=== PATIENT | male | born 1935 | race Caucasian/White ===

== ENCOUNTER → 2018-08-05 11:59 | Outpatient (CLI) | payer MEDICARE, BC | END | disposition home or self-care (01) | LOC: D.HCCARDIO 11:59 | PROVIDERS: ATTEND Internal Medicine Cardiovascular Disease | DX: I20.9 Angina pectoris, unspecified (principal) ==

== ENCOUNTER 2018-08-26 11:15 | Inpatient (IN) | payer MEDICARE, BC ==
[~2018-08-26] VITALS: Ht 172.7 cm; Wt 95.2 kg
--- NOTE | ~2018-08-26 | HEMODYNAMI ---
PATIENT:MALINDA FAN JR MEDICAL RECORD: [id number] : 37 LOCATION:[facility] ADMISSION DATE: 08/26/18 Generatedon:08/26/201814:58 Patient name: MALINDA FAN Patient #: [id number] SSN: : 1935 Date of study: 08/26/2018 Page: Of Hemodynamic Procedure Report Patient Data Patient Demographics Procedure consent was obtained First Name: MALINDA Gender: Male Last Name: MITA Suffix: Jr Osorio Initial: VLADIMIR : 1935 Patient #: [id number] Age: 82 year(s) Race: Unknown Additional ID: [id number] Contact details Address: [address] [place] [address] State: [place] City: [facility] Zip code: [address] Past Medical History Allergies: No known allergies Admission Admission Data Admission Date: 08/26/2018 Admission Time: 11:15 Admit Source: Other Lab Results Lab Result Date: 08/26/2018 Lab Result Time: 12:10 Biochemistry Name Units Result Min Max BUN mg/dl 49 --(----)-* 7 18 Creatinine mg/dl 2.3 --(----)-* 0.6 1.3 CBC Name Units Result Min Max Hematocrit % 37.2 *-(----)-- 42 54 Hemoglobin g/dl 12.5 *-(----)-- 13.5 17.5 Procedure Procedure Types Cath Procedure Diagnostic Procedure LHC LH w/Coronaries Sedation Charges Moderate Sedation up to 30 minutes Procedure Description Procedure Date Procedure Date: 08/26/2018 Procedure Start Time: 14:31 Procedure End Time: 14:57 Procedure Staff Name Function Mikel Lozoya MD Performing Physician Quinton Parada RT Monitor Maico Moncada RT Scrub Rj Holder RN Nurse Procedure Data Cath Procedure Fluoroscopy Diagnostic fluoroscopy Total fluoroscopy Time: 7.2 time: 7.2 min min Diagnostic fluoroscopy Total fluoroscopy dose: dose: 1561 mGy 1561 mGy Contrast Material Contrast Material Type Amount (ml) Isovue 300 144 Entry Location Entry Primary Successful Side Size Upsize Upsize Entry Closure Succes sful Closure Location (Fr) 1 (Fr) 2 (Fr) Remarks Device Remarks Femoral Right 5 Fr 6 Fr 6 Fr Exoseal artery Short Short Estimated blood loss: 5 ml Diagnostic catheters Device Type Used For End Catheter Placement MULTIPACK JL 4.0 5Fr Procedure catheter MULTIPACK 3DRC 5Fr Procedure catheter MULTIPACK Pigtail 5 Fr Procedure catheter DIAGNOSTIC AL1 5Fr Procedure catheter ([id number]) DIAGNOSTIC AR2 MOD 5 Fr Procedure catheter ([id number]) DIAGNOSTIC AL1 5Fr Procedure catheter ([id number]) Procedure Complications No complications Procedure Medications Medication Administration Route Dosage 0.9% NaCl I.V. 100 ml/hr Oxygen etCO2 Nasal cannula 2 l/min Heparin Flush Bag added to field 2 bags (1000units/500ml NS) Lidocaine 2% added to field 20 Versed I.V. 1 mg Fentanyl I.V. 50 mcg Versed I.V. 1 mg Fentanyl I.V. 50 mcg Hemodynamics Rest HGB: 12.5 (g/dl) Heart Rate: 89 (bpm) Pressure Samples Time Site Value (mmHg) Purpose Heart Use Rate(bpm) 14:40 LV 172/-2,22 Snapshot 86 14:41 AO 129/56(85) Pullback 78 14:41 LV 194/6,22 Pullback 78 Gradients Valve Time Site 1 Site 2 Mean SEP/DFP Peak To Heart Use (mmHg) (sec/min) Peak Rate (mmHg) (bpm) Aortic 14:41 LV AO 43 23 65 78 194/6,22 129/56(85) Calculations Valve P-P Mean Valve Index Valve Source Name Gradient Area Flow (cm2) Aortic 65 43 65 43 Snapshots Pre Cath Intra NCS Post Cath Vital Signs Time Heart Resp SPO2 etCO2 NIBP (mmHg) Rhythm Pain Sedation Rate (ipm) (%) (mmHg) Status Level (bpm) 14:17:22 84 19 95 0 136/77(112) NSR 0 (11) 10(A) , No pain 14:21:36 75 13 96 34.6 130/66(113) NSR 0 (11) 10(A) , No pain 14:25:50 78 17 94 36.1 124/65(97) NSR 0 (11) 10(A) , No pain 14:29:56 77 16 97 36.1 129/75(108) NSR 0 (11) 10(A) , No pain 14:34:08 73 14 96 0 129/66(103) NSR 0 (11) 10(A) , No pain 14:38:22 85 11 87 38.4 120/64(94) NSR 0 (11) 10(A) , No pain 14:42:32 74 19 98 38.4 123/61(100) NSR 0 (11) 9(A) , No pain 14:46:46 64 16 96 40.6 121/59(90) NSR 0 (11) 9(A) , No pain 14:50:57 78 15 98 37.6 123/61(106) NSR 0 (11) 9(A) , No pain 14:55:07 82 18 99 36.8 124/64(101) NSR 0 (11) 10(A) , No pain Medications Time Medication Route Dose Verified Delivered Reason Notes Eff ectiveness by by 14:20:55 0.9% NaCl I.V. 100 Rj Rj Per ml/hr Glory Holder physician RN RN 14:21:07 Oxygen etCO2 2 Rj Rj for low 02 Nasal l/min Lorigan Lorigan sats cannula RN RN 14:21:16 Heparin Flush added 2 Rj Rj used for Bag to bags Lorigan Lorigan procedure (1000units/500ml field RN RN NS) 14:21:26 Lidocaine 2% added 20ml Rj Rj for local to vial Lorigan Lorigan anesthetic field RN RN 14:24:08 Versed I.V. 1 mg Rj Rj for Lorigan Lorigan sedation RN RN 14:24:17 Fentanyl I.V. 50 Rj Rj for mcg Lorigan Lorigan sedation RN RN 14:31:00 Versed I.V. 1 mg Rj Rj for Lorigan Lorigan sedation RN RN 14:31:04 Fentanyl I.V. 50 Rj Rj for mcg Lorigan Lorigan sedation RN marketing regional consultant Log Time Note 13:39:04 Informed consent obtained and on chart 13:39:08 Admit Source: Other 13:39:23 Diagnostic Cath status Elective 13:39:24 Time tracking: Regular hours (M-F 7:00 - 5:00) 13:39:28 Plan of Care:Hemodynamics will remain stable., Cardiac rhythm will remain stable., Comfort level will be maintained., Respiratory function will remain adequate., Patient/ family verbilizes understanding of procedure., Procedure tolerated without complication., Recovers from procedure without complications.. 13:39:40 H&P Date Dictated: 07/31/2018 Within 30 days and on chart., H&P Addendum completed by physician on day of procedure. (MUST COMPLETE FOR ALL OUTPATIENTS). 13:39:49 Patient allergic to No known allergies 14:01:39 Rj Holder RN sent for patient. Start room use. 14:10:31 Patient received from Pre/Post Procedure Room to CCL 2 Alert and oriented. Tansferred to table in Supine position. 14:10:33 Warm blankets applied, and emeka hugger turned on for patient comfort. 14:10:33 Correct patient and procedure confirmed by team. 14:10:34 ECG and BP/O2 sat monitors applied to patient. 14:16:16 Vital chart was started 14:20:26 Baseline sample Acquired. 14:20:38 Rhythm: 1st degree heart block 14:20:39 Full Disclosure recording started 14:20:47 Pre-procedure instructions explained to patient. 14:20:48 Pre-op teaching completed and patient verbalized understanding. 14:20:55 0.9% NaCl 100 ml/hr I.V. was administered by Rj Holder RN; Per physician; 14:20:55 Family in waiting room. 14:20:57 Patient NPO since Breakfast. 14:20:59 Is the patient allergic to Iodine/contrast media? No. 14:21:02 Is patient on blood thinner?No 14:21:03 Patient diabetic? Yes. 14:21:04 If diabetic: On Metformin? No 14:21:07 Oxygen 2 l/min etCO2 Nasal cannula was administered by Rj Holder RN; for low 02 sats; 14:21:07 Previous problem with sedation/anesthesia? No ? 14:21:09 Snore? Yes 14:21:10 Sleep apnea? Yes 14:21:11 Deviated septum? No 14:21:11 Opens mouth fully? Yes 14:21:12 Sticks out tongue? Yes 14:21:13 Airway obstruction? No ? 14:21:15 Dentures? No ? 14:21:16 Heparin Flush Bag (1000units/500ml NS) 2 bags added to field was administered by Rj Holder RN; used for procedure; 14:21:23 Pre procedure: right dorsailis pedis pulse 1+ Palpable, but thready & weak; easily obliterated 14:21:26 Lidocaine 2% 20ml vial added to field was administered by Rj Holder RN; for local anesthetic; 14:21:26 Patient pain scale 0/10 ?. 14:21:34 IV patent on arrival in right antecubital with 0.9% NaCl at [facility]. 14:22:07 Lab Result : BUN 49 mg/dl 14:22: Lab Result : Creatinine 2.3 mg/dl 14:22: Lab Result : Hemoglobin 12.5 g/dl 14:22:07 Lab Result : Hematocrit 37.2 % 14:22:09 Lab results completed and on chart. 14:22:12 Right groin area was prepped with chlora-prep and draped in sterile fashion 14:22:13 Alarms reviewed by R. N. 14:22:13 Sharps counted by scrub and verified by R.N. 14:22:16 Use device set Femoral Dx 14:22:17 ACIST Syringe (67338) opened to sterile field. 14:22:17 Bag Decanter (2002S) opened to sterile field. 14:22:19 Medline Cath Pack ([id number]) opened to sterile field. 14:22:20 EMERALD Guide Wire (702-195) opened to sterile field. 14:22:21 ACIST Hand Control (95811) opened to sterile field. 14:22:22 ACIST Manifold (45875) opened to sterile field. 14:22:23 DIAGNOSTIC Multipack 5Fr catheter set ([id number]) opened to sterile field. 14:22:23 Tegaderm 4 x 4 (1626W) opened to sterile field. 14:22:24 SHEATH 5FR Sterling (CYQ930) opened to sterile field. 14:22:30 Physician arrived 14:22:30 --------ALL STOP TIME OUT------ 14:22:31 Final Timeout: patient, procedure, and site verified with staff and physician. All members of the team are in agreement. 14:22:32 Right groin site verified by team. 14:22:34 Maximum allowable Isovue 300 dose 210ml. Physician notified. (300ml for normal creatinines. For patients with creatinine of 1.7 or higher multiply weight(kg) x 5 divided by creatinine.) 14:22:37 Fire Safety Assessment: A--An alcohol-based skin anteseptic being used preoperatively., C--Open oxygen or nitrous oxide is being used., D--An ESU, laser, or fiber-optic light is being used. 14::39 Physical assessment completed. ASA score P 2 - A patient with mild systemic disease as per Mikel Lozoya MD. 14::42 Sedation plan: IV Moderate Sedation Medication:Versed, Fentanyl 14:24:08 Versed 1 mg I.V. was administered by Rj Holder RN; for sedation; 14:24:17 Fentanyl 50 mcg I.V. was administered by Rj Holder RN; for sedation; 14:31:00 Versed 1 mg I.V. was administered by Rj Hloder RN; for sedation; 14:31:04 Fentanyl 50 mcg I.V. was administered by Rj Holder RN; for sedation; 14:31:31 Procedure started. 14:31:56 Local anesthetic to right femoral artery with Lidocaine 2% by Mikel Lozoya MD.INITIAL ACCESS ONLY 14:32:01 A 5 Fr sheath was inserted into the Right Femoral artery 14:32:53 A MULTIPACK JL 4.0 5Fr catheter was advanced over the wire and used for Procedure. 14:33:12 Zero performed for pressure channel P1 14:33:16 Zero performed for pressure channel P1 14:33:24 Zero performed for pressure channel P1 14:33:29 Zero performed for pressure channel P1 14:34:16 LCA angiography performed. 14:38:17 Catheter exchanged over wire. 14:38:25 A MULTIPACK 3DRC 5Fr catheter was advanced over the wire and used for Procedure. 14:39:14 Catheter removed. unable to cannulate vessel. 14:39:37 A MULTIPACK Pigtail 5 Fr catheter was advanced over the wire and used for Procedure. 14:40:45 LV hemodynamics recorded. 14:40:46 LV gram done using HERNANDEZ 14:40:48 Injector settings: Ml/sec: 10, Volume: 20, 14:41:02 EF : 50 % 14:42:11 Aortic Root visualized 14:42:28 Catheter exchanged over wire. 14:42:31 A DIAGNOSTIC AL1 5Fr catheter ([id number]) was advanced over the wire and used for Procedure. 14:45:39 Catheter removed. unable to cannulate vessel. 14:45:57 A DIAGNOSTIC AR2 MOD 5 Fr catheter ([id number]) was advanced over the wire and used for Procedure. 14:47:55 Catheter removed. unable to cannulate vessel. 14:48:19 SHEATH 6FR Brite Tip 35cm ([id number]) opened to sterile field. 14:48:28 Sheath upsized to a 6 Fr Short. 14:48:38 SHEATH 6FR Sterling (IBC475) opened to sterile field. 14:51:09 A DIAGNOSTIC AL1 5Fr catheter ([id number]) was advanced over the wire and used for Procedure. 14:51:34 RCA angiography performed. 14:53:53 Catheter removed. 14:54:03 Sheath upsized to a 6 Fr Short. 14:54:13 EXOSEAL 6Fr (EX600) opened to sterile field. 14:54:51 Sheath removed intact; hemostasis achieved with Exoseal to the Right Femoral artery. 14:54:52 Procedure ended.(Physican Out) 14:55:35 Fluoroscopy time 07.20 minutes. 14:55:40 Fluoroscopy dose: 1561 mGy 14:55:40 Flurop Dose total: 1561 14:55:56 Contrast amount:Isovue 300 144ml. 14:55:59 Sharps counted by scrub and verified by R.N. 14:56:00 Insertion/operative site no bleeding no hematoma. 14:56:02 Post-op/insertion site Right Femoral artery dressed using a 4 x 4 and Tegaderm. 14:56:07 Post right femoral artery:stable, soft, clean and dry 14:56:08 Post Procedure Pulses reassessed and unchanged 14:56:10 Post-procedure physical assessment completed. ASA score P 2 - A patient with mild systemic disease as per Mikel Lozoya MD. 14:56:12 Post procedure rhythm: unchanged. 14:56:14 Estimated blood loss: 5 ml 14:56:15 Post procedure instruction explained to patient.Patient verbalizes understanding. 14:56:16 Patient needs reinforcement of post procedure teaching. 14:56:27 Procedure type changed to Cath procedure, Diagnostic procedure, LHC, LHC w/Coronaries, Sedation Charges, Moderate Sedation up to 30 minutes 14:56:57 Procedure and supply charges have been captured, reviewed, submitted and are correct. 14:56:59 Procedure Complication : No complications 14:57:02 Vital chart was stopped 14:57:02 See physician's report for complete and final results. 14:57:04 Report given to PCU. 14:57:08 Patient transfered to PCU with Stretcher. 14:57:15 Procedure ended. 14:57:15 Full Disclosure recording stopped 14:57:21 End room use (Document Last) Device Usage Item Name Manufacture Quantity Catalog Hospital Part Current Minimal L ot# / Number Charge Number Stock Stock Serial# Code ACIST Acist 1 37262 253718 012182 830182 20 Syringe Medical (42029) Systems DynaPump Bag Microtek 1 2001S 181601 98655 245277 5 Decanter Medical Inc. () Medline Medline 1 [id number] 067805 58337 980963 5 Cath Pack ([id number]) EMERALD Cardinal 1 502-455 713396 154304 840694 5 Guide Wire Health (502-455) ACIST Hand Acist 1 13070 638980 674798 966179 5 Control Medical (25659) Systems Inc ACIST Acist 1 13559 417034 728833 447330 5 Manifold Medical (52753) Systems Inc DIAGNOSTIC Cardinal 1 SB0944 356705 38596 968241 30 Multipack Health 5Fr catheter set (CF7641) Tegaderm 4 3M 1 1626W 726493 826150 379209 5 x 4 (1626W) SHEATH 5FR Terumo 1 QJL384 409194 171312 534705 5 Sterling (ZTB950) MULTIPACK Cardinal 1 869322 5 JL 4.0 5Fr Health catheter MULTIPACK Cardinal 1 685562 5 3DRC 5Fr Health catheter MULTIPACK Cardinal 1 613957 5 Pigtail 5 Health Fr catheter DIAGNOSTIC Cardinal 1 [id number] 354832 947336 199593 15 AL1 5Fr Health catheter (754332Z) DIAGNOSTIC Cardinal 1 [id number] 627754 118659 205759 20 AR2 MOD 5 Health Fr catheter (826952D) SHEATH 6FR Cardinal 1 132954U 285493 976596 257758 1 Brite Tip Health 35cm (531532L) SHEATH 6FR Terumo 1 YPY223 365440 071528 415693 40 Sterling (KDO101) EXOSEAL 6Fr Cardinal 1 EX600 690910 989588 382005 10 (EX600) Health Signature Audit [place] Stage Time Signature Unsigned Intra-Procedure 08/26/2018 Maico Moncada 2:58:16 PM RT(R) Signatures Monitor : Quinton Parada RT Signature : Date : Time : [address] [address]
[2018-08-26] MEDS ORDERED: FUROSEMIDE40 MG PO (11:44)
[2018-08-26] MEDS ORDERED: LEVO-T25 MCG PO (11:44)
[2018-08-26] MEDS ORDERED: TRADJENTA5 MG PO (11:45)
[2018-08-26] MEDS ORDERED: GLIMEPIRIDE2 MG PO (11:45)
[2018-08-26] MEDS ORDERED: LISINOPRIL-HCT1 EAC7 PO (11:45)
[2018-08-26] MEDS ORDERED: HYTRIN5 MG PO (11:46)
[2018-08-26] MEDS ORDERED: NORVASC5 MG PO (11:46)
[2018-08-26] MEDS ORDERED: CATAPRES0.1 MG PO (11:46)
[2018-08-26] MEDS ORDERED: ZYLOPRIM300 MG PO (11:47)
[2018-08-26 12:08] VITALS: BP 146/60; BMI 32.7
[2018-08-26 12:21] LABS: BASOPHILS 0.3 % (0-2); EOSINOPHILS 0 % (0-7); HEMATOCRIT 37.2 % (42.0-54.0); HEMOGLOBIN 12.5 g/dL (13.5-17.5); IMMATURE GRANULOCYTES 0.3 % (0-5); LYMPHOCYTES 13.3 % (15-50); MCH 30.2 pg (26.0-34.0); MCHC 33.6 g/dL (31.0-37.0); MCV 89.9 fL (80.0-100.0); MEAN PLATELET VOLUME 9.5 fL (7.4-10.4); MONOCYTES 4.1 % (2-11); PLATELET COUNT 125 10x3/uL (130-400); RBC 4.14 10x6/uL (4.20-6.10); RDW 14.8 % (11.5-14.5); WBC 9.8 10x3/uL (4.8-10.8)
[2018-08-26 12:27] LABS: ANION GAP 10.4 mmol/L (8-16); CALCIUM 9.9 mg/dL (8.5-10.1); CREATININE - SERUM 2.3 mg/dL (0.6-1.3); POTASSIUM - SERUM 4.4 mmol/L (3.5-5.1)
--- NOTE | 2018-08-26 15:31 | NUR ---
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 VS WNL. RIGHT GROIN STABLE WITHOUT BLEEDING OR HEMATOMA NOTED. WILL MONITOR.
[2018-08-26 15:34] VITALS: BP 133/77; BMI 32.9
[2018-08-26 16:38] VITALS: BP 118/63
--- NOTE | 2018-08-26 17:18 | NUR ---
BED REST UP. GROIN STABLE.
--- NOTE | 2018-08-26 19:10 | NUR ---
RESUMING PATIENT CARE. PATIENT IS ALERT AND ORIENTED, RESTING COMFORTABLY IN BED. RESPIRATIONS ARE EVEN AND UNLABORED. NO S/S OF DISTRESS. NO C/O PAIN. CALL LIGHT WITHIN REACH. WILL CPOC.
[2018-08-26 20:00] VITALS: BP 130/66
[2018-08-27] VITALS (15 sets, daily range): BP systolic 134–166; BP diastolic 61–80
[2018-08-27 06:54] LABS: ANION GAP 12.7 mmol/L (8-16); CARBON DIOXIDE 27.7 mmol/L (21.0-32.0); CREATININE - SERUM 2.2 mg/dL (0.6-1.3); POTASSIUM - SERUM 4.4 mmol/L (3.5-5.1)
--- NOTE | 2018-08-27 09:04 | NUR ---
SCDS ON ORDERED.
[2018-08-27 09:05] LABS: HEMATOCRIT 35.2 % (42.0-54.0); HEMOGLOBIN 11.6 g/dL (13.5-17.5); MCH 29.7 pg (26.0-34.0); MCV 90.3 fL (80.0-100.0); MEAN PLATELET VOLUME 9.8 fL (7.4-10.4); RBC 3.9 10x6/uL (4.20-6.10); RDW 14.8 % (11.5-14.5)
[2018-08-27 09:08] LABS: APTT 32.6 SECONDS (22.8-39.4); INR 1.08 (0.85-1.17); PROTIME 13.5 SECONDS (11.6-15.0); WBC 7.3 10x3/uL (4.8-10.8)
--- NOTE | 2018-08-27 12:32 | NUR ---
REPORT CALLED. TRANSFERED TO CV02 BY W/C.
--- NOTE | 2018-08-27 12:40 | NUR ---
RECIEVED PT AT THIS TIME FROM MED2 VIA WHEELCHAIR ACCOMPANIED BY HOSPITAL STAFF AND . NO ACUTE DISTRESS NOTED. WILL CONTINUE PLAN OF CARE.
--- NOTE | 2018-08-27 13:14 | NUR ---
UPON ASSESSMENT NOTED SCABS/SORES TO BUTTOCKS WITH NONBLANCHABLE REDNESS/DARK PURPLE IN COLOR. PT STATED HE HAS HAD ISSUES WITH BUTTOCKS HEALING FOR ABOUT A YEAR NOW WHEN ASKED. AIR OVERLAY ORDERED. WOULD CONSULT PLACED. PT TURNED Q2H. WILL CONTINUE PLAN OF CARE.
[2018-08-27 14:07] LABS: BASOPHILS 0.4 % (0-2); EOSINOPHILS 0 % (0-7); HEMATOCRIT 37.9 % (42.0-54.0); HEMOGLOBIN 12.7 g/dL (13.5-17.5); IMMATURE GRANULOCYTES 0.2 % (0-5); LYMPHOCYTES 12.6 % (15-50); MCHC 33.5 g/dL (31.0-37.0); MCV 89.6 fL (80.0-100.0); MEAN PLATELET VOLUME 9.7 fL (7.4-10.4); MONOCYTES 7.1 % (2-11); NEUTROPHILS 79.7 % (40-80); PLATELET COUNT 125 10x3/uL (130-400); RBC 4.23 10x6/uL (4.20-6.10); RDW 14.8 % (11.5-14.5); WBC 8.5 10x3/uL (4.8-10.8)
--- NOTE | 2018-08-27 14:21 | NUR ---
PER DR STEW ECHEVARRIA'S NURSE, STOP HEPARIN GTT AT 0400 TOMORROW MORNING.
[2018-08-27 14:32] LABS: ALBUMIN 3.1 g/dL (3.4-5.0); ANION GAP 15.4 mmol/L (8-16); BILIRUBIN - TOTAL 0.47 mg/dL (0.2-1.3); CALCIUM 9.2 mg/dL (8.5-10.1); CREATININE - SERUM 2.4 mg/dL (0.6-1.3); PHOSPHOROUS 3.7 mg/dL (2.5-4.9); POTASSIUM - SERUM 4.4 mmol/L (3.5-5.1); PROTEIN - SERUM 7.1 g/dL (6.4-8.2); T4 THYROXIN - FREE 1.17 ng/dL (0.76-1.46); THYROID STIMULATING HORMONE 1.25 uIU/mL (0.36-3.74); URIC ACID 4.8 mg/dL (2.6-7.2)
[2018-08-27] MEDS ORDERED: LASIX40 MG PO (15:05)
[2018-08-27] MEDS ORDERED: PRINIVIL20 MG PO (15:06)
--- NOTE | 2018-08-27 15:21 | NUR ---
NOTED AT 1444 HEART RATE INCREASED FROM 90S TO 144. WENT TO OBTAIN EKG, HEART RATE WENT BACK DOWN TO 101 AND PER EKG RHYTHM IS VENTRICULAR PACED. DR MARTIN NOTIFIED OF THIS AND STATED WILL CONTINUE TO WATCH. ALSO NOTIFIED OF PTS SBP UP TO 150S AND 160S, ORDERED TO RESTART HOME CLONIDINE 0.1 BID. NO ACUTE DISTRESS NOTED. PT DENIES ANY NEEDS. WILL CONTINUE PLAN OF CARE.
--- NOTE | 2018-08-27 16:42 | NUR ---
ONE TIME ORDER RECIEVED FOR 25 LOPRESSOR PO NOW.
--- NOTE | 2018-08-27 17:16 | NUR ---
PER DR BEARD, SLIDING SCALE ORDERED ACHS, KEEP ACHS.
--- NOTE | 2018-08-27 17:24 | NUR ---
PER DR BEARD GIVE 2100 CLONIDINE NOW.
--- NOTE | 2018-08-27 17:45 | MORECARE ---
CASE MANAGEMENT DISCHARGE SUMMARY PATIENT: MALINDA FAN JR UNIT: [id number] ADM DATE: 08/27/18 AGE: 82 : 36 SEX: M [facility] AUTHOR: FRANKIE SHEN PHYSICIAN: REFERRING PHYSICIAN: AMANDO HORNER M.D. DATE OF SERVICE: 08/27/18 Discharge Plan Patient Name: MALINDA FAN Facility: [facility]:[place] : 1935 Planned Disposition: Home Anticipated Discharge Date: Discharge Date: Expected LOS: Initial Reviewer: [email or web address] Initial Review Date: 08/27/2018 Generated: 08/27/18 6:45 pm Patient Name: MALINDA FAN Page 21502 at 1740 All edits/amendments must be made on the electronic document DICTATION DATE: 08/27/181744 BLAST FURNACE BLOWER: TANYA 08/27/181744 RPT#: [id number] DC DATE: STATUS: ADM IN [facility] [address] [place] [address] END OF REPORT
--- NOTE | 2018-08-27 17:53 | MORECARE ---
CASE MANAGEMENT DISCHARGE SUMMARY PATIENT: MALINDA FAN JR UNIT: [id number] ADM DATE: 08/27/18 AGE: 82 : 36 SEX: M [facility]ED: [facility] AUTHOR: AC,DOC PHYSICIAN: REFERRING PHYSICIAN: AMANDO HORNER M.D. DATE OF SERVICE: 08/27/18 Discharge Plan Patient Name: MALINDA FAN Facility: [facility]:[place] : 1935 Planned Disposition: Home Anticipated Discharge Date: Discharge Date: Expected LOS: Initial Reviewer: [email or web address] Initial Review Date: 08/27/2018 Generated: 08/27/18 6:53 pm Comments DCP- Discharge Planning Updated by [email or web address]: Lenore Knapp on 08/27/18 4:[address] Patient Name: MALINDA FAN Admission Status: Elective Accout number: [id number] Admission Date: 08-27-2018 : 1935 Admission Diagnosis: Attending: AMANDO HORNER Current LOS: 1 Anticipated DC Date: Planned Disposition: Home Primary Insurance: MEDICARE A & B Discharge Planning Comments: CM met with patient and spouse (Priti) at bedside after explaining CM role and obtaining verbal consent. Patient lives at home with his Steffi and plans to return there upon discharge. Patient feels this would be a safe discharge. CM discussed availability / needs of home health and medical equipment. Patient states that he has CPAP. Patient denies any discharge needs at this time. Patient states he will have his drive him home upon discharge. CM will continue to follow and assist as needed with discharge planning / needs. Lapel Padder: Lenore Knapp DCPIA - Discharge Planning Initial Assessment Updated by [email or web address]: Lenore Knapp on 08/27/18 5:46 pm * Is the patient Alert and Oriented? Yes * How many steps to enter\exit or inside your home? * PCP DESTIN * Pharmacy [facility] * Preadmission Environment Home with Family * ADLs Independent * Equipment CPAP * List name and contact numbers for known caregivers / representatives who currently or will assist patient after discharge: PRITI FAN - - [phone], * Verbal permission to speak to the caregivers and representatives has been obtained from the patient. Yes * Community resources currently utilized None * Additional services required to return to the preadmission environment? No * Can the patient safely return to the preadmission environment? Yes * Has this patient been hospitalized within the prior 30 days at any hospital? No Last DP export: 08/27/18 4:45 p Patient Name: MALINDA FAN Page [phone] at 1753 All edits/amendments must be made on the electronic document DICTATION DATE: 08/27/181752 ESCALATOR ATTENDANT: TANYA 08/27/181752 RPT#: [id number] DC DATE: STATUS: ADM IN [facility] [address] [place] [address] END OF REPORT
--- NOTE | 2018-08-27 18:19 | NUR ---
PTS PRIMARY PHYSICIAN IS DESTIN, PRIMARY CONSULT FOR MED MANAGEMENT CHANGED FROM MARTIN TO DESTIN. PHYSICIAN LINE WORKER FOR DESTIN PAGED AT THIS TIME.
--- NOTE | 2018-08-27 18:20 | NUR ---
DR CHE, TOOL LAPPER HAND FOR DR ALBERT, PAGED FOR DR BEARD
[2018-08-28] VITALS (42 sets, daily range): BP systolic 97–159; BP diastolic 28–68; BMI 32.8
[2018-08-28 14:22] LABS: MCH 29.4 pg (26.0-34.0); MCHC 33.1 g/dL (31.0-37.0); MCV 88.9 fL (80.0-100.0); MEAN PLATELET VOLUME 8.7 fL (7.4-10.4); RDW 14.8 % (11.5-14.5)
[2018-08-28 14:27] LABS: HEMATOCRIT 29.6 % (42.0-54.0); HEMOGLOBIN 9.8 g/dL (13.5-17.5); PLATELET COUNT 98 10x3/uL (130-400); RBC 3.33 10x6/uL (4.20-6.10); WBC 16.3 10x3/uL (4.8-10.8)
[2018-08-28 14:34] LABS: APTT 38.8 SECONDS (22.8-39.4); INR 1.52 (0.85-1.17); PROTIME 17.7 SECONDS (11.6-15.0)
[2018-08-28 14:46] LABS: PLATELET ESTIMATE DECREASED
--- NOTE | 2018-08-28 15:04 | NUR ---
DR VANN NOTIFIED OF RESPIRATORY CONSULT
[2018-08-28 16:27] LABS: HEMATOCRIT 26.4 % (42.0-54.0); HEMOGLOBIN 8.9 g/dL (13.5-17.5); MCH 29.7 pg (26.0-34.0); MCHC 33.7 g/dL (31.0-37.0); MEAN PLATELET VOLUME 8.3 fL (7.4-10.4); RDW 15.1 % (11.5-14.5); WBC 14.9 10x3/uL (4.8-10.8)
[2018-08-28 16:33] LABS: INR 1.33 (0.85-1.17); PROTIME 15.9 SECONDS (11.6-15.0)
--- NOTE | 2018-08-28 19:15 | NUR ---
REPORT REC'D AND CARE ASSUMED, REC'D PT ON VENT VIA 7.5 ETT TAPED @ 24CM LIPLINE SEE FLOWSHEET FOR VENT SETTINGS, PT AROUSABLE TO DEEP STIMULI, DOES NOT FOLLOW COMMANDS, RIDustin JORGE HUNTLEY LOCKED IN POSITION @ APPROX 50CM, 2ND UNIT PRBC INFUSING VIA WHITE PORT AND DIPRIVAN INFUSING @ 7.5MCG/KG/MIN OR 4.4CC/HR VIA BROWN PORT, DRSG CDI MANNIFOLD TO PROXIMAL INJECTATE WITH NS @ 100CC/HR, NEOSYNEPHRINE @ 0.2MCG/KG/MIN OR 6CC/HR, LEVOPHED @ 0.1MCG/KG/MIN OR 18.4CC/HR, RIGHT A/C PIV WITH ZINACEF INFUSING @ 11.4CC/HR, RIGHT RADIAL HELGA WITH FLEXION BOARD INTACT, LEVELED AND ZEROED WITH RETURN OF APPROPRIATE WAVEFORM, MIDSTERNAL DRSG CDI, ABD DISTENDED AND SOFT,BS ABSENT X 4, EXTERNAL P/M WIRE COILED UNDERNEATH DRSG, MEDIASTINAL CT'S X 2 TO 20 CM H2O SUCTION, SANGUINOUS DRAINAGE, NO AIR LEAK NOTED, BERTHA DRAIN TO LEFT SUBSTERNAL AREA WITH SANGUINOUS DRAINAGE NOTED, CRITICORE WILDE PATENT DRAINING MINIMAL YELLOW URINE, MD AWARE, RIGHT LEG COBAN DRSG CDI, PPP, AIR OVERLAY MATTRESS IN USE, BILAT SOFT WRIST RESTRAINTS INTACT, 1:1 NURSING IN USE.
--- NOTE | 2018-08-28 20:15 | NUR ---
NO VISITORS IN AT THIS TIME, FSBS 219, INSULIN GTT INITIATED @ 2 UNITS/HR, WILL RECHECK IN 30 MINUTES
--- NOTE | 2018-08-28 21:00 | NUR ---
SPOKE WITH DR. MATHIAS AND PROVIDED UPDATE ON PT, NEW ORDER REC'D TO PLACE OGT AT THIS TIME FOR ABD DISTENSION.
[2018-08-28 21:20] LABS: APPEARANCE HAZY (CLEAR); COLOR YELLOW (YELLOW)
--- NOTE | 2018-08-28 21:20 | NUR ---
16 FR OGT PLACED WITHOUT DIFFICULTY, PLACEMENT VERIFIED VIA AIR BOLUS AUSCULTATED OVER EPIGASTRIM, OGT PLACED TO LIWS, WITH SMALL AMOUNT PALE YELLOW RETURN, PT TOLERATED WELL.
[2018-08-28 21:21] LABS: BILIRUBIN NEGATIVE (NEGATIVE); GLUCOSE NEGATIVE (NEGATIVE); KETONE NEGATIVE (NEGATIVE); NITRITE NEGATIVE (NEGATIVE); PROTEIN TRACE mg/dL (NEGATIVE); UROBILINOGEN NORMAL (NORMAL)
[2018-08-28 21:28] LABS: BACTERIA MANY /hpf (NONE SEEN); RED CELLS - URINE >50 /hpf (0-5); WHITE CELLS - URINE 0-5 /hpf (0-5)
--- NOTE | 2018-08-28 23:00 | NUR ---
REASSESSMENT COMPLETED, PT RESTING EYES CLOSED ON VENT, AROUSABLE TO DEEP STIMULI, OCCASIONALLY WILL NOD HEAD YES AND NO APPROPRIATELY TO QUESTIONS, OGT TAPED SECURELY TO ETT, HARPREET DOLL CDI, MANNIFOLD WITH IV FLUIDS PREVIOUSLY CHARTED, TITRATING GTTS ACCORDING TO ORDERS, ORAL CARE PROVIDED, VSS, WILL CONT TO MONITOR FOR CHANGES.
[2018-08-29] VITALS (98 sets, daily range): BP systolic 90–130; BP diastolic 4–66
--- NOTE | 2018-08-29 00:10 | NUR ---
RT AT FOR TIMED ABG
--- NOTE | 2018-08-29 00:20 | NUR ---
DR. MATHIAS CALLED REGARDING DECREASED PA PRESSURE AND SBP 90'S, ORDER REC'D TO KEEP SBP 90-120.
[2018-08-29 00:25] LABS: HEMATOCRIT 30.8 % (42.0-54.0); MCH 30.7 pg (26.0-34.0); MCHC 34.7 g/dL (31.0-37.0); MCV 88.5 fL (80.0-100.0); MEAN PLATELET VOLUME 9.1 fL (7.4-10.4); RBC 3.48 10x6/uL (4.20-6.10); RDW 15.1 % (11.5-14.5)
[2018-08-29 00:26] LABS: HEMOGLOBIN 10.7 g/dL (13.5-17.5)
--- NOTE | 2018-08-29 01:30 | NUR ---
NO CHANGES IN STATUS AT THIS TIME.
--- NOTE | 2018-08-29 03:00 | NUR ---
REASSESSMENT COMPLETED, ATTEMPTING TO WEAN NEOSYNEPHRINE TOLERATED, PT WILL AWAKEN TO VERBAL STIMULI, WILL NOD YES AND NO APPROPRIATELY, DRIFTS BACK TO SLEEP QUICKLY, WILL CONT TO MONITOR CLOSELY FOR CHANGES.
--- NOTE | 2018-08-29 04:15 | NUR ---
CHG BATH GIVEN AND COMPLETE LINEN CHANGE PROVIDED, PT REPOSITIONED UP IN BED FOR COMFORT, ORAL CARE PROVIDED.
--- NOTE | 2018-08-29 04:45 | NUR ---
RADIOLOGY @ BS FOR AM CXR
--- NOTE | 2018-08-29 06:00 | NUR ---
AM MEDS GIVEN, AM LAB DRAWN FROM [facility] AND SENT TO LAB, PT RESTING EYES CLOSED, RESP EVEN AND UNLABORED ON VENT, VSS.
[2018-08-29 06:30] LABS: BASOPHILS 0.2 % (0-2); EOSINOPHILS 0 % (0-7); HEMATOCRIT 29.7 % (42.0-54.0); IMMATURE GRANULOCYTES 0.6 % (0-5); LYMPHOCYTES 3.4 % (15-50); MCH 29.5 pg (26.0-34.0); MCHC 33.7 g/dL (31.0-37.0); MCV 87.6 fL (80.0-100.0); MEAN PLATELET VOLUME 9.6 fL (7.4-10.4); MONOCYTES 6.4 % (2-11); NEUTROPHILS 89.4 % (40-80); PLATELET COUNT 142 10x3/uL (130-400); RBC 3.39 10x6/uL (4.20-6.10); RDW 15.7 % (11.5-14.5)
[2018-08-29 06:38] LABS: APTT 32.5 SECONDS (22.8-39.4); INR 1.43 (0.85-1.17); PROTIME 16.8 SECONDS (11.6-15.0)
--- NOTE | 2018-08-29 06:45 | NUR ---
DR. MATHIAS NOTIFIED OF SBP 80'S, LAB VALUES AND ABG PROVIDED, NEW ORDERS REC'D.
[2018-08-29 06:48] LABS: ALBUMIN 2.5 g/dL (3.4-5.0); ANION GAP 15.2 mmol/L (8-16); BILIRUBIN - TOTAL 0.59 mg/dL (0.2-1.3); CALCIUM 8.3 mg/dL (8.5-10.1); CARBON DIOXIDE 25.2 mmol/L (21.0-32.0); MAGNESIUM - SERUM 2.7 mg/dL (1.8-2.4); POTASSIUM - SERUM 4.4 mmol/L (3.5-5.1); PROTEIN - SERUM 5.6 g/dL (6.4-8.2)
[2018-08-29 06:49] LABS: CREATININE - SERUM 3.3 mg/dL (0.6-1.3)
--- NOTE | 2018-08-29 07:15 | NUR ---
REPORT GIVEN TO ONCOMING SHIFT, 200CC NS BOLUS BEGUN, WILL MONITOR FOR CHANGES.
--- NOTE | 2018-08-29 09:58 | NUR ---
0715-RECIEVED PER FLOW SHEET-ALBUMIN INFUSING ORDERED AND CACL STARTED AND SET TO RUN OVER 1 HR VIA BURETROL-PT ABLE TO NOD CORRECTLY TO QUESTIONS AND ABLE TO COMMUNICATE NEEDS WITH GESTURES-REPOSITIONED HIPS AND SHOULDERS TO COMFORT-QUESTIONED IF REQUIRED PAIN MED-NODDED NO 0800-FRIEND AWAKENED PT WITH TACTILE AND VERBAL-NOTED RECOGNITION-ENCOURAGED VISITOR NOT TO DISTURB-HR INCREASED TO 120-?AFIB PACED VENT-DIPRIVAN INCREASED TO 10-ASKED PT IF PAIN -NODDED YES-MORPHINE 2MG IVP GIVEN 0920- AT [facility] -CONFIRMED DR AMANDO BONNER ACTIVE TREATMENT FOR CA PROSTATED AND THROAT-NO SURGICAL INTERVENTION TO THROAT-CONFIRMED PRIMARY AND PREFERED PHYSICIAN-DR WEIR-MADE AWARE OF CONSULT-08/28/18 AT 1800-WITH TELEPHONE CONFIRMATION-PASS WORD ESTABLISHED
--- NOTE | 2018-08-29 10:32 | NUR ---
DR ZAMUDIO AT BEDSIDE-CONFIRMED WITH SAME ERROR MADE ASSIGNING CONSULT-SAME DISCONTINUED AND DR WEIR TO BE CONSULTED FOR MEDICAL MANAGEMENT-DR WEIR MADE AWARE
--- NOTE | 2018-08-29 14:51 | NUR ---
1200- AT [facility]-CONFIRMED DR WEIR FOR PRIMARY CARE-EXPONDED ON PT MEDICAL STATUS-STATED ONCOLOGY-CA IN THROAT AND PROSTATE-HAS NOT HAD "TREATMENT" FOR ABOUT 5 WKS BECAUSE HEALTH TO POOR-DR BONNER SENT TO [facility] 1215-DR VANN AT BEDSIDE AND UPDATE ON PT HISTORY-CONSULT FOR ONCOLOGY CALLED TO DR HUIZAR/HA-DR MATHIAS AT BEDSIDE AND UPDATED -NEOSYNEPHRINE DECREASED TO 0.3 DIRECTED 1400-DR HUIZAR AT BEDSIDE-STATUS REPORT GIVEN-NO FURTHER ORDERS RECIEVED
--- NOTE | 2018-08-29 18:45 | NUR ---
2495-DR WEIR AND JOMAR AT BEDSIDE-SPOKE WITH AND DAUGHTER REGARDING CURRENT STATUS AND COURSE OF EVENTS-POSSIBLE PATHWAYS -QUESTIONS ADDRESSED REGARDING DIALYSIS AN OPTION DR HADLEY DECREASED N/S TO 20ML/H 1800-R LEG DRESSING REMOVED -INCISION INTACT-X3--CHEST TUBE DRGS CHANGED-PACER WIRE INTACTX1
--- NOTE | 2018-08-29 19:15 | NUR ---
REC'D PT RESTING IN BED ON VENT VIA 7.5 ETT TAPED @ APPROX 27CM LIPLINE, PT AWAKE AT INTERVALS NODDING YES AND NO APPROPRIATELY, OGT TAPED SECURELY TO ETT PLACEMENT VERIFIED VIA SM AIR BOLUS AUSCULTATED OVER EPIGASTRIM, MIDSTERNAL DRSG CDI, SUBSTERNAL DRSG CDI INTO PACER WIRE AND MEDIASTINAL CT'S X 2, CT'S TO 20 CM H20 SUCTION, LEFT SUBSTERNAL BERTHA DRAIN COMPRESSED WITH SANGUINOUS DRAINAGE NOTED, RIGHT FOREARM SKIN TEAR NOTED VASELIN GAUZE COVERING, RIGHT RADIAL HELGA WITH FLEXION BOARD IN USE, RIJ SWAN YUKO DRSG CDI SWAN LOCKED @ APPROX 50CM, DIPRIVAN TO BROWN LUMEN @ 12 MCG/KG/MIN, MANNIFOLD TO PROXIMAL INJECTATE WITH NS @ 20CC/HR, NEOSYNEPHRINE @ 0.35 MCG/KG/MIN, INSULIN @ 2 UNITS/HR, LEVOPHED @ 0.2 MCG/KG/MIN, AND PRIMACOR @ 0.375 MCG/KG/MIN, LEFT A/C PIV WITH ZINACEF @ 11.4CC/HR, GENERALIZED EDEMA, CRITICORE WILDE PATENT DRAINING MINIMAL YELLOW URINE, INCISIONS X 3 TO RIGHT LEG, OPEN TO AIR, NO DRAINAGE OR REDNESS NOTED, BILAT TEDS AND SCDS INTACT AND ON, PPP, AIR OVERLAY MATTRESS IN USE, BILAT SOFT WRIST RESTRAINTS INTACT, SR UP X 2, BED IN LOW POSITION.
--- NOTE | 2018-08-29 20:00 | NUR ---
NO VISITORS IN AT THIS TIME. PT RESTLESS IN BED, ATTEMPTING TO BITE ETT, INSTRUCTED PT NOT TO BITE ETT, WHEN ASKED IF HOT PT NODS HEAD YES, SWEAT NOTED ON PT'S FACE, FACE WASHED AND COOL CLOTH PLACED TO FOREHEAD, WILL MONITOR CLOSELY FOR CHANGES.
--- NOTE | 2018-08-29 21:05 | NUR ---
EVENING MEDS GIVEN ORDERED AND OGT CLAMPED FOR 1 HOUR.
--- NOTE | 2018-08-29 22:00 | NUR ---
PT RESTLESS IN BED PULLING AT RESTRIANTS, SCOOTING SELF LOWER IN BED, WEDGES REMOVED FROM RIGHT SIDE AND PT POSITIONED TO BACK AND UP IN BED FOR COMFORT, ARMS ELEVATED ON PILLOWS, BP STABLE, PT NODS HEAD YES WHEN ASKED IF MORE COMFORTABLE.
--- NOTE | 2018-08-29 23:00 | NUR ---
REASSESSMENT COMPLETED, PT RESTING EYES CLOSED, MIDSTERNAL DRSG CDI, SUBSTERNAL DRSG LOOSE, DRSG CHANGE PROVIDED AT THIS TIME, RT AT BS, ORAL CARE PROVIDED, VSS, WILL ATTEMPT TO WEAN NEOSYNEPHRINE TOLERATED.
[2018-08-30] VITALS (98 sets, daily range): BP systolic 84–134; BP diastolic 31–64; Ht 172.7 cm; Wt 95.2 kg
--- NOTE | 2018-08-30 00:44 | NUR ---
PT RESTLESS IN BED, NODS YES WHEN ASKED IF UNCOMFORTABLE, PT REPOSITIONED ONTO LEFT SIDE SUPPORTED WITH WEDGES, SBP INCREASED TO 101 WITH TALKING AND MOVING PATIENT, BP 89/38 WITH PATIENT AT REST, WILL MONITOR CLOSELY FOR CHANGES.
--- NOTE | 2018-08-30 01:05 | NUR ---
SBP TRENDING 80'S, RT AT BS FOR ABG
--- NOTE | 2018-08-30 01:10 | NUR ---
BASE EXCESS - 9.6, 2 AMPS OF BICARB GIVEN SLOW IVP PER STANDING PRN ORDER, HR INCREASED TO 118 WHILE PUSHING 1ST AMP OF BICARB WILL PAUSE BETWEEN AMPS
--- NOTE | 2018-08-30 02:20 | NUR ---
NEW ABG OBTAINED AND DR. MATHIAS CALLED REGARDING DECREASED SBP, NEW ORDER REC'D FOR 500 CC NS BOLUS AND 1 AMP SODIUM BICARB.
--- NOTE | 2018-08-30 02:35 | NUR ---
BP INCREASED TO 105/43 WHILE ADMINISTERING BICARB, PT REPOSITIONED IN BED FOR COMFORT, WILL MONITOR CLOSELY FOR CHANGES. FSBS 199, INSULIN GTT RESUMED @ 3 UNITS/HR
--- NOTE | 2018-08-30 03:15 | NUR ---
SBP 80/34, ABG OBTAINED AND DR. MATHIAS NOTIFIED ORDERS REC'D FOR 300 CC 25% ALBUMIN, 200CC NS BOLUS AND PRIMACOR D/C'D
--- NOTE | 2018-08-30 04:10 | NUR ---
BP IMPROVED 98/39, HR 93, PT RESTING EYES CLOSED, WILL MONITOR CLOSELY FOR CHANGES.
--- NOTE | 2018-08-30 04:25 | NUR ---
RT AT BS FOR AM BLOOD GAS
--- NOTE | 2018-08-30 05:10 | NUR ---
DR. MATHIAS NOTIFIED OF DECREASED BP, NEW ORDERS REC'D FOR 2AMPS BICARB TO BE GIVEN SLOWLY AND EPINEPHRINE GTT TO KEEP SBP > 90.
[2018-08-30 05:46] LABS: BASOPHILS 0.1 % (0-2); EOSINOPHILS 0 % (0-7); HEMATOCRIT 26.9 % (42.0-54.0); HEMOGLOBIN 8.9 g/dL (13.5-17.5); IMMATURE GRANULOCYTES 0.4 % (0-5); LYMPHOCYTES 2.1 % (15-50); MCH 29.1 pg (26.0-34.0); MCHC 33.1 g/dL (31.0-37.0); MCV 87.9 fL (80.0-100.0); MEAN PLATELET VOLUME 10.2 fL (7.4-10.4); MONOCYTES 6.3 % (2-11); NEUTROPHILS 91.1 % (40-80); RBC 3.06 10x6/uL (4.20-6.10); RDW 16.1 % (11.5-14.5); WBC 16.7 10x3/uL (4.8-10.8)
[2018-08-30 05:49] LABS: PLATELET COUNT 100 10x3/uL (130-400)
--- NOTE | 2018-08-30 06:00 | NUR ---
RADIOLOGY AT BS FOR CXR, SODIUM BICARB SLOWLY INFUSING, BP 98/40, WILL CONT TO MONITOR CLOSELY FOR CHANGES.
[2018-08-30 06:03] LABS: ANION GAP 23.9 mmol/L (8-16); BILIRUBIN - TOTAL 0.75 mg/dL (0.2-1.3); CALCIUM 8.6 mg/dL (8.5-10.1); CARBON DIOXIDE 21.6 mmol/L (21.0-32.0); MAGNESIUM - SERUM 2.6 mg/dL (1.8-2.4); POTASSIUM - SERUM 4.5 mmol/L (3.5-5.1); PROTEIN - SERUM 6.4 g/dL (6.4-8.2)
[2018-08-30 06:04] LABS: ALBUMIN 3.9 g/dL (3.4-5.0); CREATININE - SERUM 4.6 mg/dL (0.6-1.3); PHOSPHOROUS 6.6 mg/dL (2.5-4.9)
--- NOTE | 2018-08-30 07:15 | NUR ---
Abdias SOTO RN NOTIFIED DEBRA HAYES RIVET HAMMER MACHINE OPERATOR FOR DR. HADELY OF LAB VALUES AND EVENING EVENTS
--- NOTE | 2018-08-30 07:42 | NUR ---
NOAH GATES APN ON UNIT, ORDERS REC'D FROM DR. HADLEY TO SET UP FOR DIALYSIS, INFORMED DR. HAWKINS TO PLACE DIALYSIS CATHETER, DR. MATHIAS NOTIFIED, NO FURTHER ORDERS AT THIS TIME.
--- NOTE | 2018-08-30 11:31 | NUR ---
714-RECIEVED PER FLOW SHEET-DR HADLEY PG'D FOR UPDATE FROM PREVIOUS SHIFT PT RESTLESS-ALEJO 5-DIPRIVAN INCREASED TO 13 724-RETURN CALL FROM Nacho GATES BAG TURNER-FOR RENAL SERVICES-STATUS REPORT GIVEN-REVIEWED PRIOR SHIFT EVENTS- 729-RETURN CALL WITH DIRECTION FOR TRIALYSIS CATH PLACEMENT-AND ARIEL HEMODIALYSIS-DR MATHIAS UPDATED WITH SAME EVENTS- CONTACTED VIA TELEPHONE FOR UPDATE STATUS AND NEED FOR HEMODIALYSIS AND TRIALYSIS CATH PLACEMENT DR HAWKINS NOTIFIED BY DR HADLEY FOR TRIALYSIS PLACEMENT 814- AT BEDSIDE-SPOKE WITH RENAL NURSE PRACTITIONER REGARDING PLAN OF CARE-SPOKE WITH DR HAWKINS REGARDING PROCEDURE FOR DIALYSIS CATHETER AT THIS TIME-CONSENT OBTAINED 899-TRIALYSIS PLACEMENT L JUGULAR WITHOUT DIFFICULTY DIPRIVAN TITIRATED TO [address] HAWKINS DIRECTION FOR ALEJO OF 1-2-FOR TRIALYSIS PLACEMENT -PORT CXR DONE 929- REMAINS AT BEDSIDE-ALEJO 2-DIPRIVAN AT 35MCG-DIALYSIS INA SERVICES AT [facility]- SPOKE WITH DIALYSIS NURSE REGARDING COURSE OF TREATMENT-RISKS AND BENEFITS 1000-DIALYSIS IN PROGRESS -NURSE AT BEDSIDE-PT TOLERATING WELL
--- NOTE | 2018-08-30 18:11 | NUR ---
1215-DIALYSIS COMPLETED-DR MATHIAS IN UNIT-TITRATION WITH GOAL OFF OF NEOSYNEPHRINE GTT STARTED- 1230-DR VANN AT BEDSIDE-NO FURTHER ORDERS AT THIS TIME-WITH ROTATION OF BED PT TURNED TO R SIDE 1330-FSBS 84-INSULIN GTT TURNED OFF 1350-ABG DRAWN AND RESULT SENT TO DR MATHIAS-NO FURTHER ORDER RECIEVED -TITIRATION OF XAVIER GTT CONT AND TOLERATED WELL 1600-FAMILY AT BEDSIDE AND QUESTION ADDRESSED-INFORMED OF IMPROVED BP AND TITRATION OFF OF NEOSYNEPHRINE GTT-TOLERATING 1810-NEOSYNEPHRINE GTT 0.25-ABP 103/20-35-[id number] AT SAME
--- NOTE | 2018-08-30 19:10 | NUR ---
INFORMED BY Abdias SOTO DAY SHIFT RN TO WEAN OFF XAVIER-SYNEPHRINE AND TO KEEP LEVOPED AT SET RATE OF 0.2 MCG/KG/MIN OR 36.8 ML/HR PER DR. MATHIAS'S ORDERS.
--- NOTE | 2018-08-30 19:12 | NUR ---
REPORT RECEIVED, SHIFT ASSESSMENT COMPLETED PER FLOW SHEET. ON VENT VIA ETT. OGT TO LIWS, PLACEMENT VERIFIED VIA AUSCULTATION. RT IJ CVL PATENT, SWAN YUKO LOCKED AT APPROXIMATELY [address] TO 20 CM SUCTION, NO AIR LEAK, X1 LT SUBSTERNAL CT TO BERTHA DRAIN COMPRESSED. WILDE CATHETER TO GRAVITY SECURED. DAVON HOSE AND SCD'S ON. RT RADIAL HELGA, CVP, AND PA PRESSURE LINES LEVELED AND ZEROED WITH GOOD WAVEFORM. SEE FLOW SHEET FOR COMPLETE ASSESSMENT. PATIENT AROUSES TO DEEP STIMULI, DIPRIVAN DECREASED TO 30 MCG/KG/MIN. WILL CONTINUE TO MONITOR.
--- NOTE | 2018-08-30 21:11 | NUR ---
SCHEDULED MEDS GIVEN, SEE EMAR FOR DETAILS. WILL CONTINUE TO MONITOR.
--- NOTE | 2018-08-30 23:00 | NUR ---
REASSESSMENT COMPLETED PER FLOW SHEET, SEE FOR DETAILS. NO ACUTE DISTRESS NOTED. REPOSITIONED IN BED. WILL CONTINUE TO MONITOR.
[2018-08-31] VITALS (93 sets, daily range): BP systolic 99–134; BP diastolic 41–54
--- NOTE | 2018-08-31 01:00 | NUR ---
REPOSTIONED IN BED, ORAL CARE PROVIDED. NO ACUTE CHANGES NOTED. WILL CONTINUE TO MONITOR.
--- NOTE | 2018-08-31 03:00 | NUR ---
REASSESSMENT COMPLETED PER FLOW SHEET, SEE EMAR FOR DETAILS. NO ACUTE DISTRESS NOTED. REPOSITIONED IN BED. ORAL CARE PROVIDED. COMPLETE BED BATH GIVEN. WILDE CARE PROVIDED. WILL CONTINUE TO MONITOR.
--- NOTE | 2018-08-31 04:20 | NUR ---
CALLED DR. HADLEY REGARDING ABG RESULTS, WILL WAIT FOR CALL BACK.
--- NOTE | 2018-08-31 04:22 | NUR ---
DR. HADLEY RETURNED CALL, UPDATE GIVEN ON PATIENT'S CURRENT STATUS. VS, IV DRIPS, AND AGB RESULTS REVIEWED, INFORMED HIM OF PROTOCOL TO TREAT BASE EXCESS, PER HIS ORDERS OK TO GIVE 2 AMPS OF BICARB.
--- NOTE | 2018-08-31 05:00 | NUR ---
NO ACUTE CHANGES NOTED, WILL CONTINUE TO MONITOR.
[2018-08-31 06:17] LABS: BASOPHILS 0.1 % (0-2); EOSINOPHILS 0 % (0-7); HEMATOCRIT 28.9 % (42.0-54.0); HEMOGLOBIN 9.6 g/dL (13.5-17.5); IMMATURE GRANULOCYTES 0.6 % (0-5); LYMPHOCYTES 3.4 % (15-50); MCH 29.4 pg (26.0-34.0); MCHC 33.2 g/dL (31.0-37.0); MCV 88.4 fL (80.0-100.0); MONOCYTES 6.4 % (2-11); NEUTROPHILS 89.5 % (40-80); PLATELET COUNT 110 10x3/uL (130-400); RBC 3.27 10x6/uL (4.20-6.10); RDW 16.3 % (11.5-14.5); WBC 17.7 10x3/uL (4.8-10.8)
[2018-08-31 06:29] LABS: ANION GAP 23.1 mmol/L (8-16); BILIRUBIN - TOTAL 0.75 mg/dL (0.2-1.3); CALCIUM 8.6 mg/dL (8.5-10.1); CARBON DIOXIDE 22.8 mmol/L (21.0-32.0); CREATININE - SERUM 4.3 mg/dL (0.6-1.3); MAGNESIUM - SERUM 2.3 mg/dL (1.8-2.4); PHOSPHOROUS 7.3 mg/dL (2.5-4.9); POTASSIUM - SERUM 4.9 mmol/L (3.5-5.1)
--- NOTE | 2018-08-31 07:00 | NUR ---
REPORT RECEIVED FROM THE OFF GOING RN. SEE ASSESSMENT IN THE PTS FLOW SHEET. PT SEDATED AND ON THE VENTILATOR. 7.5 ETT NOTED 27 AT THE LIP. SEE RT FOR VENT SETTINGS. RIGHT IJ SWAN-YUKO NOTED ABOUT 49 CM. DRESSING C/D/I. LEFT IJ TRIALYSIS CATHETER NOTED. DRESSING C/D/I. MIDLINE CHEST INCISION DRESSING C/DI. SUBSTERNAL DRESSING C/D/I NOTED WITH A L BERTHA DRAIN COMPRESSED AND 2 CT'S LABLED A & P. A&P CT CONNECTED TO 20 SUCTION WITH NO AIR LEAK. SEROUSANGIOUS DRAINAGED NOTED. . R RADIAL HELGA NOTED DRESSING C/D/I. GOOD WAVE FORM. WRIST PROTECTOR ON. CAP REFILL <3SECONDS. FC NOTED. ANURIA NOTED. MD AWARE. PT EXTRIMITES +2 EDEMA. SCROTAL EDEMA NOTED. VSS AT THIS TIME. WILL CONT POC.
--- NOTE | 2018-08-31 09:00 | NUR ---
DR HADLEY AT THE PTS BEDSIDE. PLAN FOR DIALYSIS PER ORDERS. HOLD ALLOPURINLOL.
--- NOTE | 2018-08-31 09:29 | NUR ---
NUTRITION F/U CHART REVIEWED. PT REMAINS SEDATED ON VENT. HD STARTED. IF TUBE FEEDS STARTED, RECOMMEND NEPRO WITH CURRENT GOAL RATE 40 CC/HR. RD FOLLOWING
--- NOTE | 2018-08-31 09:50 | TEE ---
PATIENT:MALINDA FAN JR MEDICAL RECORD: [id number] LOCATION:[place] [address] AGE OF PATIENT: 82 ADMISSION DATE: 08/27/18 SEX: M REFERRING PHYSICIAN: INTERPRETING PHYSICIAN: GEORGINA CHENEY MD TRANSESOPHAGEAL ECHOCARDIOGRAM Date: 08/28/18 SARAH CHARGE INDICATIONS: PREMEDICATIONS: PATIENT'S RESPONSE PROCEDURE DOPPLER MEASUREMENTS: LVIT LA 5.0 PA 212 RA LVOT 140 RVOT 161 Asc. Ao 432 AV Gradient Peak 74.56 AV Mean 41.17AV Area 0.5 MV Gradient Peak 14.76 MV Mean 6.41 MV Area INTERPRETATION: Doppler: 2-D: COLOR FLOW DOPPLER NORMAL SALINE STUDY: MISCELLANOUS: DIAGNOSIS: PLAN: Manufacturing Management Associate:David Lozoya Physician/Internist: Nida GARCIA COMMENTS: DATE OF SERVICE: 08/28/2018 PROCEDURE: Transesophageal echo evaluation of valvular structures during aortic valve replacement and bypass surgery. FINDINGS: 1. Left ventricular chamber size is within normal limits. Left ventricular systolic function is normal. Overall ejection fraction estimated at 55% to 60%. 2. Left atrium, right atrium, and right ventricle chamber sizes are mildly TRANSESOPHAGEAL ECHOCARDIOGRAM REPORT [id number] MALINDA FAN dilated. 3. Valvular structures: Aortic valve demonstrates severe aortic stenosis; however, this is not a new finding. The patient is scheduled for aortic valve replacement. The remaining valvular structures have normal structure and motion. 4. Doppler interrogation elsewise reveals mild aortic insufficiency, mild mitral regurgitation, trace tricuspid regurgitation, no other valvular insufficiency or stenosis. 5. No evidence of pericardial effusion or left ventricular thrombus. TRANSINT:[id number] Voice Confirmation ID: [id number] DOCUMENT ID: [id number] at 0950 CC: [id number] DICTATION DATE: 08/29/18 1035 ABSEILING INSTRUCTOR: 08/29/18 2315 ADM IN [place] [id number] [place] [address]
--- NOTE | 2018-08-31 11:00 | NUR ---
ASSUMED CARE OF PATIENT. PT INTUBATED AND SEDATED. SEE FLOWSHEETS FOR FINDINGS.
--- NOTE | 2018-08-31 14:55 | NUR ---
RIGHT RADIAL ART LINE DRESSING REMOVED. SITE CLEANED WITH CHG SWAB. BIOPATCH PLACED AND NEW STABILIZING DRESSING APPLIED. NEW WRIST PROTECTOR PLACED DUE TO SATURATION OF PREVIOUS ONE. WHEN REMOVING PROTECTOR A SKIN TEAR WAS NOTED TO PT ANTERIOR FOREARM. SITE GENTLY SWABBED WITH GAUZE TO ELIMINATE MOISTURE AND A MEPILEX DRESSING WAS PLACED FOR PROTECTION BEFORE NEW WRIST STABILIZER PLACED.
--- NOTE | 2018-08-31 15:07 | NUR ---
DR MATHIAS BY TO SEE PATIENT. ASKS FOR LEVOPHED TO BE WEANED TONIGHT. PT ABOUT TO HAVE DIALYSIS AT THIS TIME. VSS.
--- NOTE | 2018-08-31 16:07 | NUR ---
AT BEDSIDE TO SEE PATIENT. VISITED FOR A FEW MOMENTS AND SAID WOULD BE BACK LATER. DIALYSIS NURSE AT BEDSIDE READYING PATIENT FOR TREATMENT.
--- NOTE | 2018-08-31 18:20 | NUR ---
DIALYSIS TREATMENT ON PROGRESS. VSS. HAVE WEANED LEVOPHED TO 0.1MCG/KG/MIN EVEN WHILE ON DIALYSIS. PT INSULIN GTT IS ON HOLD PER PROTOCOL.
--- NOTE | 2018-08-31 19:08 | NUR ---
REPORT RECEIVED, SHIFT ASSESSMENT COMPLETED PER FLOW SHEET. ON VENT VIA ETT. RECEIVING DIALYSIS AT THIS TIME. PPP. WILDE CATHETER TO GRAVITY SECURED. OGT PLACEMENT VERIFIED VIA AUSCULTATION. SEE FLOW SHEET FOR COMPLETE ASSESSMENT. WILL CONTINUE TO MONITOR.
--- NOTE | 2018-08-31 21:11 | NUR ---
SCHEDULED MEDS GIVEN. ORAL CARE PROVIDED, REPOSITIONED IN BED. TUBE FEEDINGS INITIATED AT 10 ML/HR AND HOB ELEVATED TO [address] MONTEZ'S ORDERS[address] TOLERATED ALL WELL. WILL CONTINUE TO MONITOR.
--- NOTE | 2018-08-31 23:00 | NUR ---
REASSESSMENT COMPLETED PER FLOW SHEET, SEE FOR DETAILS. NO ACUTE CHANGES NOTED. ORAL CARE PROVIDED, REPOSITIONED IN BED, WILL CONTINUE TO MONITOR.
[2018-09-01] VITALS (53 sets, daily range): BP systolic 88–137; BP diastolic 38–64
--- NOTE | 2018-09-01 01:00 | NUR ---
REPOSITIONED IN BED, ORAL CARE PROVIDED, TOLERATED WELL. WILL CONTINUE TO MONITOR.
--- NOTE | 2018-09-01 02:25 | NUR ---
BP DOWN TO 88/38, LEVOPHED TURNED ON TO 5 MCG/MIN OR 9.4 ML/HR, RT AT BEDSIDE OBTAINING ABG.
--- NOTE | 2018-09-01 02:30 | NUR ---
BP 99/41. MAP 60. ABG RESULTS REVIEWED, NOTHING TO TREAT AT THIS TIME PER PROTOCOL. AM LABS DRAWN AT THIS TIME.
--- NOTE | 2018-09-01 03:00 | NUR ---
120 ML TUBE FEEDING RESIDUAL, WILL CONTINUE WITH TUBE FEEDINGS.
[2018-09-01 03:01] LABS: BASOPHILS 0.2 % (0-2); EOSINOPHILS 0 % (0-7); HEMATOCRIT 26.6 % (42.0-54.0); HEMOGLOBIN 8.9 g/dL (13.5-17.5); IMMATURE GRANULOCYTES 0.6 % (0-5); LYMPHOCYTES 6.1 % (15-50); MCH 29.3 pg (26.0-34.0); MCHC 33.5 g/dL (31.0-37.0); MCV 87.5 fL (80.0-100.0); MEAN PLATELET VOLUME 10.5 fL (7.4-10.4); MONOCYTES 6.1 % (2-11); PLATELET COUNT 90 10x3/uL (130-400); RBC 3.04 10x6/uL (4.20-6.10); RDW 15.9 % (11.5-14.5)
[2018-09-01 03:12] LABS: APTT 35.1 SECONDS (22.8-39.4); INR 1.34 (0.85-1.17); PROTIME 16.1 SECONDS (11.6-15.0)
[2018-09-01 03:15] LABS: ALBUMIN 2.6 g/dL (3.4-5.0); ANION GAP 14.6 mmol/L (8-16); BILIRUBIN - TOTAL 0.68 mg/dL (0.2-1.3); CALCIUM 8.6 mg/dL (8.5-10.1); CARBON DIOXIDE 26.7 mmol/L (21.0-32.0); CREATININE - SERUM 3.7 mg/dL (0.6-1.3); POTASSIUM - SERUM 4.3 mmol/L (3.5-5.1); PROTEIN - SERUM 5.6 g/dL (6.4-8.2)
[2018-09-01 03:20] LABS: PLATELET ESTIMATE DECREASED
--- NOTE | 2018-09-01 03:27 | NUR ---
BP UP TO 117'S-120'S, LEVOPHED OFF AT THIS TIME.
--- NOTE | 2018-09-01 04:00 | NUR ---
BP DOWN TO 88/39. MAP 56. CALLED AND SPOKE TO DR. MATHIAS, NEW ORDERS RECEIVED TO TURN LEVOPHED TO 10 ML/HR, 200 ML NS BOLUS, AND 2 UNIT PRBC'S.
--- NOTE | 2018-09-01 04:25 | NUR ---
TYPE AND SCREEN COMPLETED FOR 2 UNIT PRBC'S.
--- NOTE | 2018-09-01 05:19 | NUR ---
SPOKE TO NANDINI FROM LABORATORY, 2 UNITS PRBC'S READY.
--- NOTE | 2018-09-01 05:20 | NUR ---
SPOKE TO CHARGE NURSE Javier MICHAEL, HE WILL BE BRINGING PRBC TO UNIT. WILL WAIT FOR AVAILABILITY TO ADMINISTER.
--- NOTE | 2018-09-01 05:30 | NUR ---
FIRST UNIT OF PRBC INFUSING, WILL CONTINUE TO MONITOR.
--- NOTE | 2018-09-01 06:00 | NUR ---
SECOND UNIT OF PRBC DONE INFUSING, BP 134/55, LEVOPHED OFF ORDERED BY DR. MATHIAS.
--- NOTE | 2018-09-01 08:12 | NUR ---
0700 PT RECIEVED SEDATED ON VENT ETT 7.5 AT 27 AT THE LIPLINE, VENT SIMV RATE 14 TV 650 PS 15 FIO2 55 PEEP 5, OGT SECURED WITH NEPRO 10ML/HR, L IJ TRIALYSIS CATH DRESSING CDI, R IJ CORDIS DRESSING CDI, SWAN YUKO CATH LOCKED AT 49CM, PLASMALYTE 20ML/HR, PROPOFOL 14.7ML/HR OR 25MCG, MIDSTERNAL AND SUBSTERNAL DRESSINGS CDI WITH SUBSTERNAL CTX2 TO 20CM SUCTION NO AIR LEAK, BLOODY DRAINAGE, SUBSTERNAL BERTHA COMPRESSED WITH BLOODY DRAINAGE, TPM WIRE COILED UNDER DRESSING, R RADIAL A LINE WRIST PROTECTOR IN PLACE, GOOD WAVEFORM, ALL PRESSURE LINES ZEROED, SKIN TEAR DRESSING CDI, RLE HARVEST SITES CDI, CRITICORE WILDE WITH SCANT/NO URINE OUTPUT, TEDS AND SCDS IN PLACE, GENERALIZED EDEMA NOTED, PPM PACING HR 70, REPOSITIONED, WILL CONTINUE TO MONITOR 1:1
--- NOTE | 2018-09-01 09:42 | NUR ---
CT REMOVED BY DR YOLANDA ECHEVARRIA, CALLED SURGERY FOR SWAN YUKO CAP, ISABELLA STATED THEY WERE WAITING ON THE HEART NURSE WHO KNOWS WHERE THEY ARE TO BRING THEM, DR YOLANDA ECHEVARRIA AWARE
--- NOTE | 2018-09-01 09:46 | NUR ---
NUTRITION F/U CHART REVIEWED, PT REMAINS SEDATED ON VENT. DIPRIVAN AT 14 CC/HR PROVIDING 370 KCAL PER DAY. NEPRO TUBE FEEDS STARTED AT 10 CC/HR WITH CURRENT GOAL RATE 40 CC/HR. RD FOLLOWING
[2018-09-01 10:15] LABS: HEPATITIS C ANTIBODY <0.1 S/CO RAT (0.0-0.9)
--- NOTE | 2018-09-01 10:30 | NUR ---
DR VANN IN UNIT, ORDERS TO NOT INCREASE TUBE FEEDS FOR 12 HOURS DEPENDING ON RESIDUALS AND FOR CONSENTS FOR BRONCH, IN WAITING ROOM, SPOKE WITH DR VANN AND SIGNED CONSENT FOR BRONCH
--- NOTE | 2018-09-01 10:49 | NUR ---
BRONCH COMPLETE, DIALYSIS NURSE INITIATING DIALYSIS
--- NOTE | 2018-09-01 11:53 | OP ---
PATIENT NAME: MALINDA FAN JR MEDICAL RECORD: [id number] :36 LOCATION:[facility] D.CV[facility] ADMISSION DATE:08/27/18 SURGEON: DRU BEARD MD DATE OF OPERATION: 08/28/2018 SURGEON: Dru Beard MD WAREHOUSE ASSOCIATE DRIVER: ЕЛЕНА Jovel MD and Enoch Garcia. OPERATION PERFORMED: 1. Aortic valve replacement 21 mm pericardial bioprosthesis. 2. Coronary artery bypass graft times 4 (left internal mammary to LAD, reverse saphenous vein graft from aorta to first diagonal, aorta to ramus intermedius, aorta to posterolateral branch of right coronary artery). 3. Endoscopic saphenous vein harvest. 4. Bilateral pulmonary vein radiofrequency ablation. 5. Application of AtriClip left atrial appendage occlusion device. PREOPERATIVE DIAGNOSES: Coronary artery disease, chronic kidney disease, aortic stenosis, atrial fibrillation with permanent pacemaker. POSTOPERATIVE DIAGNOSES: Coronary artery disease, chronic kidney disease, aortic stenosis, atrial fibrillation with permanent pacemaker, pulmonary hypertension. ANESTHESIA: General endotracheal anesthesia. ESTIMATED BLOOD LOSS: Total cardiopulmonary bypass with Cell Saver retransfusion and 1 packed red blood cell, 1 platelet, 2 FFP. COMPLICATIONS: None. SPECIMENS: Aortic valve leaflets. CONDITION: Stable. DISPOSITION: CV ICU. OPERATIVE FINDINGS: 1. Transesophageal echocardiography confirmed severe aortic stenosis with significant LVH and 1+ MR, no perivalvular leak after separation from cardiopulmonary bypass. 2. Good quality greater saphenous vein harvested endoscopically in right lower extremity. 3. Good quality left internal mammary artery to LAD, was an intramyocardial 2.0-mm vessel. 4. The first diagonal is 1.5 mm vessel with severe disease. 5. Ramus intermedius is 1.5 mm vessel. The more distal obtuse marginals were small and not grafted. 6. Posterior descending artery calcified throughout and not bypassable. The larger vessel in the inferior wall was the posterolateral branch of the right coronary artery, which was a 1.75 mm vessel with severe proximal disease, the right coronary artery was calcified throughout. 7. Bilateral pulmonary vein radiofrequency ablation using the AtriCure system. 8. Application of 45 mm AtriClip. OPERATIVE REPORT [id number] MALINDA FAN JR 9. Severely calcified aortic valve leaflets with totally fused noncoronary cusp and severe calcification below and up to the sinotubular junction with some irregular calcification in the ascending aorta. 10. Intraoperative hyperkalemia treated with glucose and insulin. OPERATIVE INDICATION: Aortic stenosis, coronary artery disease. OPERATIVE SUMMARY IN DETAIL: The patient was brought to the operating suite. General anesthesia was obtained with the patient prepped and draped. Greater saphenous vein was harvested utilizing endoscopic technique. Side branches were divided with electrocautery. Vessel was ligated proximal and distal removed. Side branches were oversewn. Dr. Jovel was the medical assistant dermatology surgeon for this portion of the case. He harvested the vein, oversewed the side branches and thin walled areas. The use of medical assistant dermatology surgeon saved approximately 30 minutes of general anesthetic time. Median sternotomy incision was made. Subcutaneous tissue was divided with electrocautery. The sternum was divided with a saw. Left hemisternum was elevated. Left pleural cavity was entered. Left internal mammary vein was taken down as a pedicle graft. Sternal retractor was placed. Pericardium was opened. Heparin was given. Aorta was cannulated. Dual stage venous cannula was inserted. The patient was placed in cardiopulmonary bypass. Sites for distal anastomoses were elected. Retrograde cardioplegia cannula was inserted. Antegrade cardioplegia was given through a needle after placing the cross clamp and the retrograde cardioplegia cannula was given and retrograde cardioplegia cannula was repeated at 20 minute intervals during the cross-clamp time. Both pulmonary veins were isolated and radiofrequency ablation was performed. Left atrial appendage occlusion device was placed. Distal anastomoses were performed in standard technique. Aortotomy was performed. Aortic valve was debrided. The valve was sized to the appropriate size. The valve sutures were placed ventricular to aortic side with a pledgeted suture and then through the valve sewing ring valve carefully lowered in place. Sutures tied, inspected the valve. No subvalvular occlusion, no perivalvular leak. Aortotomy was closed. The patient was rewarmed. Proximal anastomoses were performed. Aortic root was de-aired. Left ventricular apex was de-aired. Cross clamp removed. The patient fully rewarmed, weaned from cardiopulmonary bypass and was stable. Proximal and distal anastomotic sites were inspected for bleeding. Thorough irrigation was undertaken. Protamine was given. Drains were placed in the mediastinum and left pleural cavity. Atrial pacing wires were placed. The patient has an indwelling pacemaker. There was evidence of coagulopathy. Platelets and FFP were given. Pericardial fat was loosely reapproximated. Left chest was evacuated and irrigated. The internal mammary harvest site was inspected for bleeding. Sternum was closed with wires and sternal plates. Fascia was closed. Subcutaneous tissue was closed. Skin was closed. Dermabond was placed. The needle and sponge counts were reported as correct. The patient was taken to the ICU in stable condition. TRANSINT:[id number] Voice Confirmation ID: [id number] DOCUMENT ID: [id number] OPERATIVE REPORT [id number] MALINDA FAN JR, DANIEL W MD at 1153 CC: AMANDO HORNER M.D., GARETH WEIR MD and [id number] DICTATION DATE: 08/28/18 1521 SENIOR QA TESTER: 08/28/18 1622 ADM IN [place] [id number] [place] [address]
--- NOTE | 2018-09-01 14:00 | NUR ---
PT IN AFIB, DR BEARD/YOLANDA REVELES
--- NOTE | 2018-09-01 15:42 | NUR ---
1500 SWAN DCD TIP INTACT 1530 BATH GIVEN, LINENS CHANGED, CVL AND COCCYX DRESSING CHANGED
--- NOTE | 2018-09-01 16:02 | NUR ---
RESIDUAL 15ML OF TUBE FEED, PER DR VANN WILL INCREASE IN 6 MORE HOURS
--- NOTE | 2018-09-01 16:39 | NUR ---
NOTIFIED DR BEARD OF USING NITRO FOR BP, ORDERS TO STOP NITRO, CHANGE PARAMETERS TO 90-140 SYSTOLIC AND 2.5 LOPRESSOR IV Q6 (AND NOW) HOLDING IF SYSTOLIC < 100
--- NOTE | 2018-09-01 19:04 | NUR ---
REPORT RECEIVED, SHIFT ASSESSMENT COMPLETED PER FLOW SHEET. RT IJ CVL PATENT, INFUSING NS AT 20 ML/HR AND DIPRIVAN AT 14.7 ML/HR. WILDE CATHETER TO GRAVITY SECURED. OGT PLACEMENT VERIFIED VIA AUSCULTATION. SEE FLOW HSEET FOR COMPLETE ASSESSMENT. WILL CONTINUE TO MONITOR.
--- NOTE | 2018-09-01 20:18 | NUR ---
AND GRANDSON AT BEDSIDE, UPDATE GIVEN, QUESTIONS ANSWERED. PATIENT CALM, SEDATED ON VENT, WILL CONTINUE TO MONITOR.
--- NOTE | 2018-09-01 22:02 | NUR ---
TUBE FEEDING RESIDUAL 0 ML, RATE INCREASED TO 20 ML/HR. WILL CONTINUE TO MONITOR.
--- NOTE | 2018-09-01 23:00 | NUR ---
REASSESSMENT COMPLETED PER FLOW SHEET, SEE FOR DETAILS. NO ACUTE CHANGES NOTED. WILL CONTINUE TO MONITOR.
[2018-09-02] VITALS (30 sets, daily range): BP systolic 94–134; BP diastolic 35–64
--- NOTE | 2018-09-02 01:00 | NUR ---
SEDATED ON VENT, NO ACUTE CHANGES NOTED. WILL CONTINUE TO MONITOR.
--- NOTE | 2018-09-02 03:00 | NUR ---
REASSESSMENT COMPLETED PER FLOW SHEET, SEE FOR DETAILS. NO ACUTE CHANGES NOTED. WILL CONTINUE TO MONITOR.
--- NOTE | 2018-09-02 04:00 | NUR ---
TUBE FEEDING RESIDUAL 0 ML, WILL CONTINUE WITH TUBE FEEDINGS.
--- NOTE | 2018-09-02 05:00 | NUR ---
COMPLETE BED BATH GIVEN, COMPLETE BED LINEN CHANGE PROVIDED. WILDE CARE PROVIDED. ORAL CARE PROVIDED. TOLERATED WELL. WILL CONTINUE TO MONITOR.
[2018-09-02 06:18] LABS: ALBUMIN 2.5 g/dL (3.4-5.0); BILIRUBIN - TOTAL 0.69 mg/dL (0.2-1.3); CALCIUM 8.7 mg/dL (8.5-10.1); CARBON DIOXIDE 24.3 mmol/L (21.0-32.0); CREATININE - SERUM 3.7 mg/dL (0.6-1.3); MAGNESIUM - SERUM 2.3 mg/dL (1.8-2.4); PHOSPHOROUS 5.6 mg/dL (2.5-4.9); POTASSIUM - SERUM 4.3 mmol/L (3.5-5.1)
[2018-09-02 06:54] LABS: BASOPHILS 0.2 % (0-2); EOSINOPHILS 0 % (0-7); HEMOGLOBIN 10.4 g/dL (13.5-17.5); IMMATURE GRANULOCYTES 1.6 % (0-5); LYMPHOCYTES 6.3 % (15-50); MCH 29.6 pg (26.0-34.0); MCHC 33.5 g/dL (31.0-37.0); MCV 88.3 fL (80.0-100.0); MEAN PLATELET VOLUME 10.5 fL (7.4-10.4); MONOCYTES 7.2 % (2-11); NEUTROPHILS 84.7 % (40-80); PLATELET COUNT 77 10x3/uL (130-400); RBC 3.51 10x6/uL (4.20-6.10); WBC 10.6 10x3/uL (4.8-10.8)
--- NOTE | 2018-09-02 07:24 | NUR ---
RECIEVED IN BED. VSS. R RADIAL A LINE DRESSING CDI. R IJ CENTRAL LINE CDI, L IJ TRIALYSIS CATHETER DRESSING CDI. 50% FIO2 ON SIMV VIA ETT 7.5. OGT SECURE, NEPHRO @ 20. NS @ 20, PROPOPHOL @ 14.7. WRIST RESTRAINTS IN PLACE. MIDSTERNAL AND SUBSTERNAL DRESSINGS CDI, BERTHA DRAIN COMPRESSED. R LEG HARVEST SITE DRESSING CDI, SCD'S AND TEDS IN PLACE. CRITICORE WILDE IN PLACE, OLIGURIC WITH CONCENTRATED UOP. WILL CONTINUE TO MONITOR 1:1.
--- NOTE | 2018-09-02 08:24 | NUR ---
DR BEARD IN UNIT NOTIFIED OF LOW PLATELETS, ORDERS TO CARLOS CRITICORE ANDRY AND CHANGE TO NEW CARLOS WILDE A LINE, CONSULT ABRIL FOR HIT, PAGED ABRIL, ORDERS FOR LABS, LAB AWARE.
--- NOTE | 2018-09-02 09:16 | NUR ---
RESIDUAL ON TF 5ML
[2018-09-02 09:32] LABS: INR 1.24 (0.85-1.17); PROTIME 15.1 SECONDS (11.6-15.0)
--- NOTE | 2018-09-02 09:34 | NUR ---
NUTRITION F//U PT REMAINS SEDATED ON VENT. NEPRO TUBE FEEDS AT 20 CC/HR, MINIMAL RESIDUALS. DIPRIVAN AT 14 CC/HR. WILL CONTINUE TO MONITOR PT PROGRESS. RD FOLLOWING
--- NOTE | 2018-09-02 09:43 | NUR ---
A LINE REMOVED PER PROTOCOL, CRITICORE WILDE REMOVED AND REPLACED [id number] WILDE VIA STERILE TECHNIQUE, LABS DRAWN AND TUBES SENT TO LAB, DR WEIR IN ROOM AND SPEAKING TO PT AND GRANDSON ABOUT PTS POSSIBLE OUTCOMES
--- NOTE | 2018-09-02 10:02 | NUR ---
LAB USED BLOOD FROM THIS AM FOR INITIAL PT/PTT/INR/FIBRINOGEN, CALLED AND SPOKE WITH JUNE TO NOTIFY THAT THE ORDER WAS FOR NOW NOT THIS AMS LABS, PER MARGARET NEW ORDERS PUT IN TO CLARIFY THAT IS WAS FOR NOW.
[2018-09-02 10:12] LABS: APTT 24.8 SECONDS (22.8-39.4); INR 1.24 (0.85-1.17); PROTIME 15.1 SECONDS (11.6-15.0)
--- NOTE | 2018-09-02 10:54 | NUR ---
L IJ TRIALYSIS DRESSING CHANGED
--- NOTE | 2018-09-02 11:52 | NUR ---
CALLED DR MCHUGH OFFICE AND SPOKE WITH ALEKSANDAR TO UPDATE ON PT POSSIBLE HIT AND IF DR BONNER WILL BE FOLLOWING ALONG THE LAST NOTE WASFROM DR SHELTON 08/19, ALEKSANDAR IN OFFICE STATED THAT HE WAS IN THEIR OTHER CLINIC TODAY BUT COULD ROUND THIS AFTERNOON, NOTIFIED WALE MCMAHAN NURSE AND OKAYED TO DISCUSS ARGATROBAN MANAGEMENT WITH DR BONNER THEN NOTIFY DR SAMUELS.
--- NOTE | 2018-09-02 12:43 | NUR ---
PER DR BEARD REQUEST ASKED DR VANN IF OKAY TO WEAN SEDATION FOR SEDATION VACATION, PER DR VANN WILL WEAN SEDATION, ALLOW PT TO AWAKEN SLIGHTLY AND INCREASE SEDATION BACK
[2018-09-02 12:46] LABS: PROTIME 50.5 SECONDS (11.6-15.0)
[2018-09-02 12:47] LABS: INR 5.69 (0.85-1.17)
--- NOTE | 2018-09-02 12:56 | NUR ---
CRITICAL PT/INR/PTT CALLED TO WALE MCMAHAN NURSE, DR VANN AND DR SAMUELS, PER PROTOCOL OKAYED TO HOLD FOR 2 HOURS, RESTART AT 1.5MCG AND REDRAW PTT TWO HOURS AFTER, WILL NOTIFY DR BONNER ON ROUNDS HIS CLINIC REQUESTED.
--- NOTE | 2018-09-02 14:28 | NUR ---
BATH DONE, PARTIAL LINEN CHANGE, SUBSTERNAL DRESSING CHANGED, RUE DRESSING CHANGED, R IJ DRESSING CHANGED, DIALYSIS NURSE IN ROOM SETTING UP FOR DIALYSIS
--- NOTE | 2018-09-02 14:52 | NUR ---
ARGATROBAN RESTARTED AT 1.5MCG DISCUSSED WITH DR SAMUELS
--- NOTE | 2018-09-02 14:56 | NUR ---
WILL RETIME MERREM AND GIVE AFTER DIALYSIS
--- NOTE | 2018-09-02 15:00 | NUR ---
NO TUBE FEED RESIDUAL, FEEDINGS INCREASED TO 30ML
--- NOTE | 2018-09-02 16:02 | NUR ---
DR BEARD IN ROOM ORDERS TO CHANGE INSULIN PROTOCOL TO Q6 REGULAR INSULIN SQ, DC NS, ASK DR HADLEY ABOUT MERREM DOSING, PAGED AND RECIEVED CALL FROM DR HADLEY WITH ORDERS TO CHANGE DOSE TO 500MG Q24H, DR BEARD AWARE
--- NOTE | 2018-09-02 16:38 | NUR ---
PER DR BEARD NO ABGS AFTER DIALYSIS AND "NO ARTERY PUNCTURE" RT AND DR VANN NOTIFIED
--- NOTE | 2018-09-02 16:45 | NUR ---
1700 PT/INR/PTT DRAWN AND TUBED TO LAB, WILL GIVE LOPRESSOR AFTER DIALYSIS IF BP WITHIN PARAMETERS
[2018-09-02 17:14] LABS: APTT 64.4 SECONDS (22.8-39.4); INR 2.72 (0.85-1.17); PROTIME 28.1 SECONDS (11.6-15.0)
--- NOTE | 2018-09-02 17:17 | NUR ---
PAGED DR BONNER ABOUT ARGATROBAN RATE VIA ANSWERING SERVICE
--- NOTE | 2018-09-02 17:22 | NUR ---
RECIEVED CALL FROM DR BONNER, STATED HE NEVER RECIEVED MESSAGE FROM OFFICE, UPDATED ON PT SITUATION, ORDERS, LABS AND NEW PTT, ORDERS TO CONTINUE CURRENT RATE AND RECHECK PTT IN AM
--- NOTE | 2018-09-02 19:00 | NUR ---
REPORT RECEIVED, SHIFT ASSESSMENT COMPLETE SEE FLOW SHEET FOR FURTHER, PT RESTING COMFORTABLY IN BED, SEDATION AND VENT PER ORDERS, ETT SECURED, OGT TO TF PLACEMENT VERIFIED BY AUSCULTATION, TF RESIDUAL 0ML, TF PULMOCARE @30ML/HR, RIGHT IJ CVL AND LEFT IJ TRIALYSIS PATENT, DRSG CHANGED BY DAY SHIFT RN, INCISION SITES C/D/I, Lt SUBSTERNAL BERTHA, WILDE CATH REPLACED BY DAY SHIFT RN 09/02/18 PER ORDERS, WILDE SECURED TO UPPER THIGH, WRIST RESTRAINTS REPOSITIONED SKIN ASSESSED INTACT, EXTREMITIES ELEVATED, SCD AND DAVON HOSE BLE, ORAL AND SKIN CARE COMPLETED, VSS, PACED RHYTHM ON CM, NO S/S OF ACUTE DIOSTRESS, WILL CONTINUE TO MONITOR
--- NOTE | 2018-09-02 20:00 | NUR ---
AND NEPHEW AT BEDSIDE, UPDATE GIVEN, NO FURTHER NEEDS OR QUESTIONS AT THIS TIME
[2018-09-02 20:06] LABS: ACID FAST SMEAR Negative (()); AFB SPECIMEN PROCESSING Concentration (())
--- NOTE | 2018-09-02 23:00 | NUR ---
REASSESSMENT COMPLETE PER FLOW SHEET, NO ACUTE DISTRESS NOTED, PPP AND VSS ORAL AND SKIN CARE COMPLETED, REPOSITIONED FOR COMFORT, BERTHA DRAIN EMPTIED, WILL CONTINUE TO MONITOR
[2018-09-03] VITALS (32 sets, daily range): BP systolic 97–131; BP diastolic 43–66
[2018-09-03 01:47] LABS: HEMATOCRIT 30.3 % (42.0-54.0); HEMOGLOBIN 10.3 g/dL (13.5-17.5); MCH 30.1 pg (26.0-34.0); MCV 88.6 fL (80.0-100.0); MEAN PLATELET VOLUME 10.5 fL (7.4-10.4); RBC 3.42 10x6/uL (4.20-6.10); RDW 15.8 % (11.5-14.5); WBC 12.1 10x3/uL (4.8-10.8)
--- NOTE | 2018-09-03 03:00 | NUR ---
REASSESSMENT PER FLOW SHEET, NO ACUTE CHANGES OR DISTRESS NOTED, PPP AND VSS, REPOSITIONED FOR COMFORT, WILL CONTINUE TO MONITOR
--- NOTE | 2018-09-03 06:00 | NUR ---
CHG BATH WITH COMPLETE LINEN AND GOWN CHANGE, RT IJ CVL AND LT TRIALYSIS CATH DRSG CHANGED DATED AND TIMED, REPOSITIONED PT IN BED FOR COMFORT, LABS DRAWN, PT VSS, NO ACUTE DISTRESS NOTED WILL CONTINUE TO MONITOR
--- NOTE | 2018-09-03 06:45 | NUR ---
PAGED R/T APTT ON MORNING LABS, UPDATE GIVEN, ORDERS RECEIVED RECHECK APTT IN 4 HOURS, HOLD ARGATROBAN PER MAY/ORDERS, NO FURTHER AT THIS TIME
[2018-09-03 06:47] LABS: PLATELET COUNT 82 10x3/uL (130-400)
[2018-09-03 07:09] LABS: APTT 89.8 SECONDS (22.8-39.4); INR 3.59 (0.85-1.17)
--- NOTE | 2018-09-03 07:40 | NUR ---
SHIFT REPORT RECEIVED. PT ON VENT SIMV, R-14, TV 650, PS-15, PEEP 5. ETT SIZE 7.5 27 AT THE LIP MIDLINE. OG TUBE IN PLACE WITH NEPRO AT 30ML/HR. NO RESIDUAL NOTED AT THIS TIME. HAS TRIALYSIS CATH ON LIJ. RIJ CVL WITH PROPOFOL AT 20ML/HR. MIDSTERNAL INCISION WITH DRESSSING C/D/I. SUBSTERNAL DRESSING C/D/I. L BERTHA DRAIN IN PLACE WITH SEROSANGUINOUS DRAINAGE NOTED. WRIST RESTRAINST IN PLACE. DRESSING NOTED TO RIGHT FOREARM. RLE HARVEST SITES PRACTICING DERMATOLOGIST. DAVON HOSE AND SCD IN PLACE. AIR OVERLAY MATTRESS IN PLACE. WILDE CATHETER IN PLACE. NO URINE NOTED AT THIS TIME. PT SEDATED, MOVES HEAD WITH STIMULI. SAFETY MEASURES IN PLACE. SHIFT ASSESSMENT CHARTED IN FLOWSHEET. WILL CONTINUE TO MONITOR CLOSELY.
--- NOTE | 2018-09-03 07:53 | NUR ---
NOTIFIED OF SUBSTERNAL BERTHA DRAIN OUTPUT DURING NIGHT, NO NEW ORDERS RECEIVED
[2018-09-03 08:36] LABS: PLATELET ESTIMATE DECREASED
--- NOTE | 2018-09-03 08:40 | NUR ---
NEPRO INCREASED TO 40ML/HR PER ORDERS.
--- NOTE | 2018-09-03 09:30 | NUR ---
ARGATROBAN PLACED ON HOLD AT 0730 PER ORDERS. ARGATROBAN RE-STARTED AT 1.1MCG/KG/MIN PER ORDERS. WILL RECHECK APTT IN 2 HRS.
--- NOTE | 2018-09-03 09:58 | NUR ---
DIALYSIS NURSE AT BEDSIDE AT THIS TIME.
--- NOTE | 2018-09-03 10:48 | NUR ---
UNABLE TO GIVE LOPRESSOR AT THIS TIME. PT ON DIALYSIS. DR. BEARD IN UNIT.
[2018-09-03 11:18] LABS: HEMATOCRIT 29.7 % (42.0-54.0); MCH 30.2 pg (26.0-34.0); MCHC 33.7 g/dL (31.0-37.0); MCV 89.7 fL (80.0-100.0); RBC 3.31 10x6/uL (4.20-6.10); RDW 15.9 % (11.5-14.5); WBC 12.4 10x3/uL (4.8-10.8)
--- NOTE | 2018-09-03 11:40 | NUR ---
SEDATION DECREASED PER DR. VANN'S ORDERS. DR. VANN ORDERED TO RESTART CPV MONITORING.
[2018-09-03 11:49] LABS: ANISOCYTOSIS OCC; LYMPHOCYTES 11 % (15-50); MONOCYTES 7 % (2-11); NEUTROPHILS 71 % (40-80)
--- NOTE | 2018-09-03 12:28 | NUR ---
OFF DIALYSIS AT THIS TIME. 2L OF FLUID TAKEN OFF DURING DIALYSIS. DAUGHTER AT BEDSIDE. DR. VANN, DR. AAWN, AND DR. BEARD SPOKE WITH DAUGHTER.
--- NOTE | 2018-09-03 15:16 | NUR ---
ARGATROBAN PLACE ON HOLD AT 1315 PER ORDERS. RESTARTED AT THIS TIME AT 0.9MCG/KG/MIN PER ORDERS. WILL RECHECK APTT IN 2 HRS.
--- NOTE | 2018-09-03 15:22 | NUR ---
DECREASED PROPOFOL AT THIS TIME TO 17.7 MCG/KG/MIN. RT AT BEDSIDE.
--- NOTE | 2018-09-03 15:57 | NUR ---
PLACED ON CPAP TRIAL AT THIS TIME BY RT. WILL CONTINUE TO MONITOR.
--- NOTE | 2018-09-03 16:45 | NUR ---
OFF CPAP TRIAL AT THIS TIME. PROPOFOL INCREASED TO 17.7MCG/KG/MIN.
--- NOTE | 2018-09-03 17:34 | NUR ---
DRESSING ON RIJ CVL AND LIJ TRIALYSIS PEELING OFF. CHANGED DRESSING AT THIS TIME. DRESSING WERE PEELING OFF DUE TO FACIAL HAIR NOT ALLOWING THEM TO ADHERE TO THE SKIN. WILL CONTINUE TO MONITOR.
[2018-09-03 18:06] LABS: FUNGUS STAIN Final report (())
--- NOTE | 2018-09-03 20:00 | NUR ---
REPORT RECEIVED, SHIFT ASSESSMENT COMPLETE SEE FLOW SHEET, PT SEDATED ON VENT, SETTINGS PER CHIN/RT, PT MOVES HEAD FROM ONE SIDE TO OTHER WITH MINIMAL STIMULI, ETT/OGT SECURED AUSCULTATED PLACEMENT, TF NEPRO @40ML/HR, NO RESIDUAL NOTED, LT IJ TRIALYSIS CATH , RT IJ CVL INFUSING MEDS PER MAY/ORDERS, BOTH DRSG'S DIFFICULT TO ADHERING TO PT R/T FACIAL HAIR AND PT ORAL SECREATIONS, BOTH DRSG'S CHANGED BY DAY SHIFT RN PRIOR TO SHIFT CHANGE, MIDSTERNAL /SUBSTERNAL DRSGS C/D/I, SUBSTERNAL BERTHA DRAIN INTACTWITH THIN SEROSANG DRAINAGE, EMPTIED AND RECOMPRESSED BERTHA DRAIN, SEE I/O'S FOR FURTHER, ABDOMEN ROUND/DISTENDED WITH HYPOACTIVE BSx4, WILDE CATH TO GRAVITY WITH NO UOP NOTED, SCROTUM ENLARGED AND ELEVATED WITH SLING, CRISS AND WILDE CARE COMPLETE, RLE HARVEST SITE C/D/I COMPACTOR DRIVER, SCD AND DAVON HOSE BLE, RT FA SKIN TEAR WITH DRSG IN PLACE, ON AIR OVERLAY BED, BILAT WRIST RESTRAINTS, ALL PPP, VSS, CVP MONITORING, PACED RHYTHM ON CM, NO ACUTE S/S OF DISTRESS, WILL CONTINUE TO MONITOR
--- NOTE | 2018-09-03 21:00 | NUR ---
AND GRANDSON AT BEDSIDE, UPDATE GIVEN, NO FURTHER AT THIS TIME
--- NOTE | 2018-09-03 23:00 | NUR ---
REASSESSMENT COMPLET SEE FLOW SHEET, NO ACUTE CHANGES SINCE PRIOR ASSESSMENT, NO ACUTE S/S OF DISTRESS NOTED, VSS, PPP, REPOSITIONED IN BED WITH PILLOWS, ORAL CARE AND SUCTIONING COMPLETED, PT CONTINUES WITH NO UOP IN WILDE, WILL CONTINUE WITH POC AND MONITOR
[2018-09-04] VITALS (26 sets, daily range): BP systolic 102–138; BP diastolic 45–66
--- NOTE | 2018-09-04 04:00 | NUR ---
ORERED MORNING ABG'S, INFORMED RT THAT HAS ORDERS FOR NO ARTERIAL STICKS/ABG'S, [facility] PAYROLL BENEFITS CLERK AILEEN Avalos NOTIFIED OF SITUATION AND AILEEN Avalos STATED THAT ABG'S NEED TO BE DRAWN PER ORDERS, I ASKED FOR RT CORTEZ TO WAIT UNTIL MORNING TO DRAW ABG'S SO BOTH AND COULD CONFIRM WHICH ORDER TO FOLLOW, RT CORTEZ STATED HE HAS TO DRAW ABG'S AT 0400, PAYROLL BENEFITS CLERK AMANDA TOLD CORTEZ THAT HE CAN DRAW ABG'S AT 0400. WILL NOTIFY IN MORNING OF ABG DRAW BY RT PER ORDERS FROM .
--- NOTE | 2018-09-04 06:00 | NUR ---
MEDS GIVEN PER MAR/ORDERS, LABS DRAWN AND SENT TO LAB, I/O'S COLLECTED, RT IJ CVL AND LT IJ TRIALYSIS CATH DRSG'S CHANGED USING STANDARD PROCEDURE, DATED AND INITIALED, SUBSTERNAL DRSG CHANGED; TPM WIRE COILED IODINE USED ON SITE WITH BIOPATCH, 4X4 GAUZE OVER SITE, LARGE TEGADERM DRSG PLACED OVER SUBSTERNAL SITE, DATE AND INITIALED, COMPLETE BED BATH WITH WILDE CARE COMPLETED WITH DAY SHIFT RN, LINEN AND GOWN CHANGED, REPOSITIONED FOR COMFORT, ELEVATED EXTREMITIES, RT AT BEDSIDE GIVING Tx, NO ACUTE DISTRESS NOTED FROM PT, VSS, PPP, SHIFT REPORT GIVEN TO DAY SHIFT RN, PT RESTING COMFORTABLE. NO FURTHER AT THIS TIME
[2018-09-04 06:17] LABS: BASOPHILS 0.2 % (0-2); EOSINOPHILS 0 % (0-7); HEMOGLOBIN 9.9 g/dL (13.5-17.5); IMMATURE GRANULOCYTES 5.4 % (0-5); LYMPHOCYTES 6.9 % (15-50); MCH 29.2 pg (26.0-34.0); MCV 88.5 fL (80.0-100.0); MEAN PLATELET VOLUME 10.5 fL (7.4-10.4); MONOCYTES 4.9 % (2-11); NEUTROPHILS 82.6 % (40-80); PLATELET COUNT 96 10x3/uL (130-400); RBC 3.39 10x6/uL (4.20-6.10); RDW 15.6 % (11.5-14.5); WBC 11.8 10x3/uL (4.8-10.8)
[2018-09-04 06:38] LABS: ANION GAP 15.5 mmol/L (8-16); CALCIUM 8.6 mg/dL (8.5-10.1); CARBON DIOXIDE 27.3 mmol/L (21.0-32.0); CREATININE - SERUM 4.1 mg/dL (0.6-1.3); POTASSIUM - SERUM 3.8 mmol/L (3.5-5.1)
[2018-09-04 07:17] LABS: INR 3.34 (0.85-1.17); PROTIME 33.1 SECONDS (11.6-15.0)
[2018-09-04 07:18] LABS: APTT 87.4 SECONDS (22.8-39.4)
--- NOTE | 2018-09-04 07:50 | NUR ---
SHIFT REPORT RECEIVED. PT ON VENT SIMV, R-14, TV650, FIO2 40%, PS 10, PEEP 7. RIJ CVL WITH PROPOFOL AT 25MCG/KG/MIN AND ARGATROBAN AT 0.9MCG/KG/MIN. MIDSTERNAL DRESSING INTACT. SUBSTERNAL DRESSING INTACT. L BERTHA DRAIN IN PLACE WITH SEROSANG DRAINAGE NOTED. WILDE IN PLACE. NO URINE NOTED. OGT WITH NEPRO AT 40ML/HR. HAS LIJ TRIALYSIS WITHD DRESSING INTACT. RLE HARVEST SITES CAROLEE. DAVON HOSE AND SCD'S IN PLACE. SHIFT ASSESSMENT COMPLETED AND CHARTED IN FLOWSHEET. WRIST RESTRAINT IN PLACE PER ORDER. NO FURTHER NEEDS. WILL CONTINUE TO MONITOR CLOSELY.
--- NOTE | 2018-09-04 07:54 | NUR ---
PROPOFOL DECREASED AT THIS TIME. GETTING PT READY FOR CPAP TRIALS.
--- NOTE | 2018-09-04 08:00 | NUR ---
ARGATROBAN PLACED ON HOLD PER ORDERS.
--- NOTE | 2018-09-04 08:19 | NUR ---
AT 0805 CHANGED VENT TO CPAP 12/07 AND LOWERED SEDATION TO 15MCG
--- NOTE | 2018-09-04 08:34 | NUR ---
PROPOFOL HAS BEEN DECREASED TO 10MCG/KG/MIN PER ORDERS. PT ON CPAP TRIAL AT THIS TIME.
--- NOTE | 2018-09-04 10:00 | NUR ---
REPOSITIONED FOR COMFORT AT THIS TIME. CONTINUES ON CPAP TRIAL. WILL CONTINUE TO MONITOR CLOSELY. RADHA RAYA WITH NEPHROLOGY CAME TO SEE PT. ADDRESSED ANURIA WITH HER. NO FURTHER NEEDS AT THIS TIME. WILL CONTINUE TOMONITOR.
--- NOTE | 2018-09-04 10:28 | NUR ---
SEDATION TURNED OFF AT THIS TIME PER DR. VANN'S ORDERS.
--- NOTE | 2018-09-04 10:56 | NUR ---
AT 1037 CHANGED VENT TO PS 5, PEEP [address] VANN.
--- NOTE | 2018-09-04 11:15 | NUR ---
Nutrition Follow Up: Pt continues on vent; sedation off at this time. Pt is tolerating TF of Nepro @ goal rate of 40 ml/hr. No residuals per chart. BM: 08/28/18 I>O Stable wt Labs and meds reviewed Rec continue current TF regimen until diet is able to be advanced. RD following.
--- NOTE | 2018-09-04 11:39 | NUR ---
DR. VANN AND DR. AWAN IN UNIT. DR. VANN WANTS SEDATION TO CONTINUE OFF UNLESS PT GETS REALLY AGITATED. WANTS PT TO WAKE UP MORE. AT THIS TIME PT OPENS EYES SPONTANOUSLY AND MOVES HEAD FROM SIDE TO SIDE, ATTEMPTS TO MOVE ARMS BUT IS NOT FOLLOWING INSTUCTIONS. CONTINUES ON CPAP TRIAL AT THIS TIME. TV 650, PS 10, FIO2 40%, PEEP 8. DR. AWAN STATED THAT PT WILL NOT GET DIALYSED TODAY. HE WANTS TO WAIT UNTIL TOMORROW. HE IS AWARE OF ANURIA. WILL CONTINUE TO MONITOR CLOSELY.
--- NOTE | 2018-09-04 12:36 | NUR ---
PROPOFOL RESTARTED AT THIS TIME PER ORDERS. PT AGITATED BREATHING RATE GREATER THAN 30.
--- NOTE | 2018-09-04 13:16 | NUR ---
APTT 63.5. NO CHANGE TO ARGATROBAN NEEDED AT THIS TIME PER ORDERS. WILL CONTINUE TO MONITOR.
--- NOTE | 2018-09-04 13:34 | NUR ---
CALL RECEIVED FROM PT'S DAUGHTER. PASS CODE VERIFIED "FUNNY FACE" BRIEF UPDATE GIVEN.
--- NOTE | 2018-09-04 14:45 | NUR ---
DR. BEARD IN UNIT. NOTIFIED THAT PT WILL BE MOVED TO ROOM CV01 DUE TO ROOM TEMPERATURE ISSUES IN ROOM CV02.
--- NOTE | 2018-09-04 16:00 | NUR ---
REPOSITIONED FOR COMFORT. CONTINUES ON LIGHT SEDATION. WILL CONTINUE TO MONITOR.
--- NOTE | 2018-09-04 18:00 | NUR ---
RESTING COMFORTABLY. ON LIGHT SEDATION. OPENS EYES SPONTANOUSELY. MOVES HEAD FROM SIDE TO SIDE. VSS. WILL CONTINUE TO MONITOR.
--- NOTE | 2018-09-04 18:45 | NUR ---
TEMPERATURE IN ROOM COOLER AT THIS TIME. PT HAS NOT BEEN MOVED.
--- NOTE | 2018-09-04 20:00 | NUR ---
REPORT RECEIVED. INITIAL ASSESSMENT COMPLETE. PT OPENS EYES SPONTANEOUSLY APPEARS TO MOVE HEAD TOWARD VOICE STIMULI MOVING EXTREMITIES SPONTANEOUSLY DOES NOT FOLLOW COMMANDS AT THIS TIME. JULIAN. ORALLY INTUBATED CONNECTED TO VENT SEE RESP FOR VENT SETTINGS. ORALLY SUCTIONED MODERATE AMOUNT CLEAR SECRETIONS AND SMALL AMOUNT THICK WHITE VIA ETT. PT ON CM WITH ALARMS ON AND AUDIBLE READING CONTROLLED A.FIB PT DOES HAVE PACER WITH SENSING AND CAPTURING NOTED. OCCASIONAL PVC'S. ABD SOFT HYPO BOWEL SOUNDS WITH OGT IN PLACE PER AUSCULTATION WELL ASPIRATION WITH RESIDUAL 10 CC OBTAINED AND RETURNED. TUBE FEEDING CONTINUES VIA PUMP NEPRO AT GOAL RATE OF CC/HOUR NO FLUSH DUE TO RENAL STATUS. PT HAS WILDE PRESENT NO OUTPUT NOTED HAS HAD DIALYSIS DAILY UP UNTIL TODAY. SIDE RAILS UP TIMES 2. SEE ASSESSMENT FLOWSHEETS.
--- NOTE | 2018-09-04 20:30 | NUR ---
TURNING PATIENT CHECKING BUTTOCK REDDENED AREA TO SACRUM MEPILEX SACRUM APPLIED. REPOSITIONED FOR COMFORT
--- NOTE | 2018-09-04 21:00 | NUR ---
DIPRIVAN TUBING CHANGED WITH NEW BOTTLE AT THIS TIME SWAB CAPS IN PLACE
--- NOTE | 2018-09-04 22:00 | NUR ---
REPOSITIONED PT FOR COMFORT NOT WEAPING MUCH BUT REPLACED UNDERPADS WITH DRY AND ALL EXTREMITIES ELEVATED WITH PILLOWS.
--- NOTE | 2018-09-04 23:00 | NUR ---
REASSESSMENT COMPLETE SEE FLOWSHEET NO CHANGES NOTED
[2018-09-05] VITALS (28 sets, daily range): BP systolic 99–147; BP diastolic 44–85
--- NOTE | 2018-09-05 01:00 | NUR ---
SUBSTERNAL DRESSING CHANGED WITH BETADINE SWAB/BETADINE OINTMENT COVERED WITH GAUZE AND SECURED WITH OPSITE. EMPTIED 70 CC FROM BERTHA DRAIN WITH STERILE TECHNIQUE.
--- NOTE | 2018-09-05 03:00 | NUR ---
REASSESSMENT COMPLETE. SEDATION CONTINUES. PT DOES BITE ETT WHEN ATTEMPT TO SUCTION DOES MOVE EXTREMITIES SPONTANEOUSLY AND OPENS EYES SPONTANEOUSLY AND TO VERBAL STIMULI. GENERALIZED EDEMA NOT WEEPING MUCH ALL EXTREMITIES DRY ELEVATED WITH PILLOWS AND HEELS BRIDGED. SCROTUM ELEVATED WELL. OGT TUBE FEED BAG/TUBING CHANGED OUT PER POLICY. OGT RESIDUAL CHECK LESS THAN 10 CC OBTAINED AND RETURNED. TUBE FEED CONTINUES AT GOAL RATE OF 40 CC/HOUR DVAON HOSE AND SCD PUMPS REMOVED FOR SKIN ASSESMENT NO BREAKDOWN SKIN WNL TEDS AND SCD REPLACED. PULSES WEAK BUT ABLE TO PALPATE. WILDE PATENT PT ANURIC PHYSICIANS AWARE. PT HAS HAD DIALYSIS VIA LEFT IJ TRIALYSIS. PT ON CM READING CONTROLLED A FIB WITH OCC PVC PT HAS PERMANENT PACER AND TEMPORARY PACER WIRES COILED SECURED AND INTACT UNDER SUBSTERNAL DRESSING. RIGHT ARM DRESSING PEELING OFF REMOVED CLEANSED SKIN TEAR WITH CHLORAHEXADINE AND REDRESSED WITH TRANSPARENT OPSITE DRESSING TO BE ABLE TO VISUALIZE WOUND. FIRST STEP OVERLAY BILATERAL SOFT WRIST RESTRAINTS IN PLACE PER ORDERS. SPOKE WITH RT CORTEZ AND CHARGE NURSE NATASHA ABOUT ORDER FOR NO ARTERIAL PUNCTURE/ABG BY CV DOC SECONDARY TO HIT WITH ARGATROBAN AND BLEEDING TIMES AND THEN ORDER FOR 0400 ABG FROM [facility]. CORTEZ WORKED LAST PM AND STATED HE LI ABG 09/04/18 WITH NO BLEEDING ISSUES. YUDELKA STATED FOR ABG TO BE DRAWN AND WILL PASS ALONG IN REPORT NEED CLARIFICATION FOR CONFLICTING ORDERS.
--- NOTE | 2018-09-05 04:11 | NUR ---
RT AT BEDSIDE FOR ABG PER [facility] ORDER
--- NOTE | 2018-09-05 04:40 | NUR ---
0400 LABS DRAWN FROM RIGHT IJ. PAUSED DRIPS FLUSHED WITH 10 CC NS WASTE OF 10 CC LABS DRAWN FLUSHED AFTER DRAW WITH 10 CC NS AND RESTARTED DRIPS, AMMONIA LEVEL PLACED ON ICE ORDERED.
--- NOTE | 2018-09-05 05:00 | NUR ---
PO2 ON ABG DOWN TO 72 SPOKE WITH CORTEZ RT AND CHARGE NURSE NATASHA ON INCREASING O2 PT ON 40% RT STATED HES BEEN SHOWING 94-98% ON O2 SAT ALL SHIFT SO NO CHANGES AT THIS TIME.
[2018-09-05 05:15] LABS: BASOPHILS 0.2 % (0-2); EOSINOPHILS 0 % (0-7); HEMATOCRIT 29.9 % (42.0-54.0); IMMATURE GRANULOCYTES 4.6 % (0-5); LYMPHOCYTES 5.8 % (15-50); MCH 29.8 pg (26.0-34.0); MCHC 33.4 g/dL (31.0-37.0); MEAN PLATELET VOLUME 10.6 fL (7.4-10.4); MONOCYTES 7.5 % (2-11); NEUTROPHILS 81.9 % (40-80); RBC 3.36 10x6/uL (4.20-6.10); RDW 15.7 % (11.5-14.5); WBC 12.2 10x3/uL (4.8-10.8)
--- NOTE | 2018-09-05 05:15 | NUR ---
RADIOLOGY HERE FOR AM CHEST FILM PT RESP RAPID INCREASED COMMUNICATION COORDINATOR HAVING DIFFICULT TIME GETTING TIMING FOR FILM. INCREASED DIPRIVAN TO 15 MCG FOR A FEW MINUTES AND ENCOURAGED PATIENT TO TRY TO RELAX ABLE TO GET GOOD FILM AFTER COUPLE MINUTES, PT CALMED DOWN AND DIPRIVAN BACK TO 10 MCG WILL CONTINUE TO MONITOR
[2018-09-05 05:21] LABS: INR 2.75 (0.85-1.17); PLATELET COUNT 127 10x3/uL (130-400); PROTIME 28.4 SECONDS (11.6-15.0)
[2018-09-05 05:22] LABS: APTT 72.7 SECONDS (22.8-39.4)
[2018-09-05 05:25] LABS: ANION GAP 18.2 mmol/L (8-16); CALCIUM 8.9 mg/dL (8.5-10.1); POTASSIUM - SERUM 4.2 mmol/L (3.5-5.1)
[2018-09-05 05:27] LABS: CREATININE - SERUM 5.2 mg/dL (0.6-1.3)
--- NOTE | 2018-09-05 06:09 | NUR ---
DIPRIVAN INCREASED TO 12 MCG/ 8.6 CC HOUR DUE TO INCREASED RESP PT BITING TUBE VENT ALARMING SUCTIONED MODERATE AMOUNT CLEAR SECRETIONS ORALLY AND VIA ORAL ETT. DIPRIVAN TUBING CHANGED WITH NEW BOTTLE.
--- NOTE | 2018-09-05 06:15 | NUR ---
PT HAD SMALL SMEAR OF LIQUID BROWN STOOL PARTIAL BATH AND COMPLETE LINEN CHANGE. MEPILEX TO SACRUM
--- NOTE | 2018-09-05 06:38 | NUR ---
DR BEARD INFORMED OF PT STATUS. ORDER FOR NO ABG OR ARTERIAL STICK OBTAINED.
--- NOTE | 2018-09-05 06:45 | NUR ---
PTT IN THERAPEUTIC RANGE PER ARGATRABAN PROTOCOL.
--- NOTE | 2018-09-05 06:45 | NUR ---
CHARGE NURSE SPOKE WITH DR BEARD VIA PHONE INFORMED OF CONFLICTING ORDER WITH ABG/ARTERIAL STICK FROM PULMONOLOGY AND CLARIFICATION OF PTT LEVEL FOR GTT DR BONNER IS HANDLING THE ARGOTROBAN GTT AND PTT LEVELS. DR BEARD DID TELL NATASHA NO MORE STICKS
--- NOTE | 2018-09-05 08:33 | NUR ---
CHANGED VENT TO CPAP 12/05 @ [address] VANN.
--- NOTE | 2018-09-05 09:11 | NUR ---
TERMINATED CPAP TRIAL @0905 FOR HIGH HR OF 118.
--- NOTE | 2018-09-05 09:17 | NUR ---
RR 32-HR INCREASED TO 113 UCAF-RR/TV RATIO INCREASED TO 89-DIPRIVAN OFF-RETURNED TO SIMV -DIPRIVAN RESTARTED AT 7MCG-REPOSITIONED -PT ABLE TO ACKNOWLEDGE FAMILY AT BEDSIDE
--- NOTE | 2018-09-05 09:32 | NUR ---
REVIEWED CAREPLAN-CHANGE MADE TO INCREASE GOAL DATES FOR RESP AND CARDIAC-
--- NOTE | 2018-09-05 09:34 | NUR ---
RENAL SERVICES AT BEDSIDE
--- NOTE | 2018-09-05 13:18 | NUR ---
0930-DR AWAN-ORDER RECIEVED FOR DIALYSIS TODAY-VOLUME 1030-DR BEARD AT [facility] AND INFORMED OF PLAN FOR [id number] RESP RESULTS FOR CPAP TRIAL -HR 120-RR 23-RETURN TO [facility] TO 4 WITH DIPRIVAN-ATTEMPT AGAIN POST DIALYSIS
--- NOTE | 2018-09-05 16:41 | NUR ---
DRG TO R TRIALYSIS REMOVED FOR DIALYSIS ACCESS-NEW CENTRAL LINE DRG PLACED WITH GOOD ADHERENCE-DIALYSIS STARTED -[facility] SERVICES AT BEDSIDE-FAMILY AT BEDSDIE-DIALYSIS NURSE ADDRESSED QUESTIONS APPROPRIATELY-FAMILY ASKED REGARDING PT REHAB -STRESSED WOULD BE EXTENSIVE AND IN [id number] PULMONOLOGY AND FLUID BALANCES-FAMILY STRESSED CONCERNED IF PT COULD MEET PT NEEDS AT HOME-NOTE LEFT WITH CASE MANAGEMENT FOR FOLLOW UP
--- NOTE | 2018-09-05 17:20 | NUR ---
DIALYSIS IN PROGRESS-TOLERATING WELL -DIPRIVAN AT 7MCG-PT AWAKENING EASILY-RR 24
--- NOTE | 2018-09-05 18:40 | NUR ---
DIALYSIS COMPLETE-PT ABLE TO OPEN EYES TO VERBAL-BREATH SOUNDS ROXANNE CLR WITH GOOD AIR ENTRY
--- NOTE | 2018-09-05 19:15 | NUR ---
BEDSIDE REPORT WITH DAY SHIFT RN REPOSITIONING PT PT WAS TURNED ON RIGHT SIDE AND NOTED LARGE LIQUID LIGHT BROWN DIARHEA BM PARTIAL BATH AND COMPLETE LINEN CHANGE, STOOL HAD GOTTEN ON THE COMFORT GLIDE PAD MEPILEX DRESSING SOILED WELL CLEANED AND APPLIED NEW MEPILEX SACRUM. PT MOVING BOTH ARMS TOWARDS TUBE WHEN TURNING SIDE TO SIDE. AFTER GETTING PT CLEANED UP LINENS CHANGED REPOSITIONED PT ON RIGHT SIDE.
--- NOTE | 2018-09-05 19:30 | NUR ---
REPORT NOW COMPLETE PT CLEANED UP AND POSITIONED ON RIGHT SIDE ORALLY INTUBATED SEE RESP NOTES FOR SETTINGS CHANGES AND TREATMENTS. O2 SAT 94% PT BREATH SOUNDS CLEAR TO AUSCULTATE SUCTIONED MODERATE AMOUNT FROM ETT AND ORALLY PT BITES ETT WHEN TRYING TO SUCTION. CM READING CONTROLLED A FIB ALARMS ON AND AUDIBLE. PT HAS PERMANENT PACER AND TEMP PACER WIRES SECURED UNDER GAUZE DRESSING TO CHEST. ABD ROTUND SOFT ACTIVE BS. TUBE FEEDINGS TURNED OFF WHEN NOTED WHITE DURAN FLUID ON BED AND BACKED UP IN TUBE ONLY GOT BACK 15 RESIDUAL. VERIFIED PLACEMENT BY AUSCULTATION WITH AIR BOLUS. WILL KEEP OFF AND REASSESS LATER. SEE ASSESSMENTS FOR OTHER DETAILS
--- NOTE | 2018-09-05 20:00 | NUR ---
PTS FAMILY; , DAUGHTER AND GRANDSON AT BEDSIDE FOR VISITATION UPDATE GIVEN QUESTIONS ANSWERED.
--- NOTE | 2018-09-05 22:00 | NUR ---
PT HAD LARGE LIGHT BROWN LIQUID BROWN STOOL COMPLETE BATH AND LINEN CHANGE
--- NOTE | 2018-09-05 23:00 | NUR ---
REASSESSMENT MADE SEE FLOWSHEET. OGT FEEDING REMAIN OFF REPOSITIONED FOR COMFORT. DIPRIVAN INCREASED TO 15 MCG PT HEART RATE AND RESP 25 TIMES MIN CPOC
[2018-09-06] VITALS (39 sets, daily range): BP systolic 105–157; BP diastolic 31–88
--- NOTE | 2018-09-06 01:00 | NUR ---
CHECKING RESIDUAL FROM OGT DIFFICULT TO PULL MINIMAL BACK AND PLACEMENT VERIFIED WITH AUSCULTATION OF AIR BOLUS BY MYSELF AND CHARGE NURSE NATASHA. CHARGE NURSE WORKED WITH OGT FLUSHING RECEIVED BACK 220 CC OF DURAN OUTPUT WITH WHITE AND DURAN SEDIMENT. OGT FEEDINGS STILL OFF AND PLACED OGT TO LIWS WITH IMMEDIATE RETURN OF APPROX 100 CC
--- NOTE | 2018-09-06 03:00 | NUR ---
REASSESSMENT MADE REPOSITIONED FOR COMFORT. CPOC
--- NOTE | 2018-09-06 06:00 | NUR ---
COMPLETE BED BATH CHG MEPILEX TO SACRUM AND TRANSPARENT OPSITES REPLACED TO LEFT HAND AND RIGHT ARM NO DRESSING TO POSTERIOR HEAD. ELEVATED WITH FOAM CUSHION WITH AREA OF REDDENED AREA OPEN SO NO PRESSURE TO AREA. BLOOD DRAWN FOR AM LABS. DRESSING CHANGED TO OLD CT SITES, PACER WIRES AND BERTHA DRAIN.
[2018-09-06 06:34] LABS: BASOPHILS 0.3 % (0-2); EOSINOPHILS 0 % (0-7); HEMATOCRIT 30.6 % (42.0-54.0); HEMOGLOBIN 10.1 g/dL (13.5-17.5); IMMATURE GRANULOCYTES 3.3 % (0-5); LYMPHOCYTES 9.8 % (15-50); MCH 29.2 pg (26.0-34.0); MCV 88.4 fL (80.0-100.0); MEAN PLATELET VOLUME 10.1 fL (7.4-10.4); MONOCYTES 6.7 % (2-11); NEUTROPHILS 79.9 % (40-80); RBC 3.46 10x6/uL (4.20-6.10); RDW 15.5 % (11.5-14.5); WBC 10.9 10x3/uL (4.8-10.8)
[2018-09-06 06:37] LABS: INR 2.61 (0.85-1.17); PROTIME 27.2 SECONDS (11.6-15.0)
[2018-09-06 06:38] LABS: APTT 74.8 SECONDS (22.8-39.4)
[2018-09-06 06:43] LABS: PLATELET COUNT 155 10x3/uL (130-400)
[2018-09-06 07:00] LABS: ANION GAP 15.3 mmol/L (8-16); CALCIUM 8.9 mg/dL (8.5-10.1); CARBON DIOXIDE 27.7 mmol/L (21.0-32.0); CREATININE - SERUM 4.5 mg/dL (0.6-1.3)
--- NOTE | 2018-09-06 07:59 | NUR ---
RECIEVED PER FLOW SHEET-NOTED OGT TUBE ASPIRATE 50ML-TUBE CLAMPED -AUDIBLE BOWEL SOUNDS ABD APPEARS SOFT NO TENDERNESS NOTED WITH STRONG PALPITATION
--- NOTE | 2018-09-06 08:22 | NUR ---
AT 0820 CHANGED VENT TO CPAP 10/5 FOR WEANING TRAILS.
--- NOTE | 2018-09-06 09:37 | NUR ---
FAMILY AT [facility]-PT ON CPAP TRIAL-TUBE FEEDING RESTARTED -RESIDUAL<40-DR AWAN AT BEDSIDE AND SPOKE WITH DAUGHTER-CURRENT THERAPY AND CONTINUED PLAN OF ACTION REGARDING DIALYSIS-DAUGHTER STATED PROSTECTOMY IN 2001-
--- NOTE | 2018-09-06 10:18 | NUR ---
DR BEARD AT BEDSIDE AND EXPRESSED STRONG CONCERN REGARDING SEDATION LEVELS-DIPRIVAN OFF AT THIS TIME-PT RESTLESS-RR 30-O2 SAT 90-DR BEARD STRESSED TO REMOVE SEDATION-
--- NOTE | 2018-09-06 13:59 | NUR ---
1130-DR ROWELL AT BEDSIDE AND INFORMED CPAP-SEDATION OFF AT 0700-DIRECTED BY DR ROWELL VENT SUPPORT AT NIGHT WITH SEDATION-STRESSED DR BEARD CONCERN REGARDING SEDATION-DR ROWELL REPEATED VENT SUPPORT WITH SEDATION AT NIGHT
--- NOTE | 2018-09-06 18:43 | NUR ---
DR BEARD MADE AWARE OF R CORDIS SITE AND CURRENT STATUS UPDATE GIVEN
--- NOTE | 2018-09-06 19:30 | NUR ---
Received patient sedated in bed with eyes closed, assessment completed per merna. Patient opens eyes to voice/nods weakly to questions, returns to sleep quickly. ETT 7.5 @ 25cm secured, OGT with Nepro @ 40ml/hr ongoing. L IJ trialysis cath secured, dressing CDI. S1/S2 noted Controlled Afib with 100% A/V pacing on telemetry, distant. Vent settings SIMV R-12 V-650 40% P-5 PS-10 with O2 sat 96%, lung sounds clear throughout. Midline sternum incision dresing CDI, Substernal Rafa x1 with small serous drainage. TPM wire x1 secured, not connected. All pulses weak palpable with cap refill < 3 sec, skin cool/dry with passive ROM all extremities. Oral care provided, repositioned for comfort. No further needs at this time, see flowsheet for details. All VSS and will continue to monitor.
--- NOTE | 2018-09-06 20:00 | NUR ---
/Grandson at bedside for visitation, discussed current status with no questions at this time. All VSS and will continue to monitor.
--- NOTE | 2018-09-06 21:00 | NUR ---
HS meds given via OGT without difficulty, oral care preovided/repositioned for comfort. No further needs at this time, all VSS and will continue to monitor.
--- NOTE | 2018-09-06 23:00 | NUR ---
Reassessment completed per flowsheet, no changes noted from previous assessment. ETT/OGT secured, Nepro @ 40ml/hr. S1/S2 noted Controlled Afib with 100% A/V pacing on telemetry, HR sounds distant. Vent settings unchanged from previous with O2 sat 97%, lung sounds clear throughout. Midline incsion dressing CDI, Substernal Rafa x1 with small serous drainage. All pulses weak palpable with cap refill < 3 sec, skin cool/dry with generalized edema noted. Oral care provided, repositioned for comfort. No further needs at this time, see flowsheet for details. All VSS and will continue to monitor.
[2018-09-07] VITALS (32 sets, daily range): BP systolic 108–145; BP diastolic 37–79
[2018-09-07 00:25] LABS: HEMATOCRIT 28.3 % (42.0-54.0); HEMOGLOBIN 9.4 g/dL (13.5-17.5); MCH 29.7 pg (26.0-34.0); MCHC 33.2 g/dL (31.0-37.0); MCV 89.6 fL (80.0-100.0); MEAN PLATELET VOLUME 9.7 fL (7.4-10.4); RBC 3.16 10x6/uL (4.20-6.10); RDW 15.2 % (11.5-14.5); WBC 10.7 10x3/uL (4.8-10.8)
--- NOTE | 2018-09-07 01:00 | NUR ---
Patient sedated in bed with eyes closed, no s/s of distress at this time. Oral care/suctioning provided by RT Gisele, repositioned for comfort. No further needs at this time, all VSS and will continue to monitor.
--- NOTE | 2018-09-07 02:30 | NUR ---
Full bed bath/linen change performed, patient tolerated well. Incontinent of bowel with liquid brown stool noted, DAVON Hose/SCD changed. Restraints removed for skin inspection, skin intact and restraints reapplied. No further needs at this time, all VSS and will continue to monitor.
--- NOTE | 2018-09-07 03:00 | NUR ---
Reassessment completed per flowsheet, no changes noted from previous assessment. ETT/OGT secured, Nepro @ 40ml/hr ongoing. S1/S2 noted Controlled Afib with 100% A/V pacing on telemetry, HR sounds distant. Vent settings unchanged from previous with O2 sat 98%, lung sounds clear throughout. Midline sternum incision dressing CDI, L substernal Rafa x1 with small serous drainage. Oral care/suctioning provided, repositioned for comfort. No further needs at this time, see flowsheet for details. All VSS and will continue to monitor.
--- NOTE | 2018-09-07 05:00 | NUR ---
TF bags changed, IV tubing changed per protocol. Oral care provided, repositioned for comfort. No further needs at this time, all VSS and will continue to monitor.
[2018-09-07 05:46] LABS: BASOPHILS 0.4 % (0-2); EOSINOPHILS 0 % (0-7); HEMATOCRIT 29.2 % (42.0-54.0); HEMOGLOBIN 9.6 g/dL (13.5-17.5); IMMATURE GRANULOCYTES 2.6 % (0-5); MCH 29.1 pg (26.0-34.0); MCHC 32.9 g/dL (31.0-37.0); MCV 88.5 fL (80.0-100.0); MEAN PLATELET VOLUME 9.7 fL (7.4-10.4); MONOCYTES 5.8 % (2-11); NEUTROPHILS 84.2 % (40-80); PLATELET COUNT 166 10x3/uL (130-400); RDW 15.3 % (11.5-14.5)
[2018-09-07 05:56] LABS: APTT 57.7 SECONDS (22.8-39.4); INR 2.53 (0.85-1.17); PROTIME 26.5 SECONDS (11.6-15.0)
[2018-09-07 05:58] LABS: ANION GAP 17.3 mmol/L (8-16); CARBON DIOXIDE 25.8 mmol/L (21.0-32.0); POTASSIUM - SERUM 4.1 mmol/L (3.5-5.1)
[2018-09-07 06:06] LABS: CREATININE - SERUM 5.8 mg/dL (0.6-1.3)
--- NOTE | 2018-09-07 07:10 | NUR ---
SHIFT REPORT RECEIVED. PT AWAKE AND ALERT. SEDATION IS OFF. GETTING READY FOR CPAP TRIAL. VENT SETTING SIMV R-12, TV 650, PS 10, PEEP 5. ETT SIZE 7.5 25 AT THE LIP. OGT TUBE IN PLACE WITH NEPRO AT 40ML/HR. RESIDUAL AT THIS TIME 20ML. TUBE FLUSHED WITH 20ML H20. HAS RIJ CVL WITH ARGATROBAN AT 0.7MCG/KG/MIN. HAS LIJ TRIALYSIS. MIDSTERNAL DRESSING INTACT. LEFT BERTHA DRAIN IN PLACE. DRESSING CDI, TPM WIRES COILED AND SECURE. PERMANENT PACE MAKER IN PLACE. WILDE IN PLACE NO URINE NOTED. RLE HARVEST SITES WELL APPROXIMATED. BRUISING NOTED ON RLE. DAVON HOSE AND SCD'S IN PLACE. PT MOVES ARMS AND LEGS. FOLLOWS SOME COMMANDS. WILL CONTINUE TO MONITOR CLOSELY.
--- NOTE | 2018-09-07 07:40 | NUR ---
PT ON CPAP TRIAL AT THIS TIME.
--- NOTE | 2018-09-07 08:00 | NUR ---
DR. BEARD IN UNIT. CHANGED LOPRESSOR IV TO PO. ORDERED VENOUS ACCESS NURSE CONSULT FOR PICC LINE PLACEMENT. WANTS CVL REVOVED AFTER PICC LINE HAS BEEN PLACE.
--- NOTE | 2018-09-07 09:21 | NUR ---
NUTRITION F/U CHART REVIEWED, PT VISIT. TOLERATING NEPRO AT GOAL RATE 40 CC/HR. RECEIVING HD. NOTE ONGOING CPAP TRIALS. RD FOLLOWING
--- NOTE | 2018-09-07 09:26 | NUR ---
CONTINUES ON CPAP TRIAL. SPOUSE AT BEDSIDE. NO FURTHER NEEDS. WILL CONTINUE TO MONITOR.
--- NOTE | 2018-09-07 11:06 | NUR ---
DR. ROWELL IN UNIT. PLACED PT BACK ON A/C, R 12, TV 650, FIO2 40%, PEEP 5. PROPOFOL RESTARTED AT 5MCG/KG/MIN PER DR. ROWELL. HE WANTS PT LIGHTLY SEDATED. WILL SEE ABOUT EXTUBATING AFTER DIALYSIS.
[2018-09-07 11:08] LABS: FUNGUS MYCOLOGY CULTURE Preliminary report (())
--- NOTE | 2018-09-07 12:05 | NUR ---
SPOUSE AT BEDSIDE. PT ON LIGHT SEDATION. RESTING COMFORTABLY. WILL CONTINUE TO MONITOR CLOSELY.
--- NOTE | 2018-09-07 12:21 | NUR ---
BS 171. 2 UNITS OF HUMULIN REG GIVEN PER ORDERS.
--- NOTE | 2018-09-07 13:52 | NUR ---
RESTING COMFORTABLY. FAMILY AT BEDSIDE. WILL CONTINUE TO MONITOR CLOSELY.
--- NOTE | 2018-09-07 14:40 | NUR ---
RESTING COMFORTABLY. SPOUSE AT BEDSIDE. WILL CONTINUE TO MONITOR CLOSELY.
--- NOTE | 2018-09-07 15:41 | NUR ---
RE-ASSESSMENT COMPLETED. RESTING COMFORTABLY. CONTINUES ON AC. NO ACUTE CHANGES NOTED FROM PREVIOUS ASSESSMENT. WILL CONTINUE TO MONITOR.
--- NOTE | 2018-09-07 16:38 | NUR ---
PT RESTING COMFORTABLY. DIALYSIS NURSE AT BEDSIDE. UNABLE TO GIVE RHOCEPHIN AT THIS TIME DUE TO DIALYSIS. WILL GIVE AFTER DIALYSIS IS COMPLETED.
--- NOTE | 2018-09-07 19:15 | NUR ---
Patient resting in bed on vent with eyes open, Dialysis ongoing with assessment completed per flowsheet. Patient opens eyes spontaneous/follows simple instructions, nods appropriately to questions. ETT 7.5 @ 25cm, OGT with Nepro @ 40ml/hr. L IJ trialysis in use, R IJ CVL with dressing CDI. S1/S2 noted Controlled afib with 100% A/V pacing noted on telemetry. Vent settings A/C R-12 V-650 40% P-5 with O2 sat 97%, lung sounds clear bilateral upper and mid with diminished lower. Midline sternum incision dressing CDI, TPM wires x1 secured/L substernal Rafa x1 with small serous drainage. Abdomen is obese/soft with bowel sounds active x4, non-tender. López secured, patient anuric at this time. Weakness/generalized edema noted all, all pulses palpable with skin cool/dry. Oral care provided, repositioned for comfort. No further needs at this time, see flowsheet for details. All VSS and will continue to monitor.
--- NOTE | 2018-09-07 20:15 | NUR ---
Dialysis completed, 2L fluid removed with no s/s of distress. Patient Family at bedside post-dialysis, discussed current status with all questions answered to satisfaction.
--- NOTE | 2018-09-07 21:00 | NUR ---
Patient resting in bed with eyes closed on vent, no s/s of distress at this time. HS meds given via OGT without difficulty, oral care/repositioning provided. No further needs and will continue to monitor.
--- NOTE | 2018-09-07 21:45 | NUR ---
López removed per Dr Arellano orders, Bladder scan PRN for urine retention.
--- NOTE | 2018-09-07 23:00 | NUR ---
Reassessment completed per flowsheet, no changes noted from previous assessment. ETT/OGT secured, Nepro @ 40ml/hr. S1/S2 noted Controlled Afib with 100% A/V pacing on telemetry. Vent settings unchanged with O2 sat 98%, lung sounds clear bilateral upper and mid with diminished lower. Midline sternum dressing CDI, TPM wires secure/Rafa x1 with small serous drainage. [place] sites well approximated, small bruising noted/soft to palpation. Oral care provided, repositioned for comfort. No further needs at this time, see flowsheet for details. All VSS and will continue to monitor.
[2018-09-08] VITALS (24 sets, daily range): BP systolic 102–149; BP diastolic 51–91
[2018-09-08 00:46] LABS: HEMATOCRIT 29.6 % (42.0-54.0); HEMOGLOBIN 9.8 g/dL (13.5-17.5); MCH 29.7 pg (26.0-34.0); MCHC 33.1 g/dL (31.0-37.0); MCV 89.7 fL (80.0-100.0); RBC 3.3 10x6/uL (4.20-6.10); RDW 15.3 % (11.5-14.5); WBC 12.8 10x3/uL (4.8-10.8)
--- NOTE | 2018-09-08 01:00 | NUR ---
Patient resting in bed with eyes closed on vent, no s/s of distress at this time. Oral care/suctioning provided by RT, repositioned for comfort. No further needs at this time, all VSS and will continue to monitor.
--- NOTE | 2018-09-08 02:55 | NUR ---
Reassessment completed per flowsheet, no changes noted from previous assessment. S1/S2 noted Controlled Afib with 100% A/V pacing on telemetry. Vent settings unchanged from previous with O2 sat 96%, lung sounds clear bilateral upper and mid with diminished lower. Midline incision dressing CDI, TPM wires x1 secured/L substernal Rafa x1 with serous drainage. All pulses palpable with cap refill < 3 sec, skin warm/dry. Oral care provided, repositioned for comfort. No further needs at this time, see flowsheet for details. All VSS and will continue to monitor.
--- NOTE | 2018-09-08 03:45 | NUR ---
Substernal dressing changed, TPM wire secured/Rafa x1 with small serous drainage. R IJ CVL dressing changed, old blood noted. L Trialysis dressing changed, Tonya care performed. Oral care provided, repositioned for comfort. All VSS and will continue to monitor.
--- NOTE | 2018-09-08 05:10 | NUR ---
Radiology on unit, CXR ordered and performed. Oral care provided, repositioned for comfort. No further needs at this time, all VSS and will continue to monitor.
[2018-09-08 06:11] LABS: CALCIUM 9.1 mg/dL (8.5-10.1); CARBON DIOXIDE 28.7 mmol/L (21.0-32.0); CREATININE - SERUM 4.5 mg/dL (0.6-1.3); POTASSIUM - SERUM 3.7 mmol/L (3.5-5.1)
[2018-09-08 06:19] LABS: INR 2.29 (0.85-1.17); PROTIME 24.5 SECONDS (11.6-15.0)
[2018-09-08 06:20] LABS: APTT 52.8 SECONDS (22.8-39.4)
[2018-09-08 06:33] LABS: BASOPHILS 0.3 % (0-2); EOSINOPHILS 0 % (0-7); HEMATOCRIT 28.2 % (42.0-54.0); HEMOGLOBIN 9.3 g/dL (13.5-17.5); IMMATURE GRANULOCYTES 2.3 % (0-5); LYMPHOCYTES 5.4 % (15-50); MCH 29.8 pg (26.0-34.0); MCV 90.4 fL (80.0-100.0); MEAN PLATELET VOLUME 9.7 fL (7.4-10.4); PLATELET COUNT 192 10x3/uL (130-400); RBC 3.12 10x6/uL (4.20-6.10); WBC 12.5 10x3/uL (4.8-10.8)
--- NOTE | 2018-09-08 07:00 | NUR ---
Shift report received. Pt awake and alert. Sedation off at this time, getting ready for cpap trial. Vent A/C, R-12, TV 650, FIO2 100%, PEEP 5. ETT 7.5, 25 at the lip midline. Midsternal and substernal dressing in place. TPM wire coiled and secured. L lalito drain in place with serous drainage noted. RLE harvest sites glue intact, open to air. Slight bruising noted on RLE. DAVON hose and SCD's in place. OG tube in place with Nepro at 40ml/hr. Wrist restraints in place per order. Skin tear noted on R-forearm and L-hand. RIJ CVL with argatroban infusing at 0.7mcg/kg/min. LIJ trialysis in place, dressing intact. Bed placed in low position. Side rails up x 2. Close monitoring. Shift assessment charted in flowsheet.
--- NOTE | 2018-09-08 08:02 | NUR ---
Dr. Carroll in unit. Pt switched to CPAP trial at this time. TV 650, PS 10, FIO2 40%, PEEP 5.
--- NOTE | 2018-09-08 08:50 | NUR ---
CALL RECEIVED FROM DR. WALDEN. HE WANTS US TO USE CURRENT LINE UNTIL HE IS ABLE TO PLACE NEW LINE.
--- NOTE | 2018-09-08 09:10 | NUR ---
PT EXTUBATED AT THIS TIME. PLACED ON BIPAP FIO2 40% PER DR. ROWELL'S ORDERS. PULLED UP IN BED AND REPOSITIONED FOR COMFORT. OG TUBE REMOVED WHEN EXTUBATED. TUBE FEEDING OFF. WILL CONTINUE TO MONITOR.
--- NOTE | 2018-09-08 09:18 | NUR ---
PER DR. ROWELL PATIENT TO BE EXTUBATED TO BIPAP 02/04 40%
--- NOTE | 2018-09-08 10:06 | NUR ---
ON DIALYSIS AT THIS TIME.
--- NOTE | 2018-09-08 11:05 | NUR ---
Re-assessment completed. On bipap at FIO2 40%. On dialysis treatment. Tolerating well. Will continue to monitor closely.
--- NOTE | 2018-09-08 11:47 | MORECARE ---
CASE MANAGEMENT DISCHARGE SUMMARY PATIENT: MALINDA FAN JR UNIT: [id number] ADM DATE: 08/27/18 AGE: 82 : 36 SEX: M [facility] AUTHOR: AC,DOC PHYSICIAN: REFERRING PHYSICIAN: AMANDO HORNER M.D. DATE OF SERVICE: 09/08/18 Discharge Plan Patient Name: MALINDA FAN Facility: [facility]:[place] : 1935 Planned Disposition: Home Anticipated Discharge Date: Discharge Date: Expected LOS: Initial Reviewer: [email or web address] Initial Review Date: 08/27/2018 Generated: 09/08/18 12:46 pm Comments DCP- Discharge Planning Updated by [email or web address]: Roya Lees on 09/08/18 10:[address] Patient Name: MALINDA FAN Admission Status: Elective Accout number: [id number] Admission Date: 08-27-2018 : 1935 Admission Diagnosis:ATHSCL HEART DISEASE OF [place] CORONARY ARTERY W/O ANG Attending: AMANDO HORNER Current LOS: 12 Anticipated DC Date: Planned Disposition: Home Primary Insurance: MEDICARE A & B Discharge Planning Comments: CM SPOKE WITH NURSE TODAY, PATIENT HAS JUST BEEN EXTUBATED. CM WILL FOLLOW AND ASSIST NEEDED WITH DC PLANNING/NEEDS. FAMILY WANTS [facility], CM WAITING TO SEE IF PATIENT WILL BE APPROPRIATE FOR [facility]. Straight Line Press Setter: Roya Lees DCP- Discharge Planning Updated by [email or web address]: Lenore Knapp on 08/27/18 4:[address] Patient Name: MALINDA FAN Admission Status: Elective Accout number: [id number] Admission Date: 08-27-2018 : 1935 Admission Diagnosis: Attending: AMANDO HORNER Current LOS: 1 Anticipated DC Date: Planned Disposition: Home Primary Insurance: MEDICARE A & B Discharge Planning Comments: CM met with patient and spouse (Priti) at bedside after explaining CM role and obtaining verbal consent. Patient lives at home with his Steffi and plans to return there upon discharge. Patient feels this would be a safe discharge. CM discussed availability / needs of home health and medical equipment. Patient states that he has CPAP. Patient denies any discharge needs at this time. Patient states he will have his drive him home upon discharge. CM will continue to follow and assist as needed with discharge planning / needs. Straight Line Press Setter: Lenore POND - Discharge Planning Initial Assessment Updated by [email or web address]: Lenore Knapp on 08/27/18 5:46 pm * Is the patient Alert and Oriented? Yes * How many steps to enter\exit or inside your home? * PCP DESTIN * Pharmacy [facility] * Preadmission Environment Home with Family * ADLs Independent * Equipment CPAP * List name and contact numbers for known caregivers / representatives who currently or will assist patient after discharge: PRITI FAN - - [phone], * Verbal permission to speak to the caregivers and representatives has been obtained from the patient. Yes * Community resources currently utilized None * Additional services required to return to the preadmission environment? No * Can the patient safely return to the preadmission environment? Yes * Has this patient been hospitalized within the prior 30 days at any hospital? No Last DP export: 08/27/18 4:53 p Patient Name: MALINDA FAN Page [id number] at 1147 All edits/amendments must be made on the electronic document DICTATION DATE: 09/08/186 CORRECTIONAL NURSE: TANYA 09/08/18 1146 RPT#: [id number] DC DATE: STATUS: ADM IN [facility] [address] [place] [address] END OF REPORT
--- NOTE | 2018-09-08 12:34 | NUR ---
DIALYSIS COMPLETED AT THIS TIME. 2L TAKEN OFF. PT TOLERATED WELL. SBP 132. CONTINUES ON BIPAP. WILL CONTINUE TO MONITOR CLOSELY.
--- NOTE | 2018-09-08 14:00 | NUR ---
RE-POSSITIONED FOR COMFORT. SPOUSE AT BEDSIDE. NO FURTHER NEEDS AT THIS TIME. WILL CONTINUE TO MONITOR CLOSELY.
--- NOTE | 2018-09-08 14:40 | NUR ---
DR. BEARD IN UNIT. ORDERED 2.5 IV LOPRESSOR Q 4H. HOLD LOPRESSOR IF SBP IS <100 OR HR IS <60. HE ALSO ORDERED PHYSICAL THERAPY AND OCCUPATIONAL THERAPY CONSULT. ORDERED PT TO DANGLED ON SIDE OF BED WITH THE HELP FROM PHYSICAL THERAPY.
--- NOTE | 2018-09-08 15:25 | NUR ---
DR. HADLEY AT BEDSIDE. PT RESTING COMFORTABLY. CONTINUES ON BIPAP AT 40% FIO2. WILL CONTINUE TO MONITOR.
--- NOTE | 2018-09-08 17:37 | NUR ---
CHG BATH GIVEN AT THIS TIME. COMPLETE LINEN CHANGE PROVIDED. PT TOLERATED WELL. SACRAL DRESSING APPLIED TO BUTTOCKS. RESTING COFORTABLY. WILL CONTINUE TO MONITOR.
--- NOTE | 2018-09-08 18:19 | NUR ---
BS 119. NO INSULIN GIVEN PER SLIDING SCALE.
--- NOTE | 2018-09-08 19:30 | NUR ---
PT RECEIVED ON BIPAP WITH EYES OPENING SPONTANEOUSLY. VSS. RECEIVING ARGATROBAN TO RIGHT IJ CVL. NO S/S OF DISTRESS. ON ONE ON ONE OBSERVATION. DRESSINGS TO MIDSTERNAL AND SUBSTERNAL C/D/I.
--- NOTE | 2018-09-08 20:41 | NUR ---
IN AT BEDSIDE FOR VISIT AND JUST LEFT FOR THE NIGHT. UPDATE GIVEN AND QUESTIONS ANSWERED.
--- NOTE | 2018-09-08 22:42 | NUR ---
PT WITH EYES OPEN ON BIPAP, TOLERATING WELL. RT AT BEDSIDE. VSS. WILL CONTINUE TO OBSERVE.
--- NOTE | 2018-09-08 23:17 | NUR ---
REASSESSMENT COMPLETED, SEE FLOW SHEET. WILL CONTINUE TO OBSERVE.
[2018-09-09] VITALS (29 sets, daily range): BP systolic 113–149; BP diastolic 58–84
[2018-09-09 00:31] LABS: HEMATOCRIT 30.2 % (42.0-54.0); HEMOGLOBIN 10.1 g/dL (13.5-17.5); MCHC 33.4 g/dL (31.0-37.0); MCV 89.6 fL (80.0-100.0); MEAN PLATELET VOLUME 9.7 fL (7.4-10.4); RBC 3.37 10x6/uL (4.20-6.10); RDW 15.1 % (11.5-14.5); WBC 13.2 10x3/uL (4.8-10.8)
--- NOTE | 2018-09-09 01:20 | NUR ---
SUBSTERNAL DRESSING CHANGED WITH SCANT DRAINAGE NOTED TO OLD DRESSING. TPM WIRE PRESENT AND SECURED. DRESSING TO BILATERAL IJ CHANGED PER PROTOCOL. PT TOLERATED WELL. WILL CONTINUE TO OBSERVE.
--- NOTE | 2018-09-09 03:58 | NUR ---
REASSESSMENT COMPLETED, SEE FLOW SHEET. PT SLIDING DOWN IN BED WITH ASSIST GIVEN BEING PULLED UP. PT TOLERATES WELL. WILL CONTINUE TO OBSERVE.
--- NOTE | 2018-09-09 05:52 | NUR ---
CHG BATH GIVEN, WITH LINENS CHANGED. PT TOLERATED WELL. VSS. WILL CONTINUE TO OBSERVE
[2018-09-09 06:13] LABS: BASOPHILS 0.3 % (0-2); EOSINOPHILS 0 % (0-7); HEMATOCRIT 29.6 % (42.0-54.0); HEMOGLOBIN 9.7 g/dL (13.5-17.5); IMMATURE GRANULOCYTES 1.7 % (0-5); LYMPHOCYTES 5.7 % (15-50); MCH 29.7 pg (26.0-34.0); MCHC 32.8 g/dL (31.0-37.0); MCV 90.5 fL (80.0-100.0); MEAN PLATELET VOLUME 9.4 fL (7.4-10.4); MONOCYTES 4.6 % (2-11); NEUTROPHILS 87.7 % (40-80); PLATELET COUNT 191 10x3/uL (130-400); RBC 3.27 10x6/uL (4.20-6.10); RDW 15.1 % (11.5-14.5); WBC 13.3 10x3/uL (4.8-10.8)
[2018-09-09 06:26] LABS: ANION GAP 16.8 mmol/L (8-16); CALCIUM 8.7 mg/dL (8.5-10.1); CARBON DIOXIDE 26.3 mmol/L (21.0-32.0); CREATININE - SERUM 4.4 mg/dL (0.6-1.3); POTASSIUM - SERUM 4.1 mmol/L (3.5-5.1)
[2018-09-09 06:43] LABS: PROTIME 28.5 SECONDS (11.6-15.0)
[2018-09-09 06:44] LABS: APTT 79.8 SECONDS (22.8-39.4); INR 2.76 (0.85-1.17)
--- NOTE | 2018-09-09 07:34 | NUR ---
AWAKE NODING HEAD TO YES AND NO QUESTIONS. OBEYS COMMANDS, HARD OF HEARING. HANDS AND FEET ICE COLD. RIJ CVL INFUSING WITH ARGATROBAN AT 0.7 MCG/KG/MIN. LIJ TRIALYSIS DIALYSIS CATH DRESSING DRY AND INTACT. BERTHA SERSANG DRAINAGE CHEST DRESSINGS DRY AND INTACT. PACER WIRES IN LAB TUBE ON TOP OF DRESSING. GOOD COUGH. MONITOR PACER RHYTHM IRREGULAR.DENIES PAIN. SCD AND DAVON HOSE ON. HEAD OF BED ELEVATED 30. ON BIPAP.NO DISTRESS NOTED. FIRST AIR MATTRESS ON BED
--- NOTE | 2018-09-09 08:34 | NUR ---
BI PAP REMOVED. PLACED ON 4 LITERS NC. TOLERATED FAIR. HERE STATES TO MAINTAIN PULSE OF GREATER THAN 90%. START INCENTIVE SPRIOMETRY. GOOD COUGH TEACHING ON YANKEUR SUCTION AND INCENTIVE. NODES HEAD, BUT NO RETURN DEMOSTRATION. REPOSTIONED UP IN BED AND TURNED TO RIGHT SLIGHTLY. BERTHA DRAIN EMPTIED. PULSE OX 91-92%
--- NOTE | 2018-09-09 08:40 | NUR ---
DR. BEARD HERE UPDATE PROVIDED. STATES OK TO GET UP IN CHAIR IF PATEINT TOLERATES PER PHYSICAL THERAPY
--- NOTE | 2018-09-09 09:20 | NUR ---
UP IN CHAIR AT BEDSIDE PER PHYSICAL THERAPY. TOTAL LIFT. COUGHING IMPROVED. PULSE OX 96%. NAPPING AT INTERVALS.
--- NOTE | 2018-09-09 09:41 | NUR ---
TOLERATING UP IN CHAIR FAIR. GOOD COUGH. RESP DEEP AND REGULAR. PULSE OX 96%. TALKING SOFTLY.
--- NOTE | 2018-09-09 09:52 | NUR ---
CALL THERAPY ASKED ABOUT SPEECH THERAPY SEEING PATIENT. WILL CALL ME BACK
--- NOTE | 2018-09-09 11:22 | NUR ---
VOIDED 475 ML OF DARK CONCENTRATED URINE.
--- NOTE | 2018-09-09 12:19 | NUR ---
PATIENT PULLED UP IN BED AND REPOSITIONED. GOOD COUGH. KEEPS TAKING HIS OXYGEN OFF. REINFORCED IMPORTANCES OF WEARING HIS OXYGEN.
--- NOTE | 2018-09-09 13:03 | NUR ---
NUTRITION F/U CHART REVIEWED, PT VISIT. AWAITING SWALLOW EVAL. WILL PROVIDE DIET PER SPEECH REC'S, MONITOR PO INTAKE. RD FOLLOWING
--- NOTE | 2018-09-09 14:02 | NUR ---
BARBARA SPEECH THERAPIST, HERE SWALLOW EVAL COMPLETED. STATES PATIENT IS ONLY HALF SWALLOWING, NEED TO KEEP PATIENT NPO. DR. ROWELL NOTIFIED. STATES TO LEAVE PATIENT NPO TONIGHT, NO NG TUBE AT THIS TIME.
--- NOTE | 2018-09-09 14:09 | NUR ---
IS HERE. OT IS WORKING WITH PATIENT
--- NOTE | 2018-09-09 15:00 | NUR ---
REVIEWED AND DISCUSS CONSENTS FOR DIALYSIS ACCESS PLACEMENT BY DR. BEARD TOMORROW. STATES DRMillie HAS DISCUSS THIS WITH HER. CONSENTS SIGNED BY QUESTIONS ANSWERED. PATIENT TOO WEAK TO SIGN.
--- NOTE | 2018-09-09 15:42 | NUR ---
INCENTIVE TO 250 ML IMPROVED FROM THIS AM. GOOD COUGH, STILL SWALLOWING. DENIES PAIN. VENESSA DRAIN EMPTIED 30 ML SERSANG. SOME SHORTNESS OF BREATH PULSE OX 95%.
--- NOTE | 2018-09-09 16:55 | NUR ---
DIALYSIS IN PROGRESS TOLERATING WELL
--- NOTE | 2018-09-09 16:58 | NUR ---
OT NOTE: PT COMPLETED UE AAROM FOR INCREASED FUNCTIONAL USE AND INDEPENDENCE WITH SUCTIONING. PT COMPLETED POSITIONING WITH MAX A. PT SPEAKS VERY SOFTLY. PT EDUCATED ON THE USE OF CALL LIGHT. THANK YOU, MATILDA LOWE
--- NOTE | 2018-09-09 18:00 | NUR ---
DIALYSIS IN PROGRESS TOLERATING FAIR. NO DISTRESS. PULSE UP AND DOWN 90-95%. DOES GET SHORT OF BREATH EASILY.
--- NOTE | 2018-09-09 19:13 | NUR ---
PT RECEIVED WITH EYES OPEN. DIALYSIS IN ROOM AT THIS TIME. VSS. ALERT AND FOLLOWS COMMANDS. NO S/S OF DISTRESS. RIGHT IJ CVL PATENT. LEFT IJ TRIALYSIS PATENT. NO CONCERNS NOTED AT THIS TIME. WILL CONTINUE TO OBSERVE.
--- NOTE | 2018-09-09 19:50 | NUR ---
DR BEARD CALLED PER NURSING MESSAGE AFTER HD COMPLETED. REPORTED PT TOLERATED HD WELL. DR BEARD ORDERED TO STOP ARGATROBAN AND ARGATROBAN IS STOPPED AT THIS TIME.
--- NOTE | 2018-09-09 22:12 | NUR ---
WILDE PLACED PER ORDERS. PT TOLERATED WELL. DARK URINE NOTED. WILL CONTINUE TO OBSERVE.
--- NOTE | 2018-09-09 23:42 | NUR ---
PT WITH EYES CLOSED AND CHEST RISING. AWAKENS TO ROOM ENTRY. NO S/S OF DISTRESS. VSS. REASSESSMENT COMPLETED, SEE FLOW SHEET. WILL CONTINUE TO OBSERVE
[2018-09-10] VITALS (28 sets, daily range): BP systolic 119–154; BP diastolic 57–87
[2018-09-10 00:06] LABS: APPEARANCE CLOUDY (CLEAR); COLOR YELLOW (YELLOW); NITRITE NEGATIVE (NEGATIVE); PROTEIN 3+ mg/dL (NEGATIVE); SPECIFIC GRAVITY 1.015 (1.005-1.020)
[2018-09-10 00:07] LABS: BILIRUBIN NEGATIVE (NEGATIVE); GLUCOSE NEGATIVE (NEGATIVE); KETONE NEGATIVE (NEGATIVE); UROBILINOGEN NORMAL (NORMAL)
[2018-09-10 00:08] LABS: BACTERIA MODERATE /hpf (NONE SEEN); EPITHELIAL CELLS 0-5 /hpf (0-5)
--- NOTE | 2018-09-10 01:09 | NUR ---
PT RESTING WITH EYES CLOSED AND CHEST RISING. NO S/S OF DISTRESS. VSS. WILL CONTINUE TO OBSERVE.
--- NOTE | 2018-09-10 02:50 | NUR ---
PT ATTEMPTING TO REMOVE BIPAP MASK, BY SLIDING IT OFF. SEAL REMAINS AND ALARM DOES NOT SOUND. SPO2 BEGINS TO DROP TO <92% WITH MASK REPOSITIONED FOR FUNCTION AND COMFORT. WILL CONTINUE TO OBSERVE.
--- NOTE | 2018-09-10 05:21 | NUR ---
CHG BATH GIVEN. PT INCONTINENT OF BOWEL, SOFT BROWN. PERICARE PROVIDE AND WASHED WITH BATH. NEW LINENS AND PAD PROVIDED. PT WITH EYES CLOSED AND CHEST RISING AT THIS TIME. WILL CONTINUE TO OBSERVE.
[2018-09-10 06:12] LABS: BASOPHILS 0.4 % (0-2); EOSINOPHILS 0 % (0-7); HEMATOCRIT 30.6 % (42.0-54.0); HEMOGLOBIN 10.1 g/dL (13.5-17.5); IMMATURE GRANULOCYTES 1.7 % (0-5); LYMPHOCYTES 4.3 % (15-50); MCH 29.4 pg (26.0-34.0); MEAN PLATELET VOLUME 9.5 fL (7.4-10.4); MONOCYTES 4.7 % (2-11); NEUTROPHILS 88.9 % (40-80); PLATELET COUNT 185 10x3/uL (130-400); RBC 3.44 10x6/uL (4.20-6.10); WBC 13.1 10x3/uL (4.8-10.8)
[2018-09-10 06:26] LABS: ANION GAP 19.7 mmol/L (8-16); CALCIUM 9.1 mg/dL (8.5-10.1); CARBON DIOXIDE 24.8 mmol/L (21.0-32.0); CREATININE - SERUM 3.8 mg/dL (0.6-1.3); POTASSIUM - SERUM 4.5 mmol/L (3.5-5.1)
--- NOTE | 2018-09-10 07:18 | NUR ---
LYING IN BED ON BIPAP AT THIS TIME. NO ACUTE DISTRESS NOTED. PT NODS AND SHAKES HEAD AND FOLLOWS COMMANDS WHEN SPOKEN TO. TURNED Q2H. VSS. WILL CONTINUE PLAN OF CARE.
--- NOTE | 2018-09-10 09:09 | NUR ---
OT NOTE: MAX ASSIST WITH BED MOB; PHYS THERAPY TRANSFERRED TO CHAIR WITH TOTAL ASSIST; POOR TRUNK STRENGTH IN CHAIR, PT REQUIRED PILLOW FOR POSITION UP IN CHAIR. VOICE REMAINS WEAK. CONT WITH TOTAL ASSIST FOR ADLS INCLUDING TOILET HYGIENE. SAUNDRA DUNHAM, OTR/L
--- NOTE | 2018-09-10 09:16 | NUR ---
UP IN CHAIR WITH ASSIST FROM PHYSICAL THERAPY. INCONTINENT SMALL BROWN BOWEL MOVEMENT NOTED DURING TRANSFER. TOTAL LINEN CHANGE AND CRISS CARE/WILDE CARE PROVIDED. FAMILY AT BEDSIDE. NO ACUTE DISTRESS NOTED. WILL CONTINUE PLAN OF CARE.
--- NOTE | 2018-09-10 09:18 | NUR ---
PT NOTED TO QUIETLY SPEAK ONE WORD ANSWERS AT TIMES SUCH WHEN ASKED HOW HE WAS FEELING HE STATED, "ROUGH." DENIES ANY NEEDS. WILL CONTINUE PLAN OF CARE.
--- NOTE | 2018-09-10 10:24 | NUR ---
PER SPEECH, PUREE WITH THIN LIQUIDS. ALSO PT ASSITED BACK TO BED WITH PHYSICAL THERAPY ASSIST.
--- NOTE | 2018-09-10 10:42 | NUR ---
RT IJ CVL DCD BY DR MCMAHAN NURSE, PRESSURE DRESSING IN PLACE. NO S/S BLEEDING. CVL DISCONNECTED PER VERBAL ORDER. ALSO PER DR MCMAHAN NURSE OKAY TO USE LT IJ TRIALYSIS FOR ADMIN MEDICATIONS IF NEEDED. NO ACUTE DISTRESS NOTED. VSS. WILL CONTINUE PLAN OF CARE.
--- NOTE | 2018-09-10 11:12 | NUR ---
LYING IN BED AWAKE AT THIS TIME. NO ACUTE DISTRESS NOTED. VSS. AT BEDSIDE. PT NOTED TO SPEAK AT TIMES HOWEVER ANSWERS ARE ONE WORDED AND PT ONLY MOUTHS ANSWERS, UNABLE TO DETERMINE PTS ORIENTATION STATUS SINCE PT IS TOO WEAK TO SPEAK LOUDLY ENOUGH TO HEAR PTS RESPONSES. PT ABLE TO ANSWER YES/NO QUESTIONS AND FOLLOW COMMANDS. WILL CONTINUE PLAN OF CARE.
--- NOTE | 2018-09-10 13:55 | NUR ---
LYING IN BED RESTING AT THIS TIME, RESPIRATIONS STEADY AND UNLABORED RATE. NO ACUTE DISTRESS NOTED. AWAKENS EASILY WHEN SPOKEN TO. AT BEDSIDE. BIPAP IN PLACE. TURNED Q2H. ORAL CARE PROVIDED Q2H. PT USES INCENTIVE SPIROMETER QH, ATTEMPT NOTED UP TO 500. VSS. WILL CONTINUE PLAN OF CARE.
--- NOTE | 2018-09-10 15:04 | NUR ---
NO ACUTE DISTRESS NOTED. NO CHANGE. PT LYING IN BED ON BIPAP AT THIS TIME, AT BEDSIDE. CALL LIGHT IN REACH. VSS. WILL CONTINUE PLAN OF CARE.
--- NOTE | 2018-09-10 16:00 | NUR ---
LEFT TO OR VIA BED WITH HOSPITAL STAFF. NO ACUTE DISTERSS NOTED. VSS. PTS AWARE.
--- NOTE | 2018-09-10 17:25 | NUR ---
PT RETURNED FROM OR AT THIS TIME VIA BED ACCOMPANIED BY HOSPITAL STAFF. NO ACUTE DISTRESS NOTED. PER OR STAFF TPM WIRES HAVE BEEN DCD, BERTHA DRAIN STILL IN PLACE. FAMILY AT BEDSIDE. UPDATES PROVIDED BY DR BEARD. ALL QUESTIONS AND CONCERNS ADRESSED. BIPAP PLACED. PER DR BEARD CAN DC LT IJ TRIALYSIS IN 2 HOURS. VSS. WILL CONTINUE PLAN OF CARE.
--- NOTE | 2018-09-10 19:15 | NUR ---
Received patient sleeping in bed with eyes closed, assessment completed per flowsheet. Patient opens eyes sponataneously, disoriented to time/place/situation. S1/S2 noted Controlled Afib with 100% A/V pacing noted on telemetry. Breathing is shallow on BiPAP 40% with O2 sat 97%, lung sounds diminished throughout. Midline sternum incision dressing CDI, Substernal Rafa x1 with small serous drainage. R subclavian hemosplit dressing CDI, heparin locked. Abdomen is distended with bowel sounds active x4, non-tender. López secured, concentrated urine noted. R leg harvest sites x3 open to air, well approximated with no bleeding/drainage noted. All pulses palpable with cap refill < 3 sec, skin warm/dry. Repositioned for comfort, no further needs at this time. See flowsheet for details, all VSS and will continue to monitor.
--- NOTE | 2018-09-10 19:24 | NUR ---
PER DR BEARD, PT WAS NOT IN HEPARIN INDUCED THROMBOCYTOPENIA PER LAB RESULTS. PHYSICIAN STATED OKAY TO REMOVE HEPARIN FROM ALLERGIES SINCE RESULTS DID NOT SHOW POSITIVE FOR HIT.
--- NOTE | 2018-09-10 21:00 | NUR ---
Patient resting in bed with eyes closed on BiPAP 40%, no s/s of distress at this time. HS meds given without difficulty, at bedside for visitation. Discussed current status/treatment plans, all questions answered to satisfaction. No further needs, all VSS and will continue to monitor.
--- NOTE | 2018-09-10 22:15 | NUR ---
L IJ trialysis removed per orders with Alexei RN at bedside, removed without difficulty with cath tip intact. Pressure held for 5 min with no bleeding noted, pressure bag applied for additional 5 min.
--- NOTE | 2018-09-10 23:00 | NUR ---
Reassessment completed per flowsheet, no changes noted from previous assessment. S1/S2 noted Controlled Afib with 100% A/V pacing noted on telemetry. Breathing is shallow on BiPAP 40% with O2 sat 96%, lung sounds diminished throughout. Midsternal/substernal dressing CDI, Rafa drain x1 with small serous drainage noted. All pulses palpable with cap refill < 3 sec, skin warm/dry. Denies pain or other needs at this time, see flowsheet for details. All VSS and will continue to monitor.
[2018-09-11] VITALS (24 sets, daily range): BP systolic 99–157; BP diastolic 50–78
--- NOTE | 2018-09-11 01:00 | NUR ---
Patient sleeping in bed with eyes closed on BiPAP, arouses to voice and nods appropriately. Repositioned for comfort, no further needs and will continue to monitor.
--- NOTE | 2018-09-11 03:10 | NUR ---
Reassessment completed per flowsheet, no changes noted from previous assessment. S1/S2 noted Controlled Afib with 100% A/V pacing on telemetry. Breathing is shallow on BiPAP 40% with O2 sat 98%, lung sounds diminished throughout. Midsternal/Substernal incision dressing CDI, Substernal Rafa x1 with small serous drainage. All pulses palpable with cap refill < 3 sec, skin warm/dry. Repositioned for comfort, denies pain or other needs at this time. See flowsheet for details, all VSS and will continue to monitor.
[2018-09-11 04:57] LABS: BASOPHILS 0.7 % (0-2); EOSINOPHILS 0 % (0-7); HEMATOCRIT 28.8 % (42.0-54.0); HEMOGLOBIN 9.6 g/dL (13.5-17.5); IMMATURE GRANULOCYTES 1.6 % (0-5); LYMPHOCYTES 6.3 % (15-50); MCH 29.4 pg (26.0-34.0); MCHC 33.3 g/dL (31.0-37.0); MCV 88.3 fL (80.0-100.0); MEAN PLATELET VOLUME 9.1 fL (7.4-10.4); MONOCYTES 5.6 % (2-11); NEUTROPHILS 85.8 % (40-80); PLATELET COUNT 185 10x3/uL (130-400); RBC 3.26 10x6/uL (4.20-6.10); RDW 14.9 % (11.5-14.5)
[2018-09-11 05:02] LABS: ANION GAP 19.1 mmol/L (8-16); CALCIUM 8.9 mg/dL (8.5-10.1); CARBON DIOXIDE 24.2 mmol/L (21.0-32.0); POTASSIUM - SERUM 4.3 mmol/L (3.5-5.1)
[2018-09-11 05:03] LABS: CREATININE - SERUM 5.1 mg/dL (0.6-1.3)
--- NOTE | 2018-09-11 05:10 | NUR ---
Patient sleeping in bed on BiPAP 40%, no s/s of distress at this time. Repositioned for comfort, no further needs and will continue to monitor.
--- NOTE | 2018-09-11 08:44 | OP ---
PATIENT NAME: MALINDA FAN JR MEDICAL RECORD: [id number] :37 LOCATION:D.CVI D.CV02 ADMISSION DATE:08/27/18 SURGEON: DRU BEARD MD DATE OF OPERATION: 09/10/2018 SURGEON: Dru Beard MD BOWL TURNER: Enoch Garcia. OPERATION PERFORMED: Insertion of tunneled dialysis access catheter via right subclavian vein. INDICATION: Chronic kidney failure with hemodialysis. COMPLICATIONS: None. BLOOD LOSS: Minimal. SPECIMENS: None. CONDITION: Stable. DISPOSITION: CV ICU. OPERATIVE FINDINGS: Good blood return and good flush with good position by fluoroscopy. DESCRIPTION OF PROCEDURE: The patient was brought to the operating suite with general anesthetic, given local in the right anterior chest. After prepping the right subclavian vein was cannulated, guidewire was passed under fluoroscopic control and the skin incision was enlarged. Sequential dilators were passed. The dilator and introducer system were passed into the superior vena cava. The tunneled dialysis access catheter was placed in the appropriate position with good blood return. Catheter was sutured into place with the cuff just below the skin level. No apparent complications. The patient returned to the ICU in stable condition. TRANSINT:[id number] Voice Confirmation ID: [id number] DOCUMENT ID: [id number] DRU BEARD MD at 0844 CC: MACIEL HADLEY MD [id number] DICTATION DATE: 09/10/181816 PRINTED CIRCUIT BOARD PANELS DEBURRER: 09/10/18 1848 ADM IN [place] [id number] [place] [address]
[2018-09-11 12:41] LABS: HEPARIN INDUCED PLATELET AB 0.164
--- NOTE | 2018-09-11 12:58 | NUR ---
DIALYSIS COORDINATOR: MARVIN - IN PATIENT ONLY AT THIS TIME. NO ORDERS REGARDING OPHD PLACEMENT NEEDS AT THIS TIME. ASHLEY GONZALEZ.
--- NOTE | 2018-09-11 13:01 | NUR ---
Nutrition Follow Up: Pt was asleep and receiving HD at the time of RD visit. Interview deferred at this time. Diet: Regular Pureed with Thin Liquids I<O BM: 09/10/18 Labs and meds reviewed Rec continue current diet. RD following.
--- NOTE | 2018-09-11 16:13 | MORECARE ---
CASE MANAGEMENT DISCHARGE SUMMARY PATIENT: MALINDA FAN JR UNIT: [id number] ADM DATE: 08/27/18 AGE: 82 : 36 SEX: M ROOM/BED: D.[facility] AUTHOR: AC,FRANKIE PHYSICIAN: REFERRING PHYSICIAN: AMANDO HORNER M.D. 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 THEY ARE INTERESTED IN [facility]. I SPOKE TO NURSE ABOUT [facility] REFERRAL AND SHE STATES DR. BEARD WOULD BE FINE WITH ME ORDERING IT. NURSE IS HERBERT IN CVICU. CM TO FOLLOW AND ASSIST NEEDED. 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 CM WILL FOLLOW AND ASSIST NEEDED WITH DC PLANNING/NEEDS. FAMILY WANTS [facility], CM WAITING TO SEE IF PATIENT WILL BE APPROPRIATE FOR [facility]. Masonry Instructor: Roya Lees DCP- Discharge Planning Updated by [email or web address]: Lenore Knapp on 08/27/18 4:[address] Patient Name: MALINDA FAN Admission Status: Elective Accout number: [id number] Admission Date: 08-27-2018 : 1935 Admission Diagnosis: Attending: AMANDO HORNER Current LOS: 1 Anticipated DC Date: Planned Disposition: Home Primary Insurance: MEDICARE A & B Discharge Planning Comments: CM met with patient and spouse (Priti) at bedside after explaining CM role and obtaining verbal consent. Patient lives at home with his Steffi and plans to return there upon discharge. Patient feels this would be a safe discharge. CM discussed availability / needs of home health and medical equipment. Patient states that he has CPAP. Patient denies any discharge needs at this time. Patient states he will have his drive him home upon discharge. CM will continue to follow and assist as needed with discharge planning / needs. Masonry Instructor: Lenore Knapp DCPIA - Discharge Planning Initial Assessment Updated by [id number]: Lenore Knapp on 08/27/18 5:46 pm * Is the patient Alert and Oriented? Yes * How many steps to enter\exit or inside your home? * PCP DESTIN * Pharmacy [facility] * Preadmission Environment Home with Family * ADLs Independent * Equipment CPAP * List name and contact numbers for known caregivers / representatives who currently or will assist patient after discharge: PRITI FAN - - [phone], * Verbal permission to speak to the caregivers and representatives has been obtained from the patient. Yes * Community resources currently utilized None * Additional services required to return to the preadmission environment? No * Can the patient safely return to the preadmission environment? Yes * Has this patient been hospitalized within the prior 30 days at any hospital? No Last DP export: 09/08/18 10:46 am Patient Name: MALINDA FAN Page [id number] at 1613 All edits/amendments must be made on the electronic document DICTATION DATE: 09/11/185 TITLE CAMERA OPERATOR: TANYA 09/11/18 1613 RPT#: [id number] DC DATE: STATUS: ADM IN [facility] [address] [place] [address] END OF REPORT
--- NOTE | 2018-09-11 20:00 | NUR ---
REPORT RECEIVED INITIAL ASSESSMENT COMPLETE SEE FLOWSHEETS PT ALERT FOLLOWS COMMANDS CM READING AFIB CONTROLLED ALARMS ON AND AUDIBLE. O2 SAT 98% VSS CPOC
--- NOTE | 2018-09-11 23:00 | NUR ---
REASSESSMENT MADE PT STATES STILL HURTING SEE EMAR FOR PRN
[2018-09-12] VITALS (22 sets, daily range): BP systolic 107–152; BP diastolic 50–81
--- NOTE | 2018-09-12 03:00 | NUR ---
REASSESSMENT MADE NO CHANGES
[2018-09-12 06:01] LABS: BASOPHILS 0.7 % (0-2); EOSINOPHILS 0 % (0-7); HEMATOCRIT 30.3 % (42.0-54.0); HEMOGLOBIN 10.1 g/dL (13.5-17.5); IMMATURE GRANULOCYTES 1.1 % (0-5); LYMPHOCYTES 5.6 % (15-50); MCH 29.1 pg (26.0-34.0); MCHC 33.3 g/dL (31.0-37.0); MCV 87.3 fL (80.0-100.0); MEAN PLATELET VOLUME 8.9 fL (7.4-10.4); MONOCYTES 7.8 % (2-11); NEUTROPHILS 84.8 % (40-80); PLATELET COUNT 162 10x3/uL (130-400); RBC 3.47 10x6/uL (4.20-6.10); RDW 14.7 % (11.5-14.5); WBC 10.5 10x3/uL (4.8-10.8)
[2018-09-12 06:27] LABS: CALCIUM 8.8 mg/dL (8.5-10.1); CARBON DIOXIDE 25.9 mmol/L (21.0-32.0); CREATININE - SERUM 4.4 mg/dL (0.6-1.3); POTASSIUM - SERUM 3.9 mmol/L (3.5-5.1)
--- NOTE | 2018-09-12 06:30 | NUR ---
PT C/O PAIN SEE EMAR PRN MEDS
--- NOTE | 2018-09-12 17:22 | NUR ---
PT AT SIDE OF BED FOR DINNER TRAY-FAMILY AT BEDSIDE AND ASSISTED PT 6840-RETURNED TO [facility]
--- NOTE | 2018-09-12 19:08 | NUR ---
REPORT RECEIVED, SHIFT ASSESSMENT COMPLETED PER FLOW SHEET. CONFUSED, REORIENTATION PROVIDED. PATIENT SLOW TO RESPOND WHEN ASKING QUESTIONS BUT ABLE TO STATE HIS NAME, , AND IS ORIENTED TO SITUATION. SEE FLOW SHEET FOR COMPLETE ASSESSMENT. CALL LIGHT WITHIN REACH. WILL CONTINUE TO MONITOR.
--- NOTE | 2018-09-12 21:41 | NUR ---
SCHEDULED MEDS GIVEN, SEE EMAR FOR DETAILS. NO TROUBLE SWALLOWING MEDS.
--- NOTE | 2018-09-12 23:01 | NUR ---
REASSESSMENT COMPLETED PER FLOW SHEET, SEE FOR DETAILS. NO ACUTE DISTRESS NOTED. REMAINS CONFUSED, REORIENTATION PROVIDED. WILL CONTINUE TO MONITOR. CALL LIGHT WITHIN REACH.
[2018-09-13] VITALS (24 sets, daily range): BP systolic 133–167; BP diastolic 63–85
--- NOTE | 2018-09-13 01:00 | NUR ---
REPOSITIONED IN BED, NO ACUTE CHANGES NOTED, WILL CONTINUE TO MONITOR.
--- NOTE | 2018-09-13 03:01 | NUR ---
REASSESSMENT COMPLETED PER FLOW SHEET, SEE FOR DETAILS. REMAINS CONFUSED, REORIENTATION PROVIDED. COMPLETE BED BATH GIVEN, COMPLETE BED LINEN CHANGE PROVIDED, WILDE CARE PROVIDED. REPOSITIONED IN BED. WILL CONTINUE TO MONITOR.
--- NOTE | 2018-09-13 05:00 | NUR ---
XR PERSONNEL AT BEDSIDE FOR AM CHEST XR. PATIENT CALM AND COOPERATIVE.
--- NOTE | 2018-09-13 05:30 | NUR ---
SUBSTERNAL DRESSING CHANGED.
[2018-09-13 06:01] LABS: BASOPHILS 0.3 % (0-2); EOSINOPHILS 0 % (0-7); HEMATOCRIT 30.7 % (42.0-54.0); HEMOGLOBIN 10.1 g/dL (13.5-17.5); IMMATURE GRANULOCYTES 1.1 % (0-5); LYMPHOCYTES 4.7 % (15-50); MCH 28.8 pg (26.0-34.0); MCHC 32.9 g/dL (31.0-37.0); MCV 87.5 fL (80.0-100.0); MEAN PLATELET VOLUME 9.3 fL (7.4-10.4); MONOCYTES 7.9 % (2-11); PLATELET COUNT 163 10x3/uL (130-400); RBC 3.51 10x6/uL (4.20-6.10); RDW 14.7 % (11.5-14.5); WBC 11.7 10x3/uL (4.8-10.8)
[2018-09-13 06:25] LABS: ANION GAP 19.3 mmol/L (8-16); CALCIUM 8.9 mg/dL (8.5-10.1); CREATININE - SERUM 5.5 mg/dL (0.6-1.3); POTASSIUM - SERUM 4.3 mmol/L (3.5-5.1)
--- NOTE | 2018-09-13 08:58 | NUR ---
UP TO CHAIR WITH PHYSICAL THERAPY
--- NOTE | 2018-09-13 13:29 | NUR ---
4115-DR HADLEY AT BEDSIDE AND SPOKE WITH PT AND REGARDING PLAN OF RENAL CARE AND PROBABLE EXPECTATIONS 1300-PHYSICAL THERAPY AT BEDSIDE->90% ASSIST REQUIRED TO BED
--- NOTE | 2018-09-13 16:10 | NUR ---
1330-DR BEARD AT BEDSIDE-STATUS REPORT GIVEN 1430-DR ANTONIO AT BEDSIDE-PT RESTLESS-CALLING OUT-PHYSICAL THERAPY ASSISTED WITH REPOSITIONING 1515-CONT RESTLESS-CALLING OUT -PT NODDED YES WHEN ASKED IF CHEST HURTING-NOT ABLE TO FURTHER ARTICULATE-NORCO 5MG PO GIVEN 1600- AT BEDSIDE-TO ASSIST WITH DINNER TRAY
--- NOTE | 2018-09-13 16:59 | NUR ---
ASSISTEED TO SIDE OF BED FOR DINNER-REQUIRED INCREASED ASSISTANCE- PRESENT-NOTED INCREASED LETHARGY
--- NOTE | 2018-09-13 17:16 | NUR ---
ASSISTING PT WITH MEAL-ABLE TO SIT EASILY AT SIDE OF BED
--- NOTE | 2018-09-13 17:17 | NUR ---
Rehab Note- Acute INpatient Rehab prescreen order received. Will follow the patient at this time as he is still having acute work up. Thank you for this referral! Magi Stinson RN CLinical Liaison, [facility] Re[facility]
--- NOTE | 2018-09-13 19:15 | NUR ---
PT RECEIVED WITH EYES OPEN. YELLING OUT. SOME CONFUSION NOTED. COMPLAINS OF PAIN WITH PRN PAIN MEDICATION GIVEN PER MAY. SWOLLOWED WITHOUT DIFFICULTY. PT REPOSITIONED PRIOR TO ADMINISTRATION OF PAIN MEDICATION, AND HOB ELEVATED FOR EASIER SWOLLOWING. NO OTHER NEEDS MADE KNOWN AT THIS TIME. WILL CONTINUE TO OBSERVE.
--- NOTE | 2018-09-13 21:30 | NUR ---
PT RECEIVED ALL HS MEDICATIONS WITHOUT DIFFICULTY. B/P ELEVATED PUT PT RAISES ARMS OR MOVES ARM WHEN CUFF INFLATES. REMIND PT TO RELAX ARM WHEN INFLATING. WILL CONTINUE TO OBSERVE.
[2018-09-14] VITALS (22 sets, daily range): BP systolic 109–177; BP diastolic 63–120
--- NOTE | 2018-09-14 01:08 | NUR ---
PT YELLING OUT. B/P ELEVATED RENAL PAGED AT 9495 NO RESPONSE AND HAS BEEN REPAGED. PT SLIDING FEET OUT OF BED AND ASSISTED WITH THEM PLACE IN BED. OXIMIZER COMING OFF AND/OR PT TAKING IT OFF, SPO2 DROPS TO MID 80'S QUICKLY AND OXIMIZER REPLACED SPO2 SLOW TO RESPOND AND RATE INCREASED TO 3.5 LPM AND IS AT SPO2 93-95. PT CALM AT THIS TIME. WILL CONTINUE TO OBSERVE.
--- NOTE | 2018-09-14 01:56 | NUR ---
DR. HADLEY CALLED ON CELL AT 0115 WITH NO ANSWER OR RETURN CALL AT THIS TIME. B/P DECREASING SLIGHTLY. WILL CONTINUE TO OBSERVE.
--- NOTE | 2018-09-14 02:01 | NUR ---
PT SHIFTING BODY POSITION WITH LEGS HANGING OF SIDE OF BED AND BEGINS YELLING OUT. PT PULLED UP IN BED AND STRAIGHTENED UP IN BED. PT CALM AT THE MOMENT. WILL CONTINUE TO OBSERVE.
[2018-09-14 04:45] LABS: BASOPHILS 0.4 % (0-2); EOSINOPHILS 0 % (0-7); HEMATOCRIT 29.6 % (42.0-54.0); IMMATURE GRANULOCYTES 0.9 % (0-5); LYMPHOCYTES 4.8 % (15-50); MCH 29.1 pg (26.0-34.0); MCHC 33.8 g/dL (31.0-37.0); MEAN PLATELET VOLUME 9.3 fL (7.4-10.4); MONOCYTES 4.7 % (2-11); NEUTROPHILS 89.2 % (40-80); PLATELET COUNT 159 10x3/uL (130-400); RBC 3.44 10x6/uL (4.20-6.10); RDW 14.8 % (11.5-14.5); WBC 11.2 10x3/uL (4.8-10.8)
[2018-09-14 05:12] LABS: ALBUMIN 2.8 g/dL (3.4-5.0); ANION GAP 18.9 mmol/L (8-16); BILIRUBIN - TOTAL 0.62 mg/dL (0.2-1.3); CALCIUM 8.8 mg/dL (8.5-10.1); CARBON DIOXIDE 24.8 mmol/L (21.0-32.0); CREATININE - SERUM 6.2 mg/dL (0.6-1.3); POTASSIUM - SERUM 4.7 mmol/L (3.5-5.1); PROTEIN - SERUM 6.9 g/dL (6.4-8.2)
[2018-09-14 05:18] LABS: PHOSPHOROUS 9.4 mg/dL (2.5-4.9)
--- NOTE | 2018-09-14 05:31 | NUR ---
PT TURNING TO GET FEET OVER SIDE RAIL. PT STOPPED AND STRAIGHTENED UP IN BED. CHG BATH GIVEN WITH LINEN CHANGE. SUBSTERNAL DRESSING CHANGED WITH BERTHA DRAIN X1. PT CONTINUES TO MOVE ARM WITH B/P CUFF COMPRESSIONS. WILL CONTINUE TO OBSERVE.
--- NOTE | 2018-09-14 06:15 | NUR ---
PT ATTEMPTING TO HANG FEET OF SIDE OF BED. PT STRAIGHTED AND PULLED UP. SPO2 BEGAN TO DROP TO MID 80'S. SPO2 SENSOR MOVED FOR BETTER READING WITH NO CHANGE NOTED. OXIMIZER RATE INCREASED WITH NO CHANGE NOTED. PT PLACED ON BIPAP WITH SPO2 AT 93 AT THIS TIME. WILL CONTINUE TO OBSERVE
--- NOTE | 2018-09-14 07:00 | NUR ---
PT RESTING IN BED C CALL MITCHELL IN REACH. VSS. PACED RHYTHM. ON BIPAP AT 40% FIO2. VSS. WILL CONTINUE TO MONITOR
--- NOTE | 2018-09-14 08:30 | NUR ---
SHARYN ECHEVARRIA REMOVED MIDSTERNAL BERTHA DRAIN AT THIS TIME.
--- NOTE | 2018-09-14 08:55 | NUR ---
ORDERS TO HOLD MORNING MEDS DUE TO PATIENT LETHARGY--PROBABLY FROM [place] GIVEN LAST NIGHT. PATIENT UNABLE TO STAY AWAKE AFTER BEING WOKEN. WILL TRY TO ADMINISTER MEDICATION LATER TODAY.
--- NOTE | 2018-09-14 09:45 | NUR ---
NUTRITION F/U PUREED DIET, NO INTAKE THIS AM PT NOT ALERT. SPOUSE AT BEDSIDE. WILL CONTINUE TO PROVIDE CURRENT DIET, MONITOR PO INTAKE, PT PROGRESS. RD FOLLOWING
--- NOTE | 2018-09-14 10:15 | NUR ---
PAGED DR. VANN ABOUT NEED FOR BIPAP DUE TO DESATURATION. OBTAINED ORDER FOR ABG.
--- NOTE | 2018-09-14 11:59 | NUR ---
DIALYSIS COORDINATOR: PER CONVERSTAION WITH AMOS DOVE: I NEED TO KNOW ARIEL WHAT THE DISCHARGE DISPOSITION IS FOR THIS PATIENT. IF THE [facility], OR ANY OTHER ACUTE IN-PATIENT REHAB, THEN OPHD PLACEMENT WOULDN'T NEED TO BE SET UP UNTIL TIME FOR THE PATIENT TO BE DISCHARGED FROM THE REHAB. IF PATIENT DISCHARGES TO AN LTACH, OPHD DOESN'T NEED TO BE ARRANGED PRIOR TO DISCHARGE FROM THIS HOSPITAL. OPHD ARRANGEMENTS ONLY NEED TO BE MADE PRIOR TO THIS DISCHARGE IF THIS PATIENT IS DISCHARGING TO A SNF. PLEASE NOTIFY ME ARIEL REGARDING THIS PATIENT'S NEEDS. THANK YOU, SEAN HENDERSON DIALYSIS COORDINATOR [facility] ([phone])
--- NOTE | 2018-09-14 14:00 | NUR ---
DIALYSIS COMPLETE. 3 LITERS REMOVED. PATIENT IS MORE AWAKE AND ALERT NOW.
--- NOTE | 2018-09-14 14:14 | NUR ---
PT TX COMPLETE. BLOOD RETURNED. 3L FLUID OFF. RESP COUNT WENT FROM 22 DOWN TO 16/MIN. HAD TO HAVE BIPAP ON AT BEGINNING, BUT WAS ABLE TO GO BACK TO OXIMIZER AT 4L/MIN. NO DIFFICULTIES.
--- NOTE | 2018-09-14 14:17 | NUR ---
PATIENTS IS FEEDING LUNCH TRAY. ADMINISTERED MORNING MEDS.
--- NOTE | 2018-09-14 15:52 | MORECARE ---
CASE MANAGEMENT DISCHARGE SUMMARY PATIENT: MALINDA FAN JR UNIT: [id number] ADM DATE: 08/27/18 AGE: 82 : 36 SEX: M ROOM/BED: D.[facility] AUTHOR: AC,DOC PHYSICIAN: REFERRING PHYSICIAN: AMANDO HORNER M.D. DATE OF SERVICE: 09/14/18 Discharge Plan Patient Name: MALINDA FAN Facility: [facility]:[place] : 1935 Planned Disposition: Home Anticipated Discharge Date: Discharge Date: Expected LOS: Initial Reviewer: [email or web address] Initial Review Date: 08/27/2018 Generated: 09/14/18 4:52 pm Comments DCP- Discharge Planning Updated by [email or web address]: Lenore Knapp on 09/14/18 2:[address] Looking at potentially inpatient rehab v/s fpc facility Will need to be able to tolerate 3 hours of therapy for inpatient rehab PT has only done ROM thus far Outpatient HD will need to be setup if going to fpc facility. AMOS spoke with Nasima regarding HD placement she stated that it depends on whether patient is going inpatient rehab or SNF. DCP- Discharge Planning Updated by [id number]: Roya Lees on 09/11/18 3:[address] Patient Name: MALINDA FAN Admission Status: Elective Accout number: [id number] Admission Date: 08-27-2018 : 1935 Admission Diagnosis:ATHSCL HEART DISEASE OF [place] CORONARY ARTERY W/O ANG Attending: AMANDO HORNER Current LOS: 15 Anticipated DC Date: Planned Disposition: Home Primary Insurance: MEDICARE A & B Discharge Planning Comments: CM SPOKE WITH PATIENT AND HIS AFTER NURSE NOTIFIED ME PATIENT INTERESTED IN [facility] WHEN DC'D. THEY ARE INTERESTED IN [facility]. I SPOKE TO NURSE ABOUT [facility] REFERRAL AND SHE STATES DR. BEARD WOULD BE FINE WITH ME ORDERING IT. NURSE IS HERBERT IN CVICU. CM TO FOLLOW AND ASSIST NEEDED. Care Aide: Roya Lees DCP- Discharge Planning Updated by [email or web address]: Roya Lees on 09/08/18 10:[address] Patient Name: MALINDA FAN Admission Status: Elective Accout number: [id number] Admission Date: 08-27-2018 : 1935 Admission Diagnosis:ATHSCL HEART DISEASE OF [place] CORONARY ARTERY W/O ANG Attending: AMANDO HORNER Current LOS: 12 Anticipated DC Date: Planned Disposition: Home Primary Insurance: MEDICARE A & B Discharge Planning Comments: CM SPOKE WITH NURSE TODAY, PATIENT HAS JUST BEEN EXTUBATED. CM WILL FOLLOW AND ASSIST NEEDED WITH DC PLANNING/NEEDS. FAMILY WANTS [facility], CM WAITING TO SEE IF PATIENT WILL BE APPROPRIATE FOR [facility]. Care Aide: Roya Lees DCP- Discharge Planning Updated by [email or web address]: Lenore Knapp on 08/27/18 4:[address] Patient Name: MALINDA FAN Admission Status: Elective Accout number: [id number] Admission Date: 08-27-2018 : 1935 Admission Diagnosis: Attending: AMANDO HORNER Current LOS: 1 Anticipated DC Date: Planned Disposition: Home Primary Insurance: MEDICARE A & B Discharge Planning Comments: CM met with patient and spouse (Priti) at bedside after explaining CM role and obtaining verbal consent. Patient lives at home with his Steffi and plans to return there upon discharge. Patient feels this would be a safe discharge. CM discussed availability / needs of home health and medical equipment. Patient states that he has CPAP. Patient denies any discharge needs at this time. Patient states he will have his drive him home upon discharge. CM will continue to follow and assist as needed with discharge planning / needs. Care Aide: Lenore Knapp DCPIA - Discharge Planning Initial Assessment Updated by [email or web address]: Lenore Knapp on 08/27/18 5:46 pm * Is the patient Alert and Oriented? Yes * How many steps to enter\exit or inside your home? * PCP DESTIN * Pharmacy [facility] * Preadmission Environment Home with Family * ADLs Independent * Equipment CPAP * List name and contact numbers for known caregivers / representatives who currently or will assist patient after discharge: PRITI FAN - - [phone], * Verbal permission to speak to the caregivers and representatives has been obtained from the patient. Yes * Community resources currently utilized None * Additional services required to return to the preadmission environment? No * Can the patient safely return to the preadmission environment? Yes * Has this patient been hospitalized within the prior 30 days at any hospital? No Last DP export: 09/11/18 3:13 p Patient Name: MALINDA FAN Page 28583 at 1552 All edits/amendments must be made on the electronic document DICTATION DATE: 09/14/181551 MUSIC PUBLICIST: TANYA 09/14/181551 RPT#: [id number] DC DATE: STATUS: ADM IN [facility] [address] [place] [address] END OF REPORT
--- NOTE | 2018-09-14 16:00 | NUR ---
PT RESTING IN BED C VSS ON OXYMIZER 4L. TITRATING DOWN. WILL CONTINUE TO MONITOR
--- NOTE | 2018-09-14 17:04 | NUR ---
PATIENT MUCH MORE AWAKE AND ALERT NOW. IN ROOM FEEDING PATIENT.
--- NOTE | 2018-09-14 17:32 | NUR ---
GAVE PATIENT NEW GOWN.
--- NOTE | 2018-09-14 19:37 | NUR ---
REPORT RECEIVED, SHIFT ASSESSMENT COMPLETED PER FLOW SHEET, SEE FOR DETAILS. PPP. CONFUSED, REORIENTATION PROVIDED. WILL CONTINUE TO MONITOR.
--- NOTE | 2018-09-14 20:45 | NUR ---
SCHEDULED MEDS GIVEN, WATER PROVIDED, NO DIFFIFULTY SWALLOWING. WILL CONTINUE TO MONITOR.
--- NOTE | 2018-09-14 22:17 | NUR ---
PATIENT C/O PAIN, PRN NORCO GIVEN, WATER PROVIDED, NO DIFFICULTY SWALLOWING. WILL CONTINUE TO MONITOR.
--- NOTE | 2018-09-14 23:11 | NUR ---
REASSESSMENT COMPLETED PER FLOW SHEET, SEE FOR DETAILS. CONFUSED, REORIENTATION PROVIDED. WATER PROVIDED. DENIES OTHER NEEDS. WILL CONTINUE TO MONITOR.
[2018-09-15] VITALS (23 sets, daily range): BP systolic 116–152; BP diastolic 58–84
--- NOTE | 2018-09-15 01:19 | NUR ---
C/O PAIN, PRN NORCO GIVEN, SEE EMAR FOR DETAILS. WILL CONTINUE TO MONITOR.
--- NOTE | 2018-09-15 03:17 | NUR ---
REASSESSMENT COMPLETED, SEE FLOW SHEET FOR DETAILS. DENIES NEEDS. WILL CONTINUE TO MONITOR.
--- NOTE | 2018-09-15 04:06 | NUR ---
LAB PERSONNEL AT BEDSIDE FOR AM LABS.
--- NOTE | 2018-09-15 05:00 | NUR ---
CHG BATH GIVEN. COMPLETE BED LINEN CHANGE. WILDE CARE COMPLETED. REPOSITIONED IN BED. DENIES NEEDS. CALL LIGHT WITHIN REACH. WILL CONTINUE TO MONITOR.
[2018-09-15 05:16] LABS: BASOPHILS 0.6 % (0-2); EOSINOPHILS 0 % (0-7); HEMATOCRIT 30.1 % (42.0-54.0); IMMATURE GRANULOCYTES 0.8 % (0-5); MCHC 33.2 g/dL (31.0-37.0); MCV 87.2 fL (80.0-100.0); MEAN PLATELET VOLUME 8.8 fL (7.4-10.4); MONOCYTES 5.8 % (2-11); NEUTROPHILS 87.8 % (40-80); PLATELET COUNT 152 10x3/uL (130-400); RBC 3.45 10x6/uL (4.20-6.10); RDW 14.9 % (11.5-14.5); WBC 10.4 10x3/uL (4.8-10.8)
[2018-09-15 05:52] LABS: ALBUMIN 2.8 g/dL (3.4-5.0); ANION GAP 14.3 mmol/L (8-16); BILIRUBIN - TOTAL 0.58 mg/dL (0.2-1.3); CALCIUM 8.5 mg/dL (8.5-10.1); CARBON DIOXIDE 28.5 mmol/L (21.0-32.0); CREATININE - SERUM 4.1 mg/dL (0.6-1.3); POTASSIUM - SERUM 3.8 mmol/L (3.5-5.1); PROTEIN - SERUM 6.8 g/dL (6.4-8.2)
--- NOTE | 2018-09-15 07:00 | NUR ---
PT RESTING IN BED WITH VSS. OXYMIZER ON 3 LITERS NC. PATIENT AWAKE AND ALERT. MORE TALKATIVE TODAY BUT STILL CONFUSED. WILL CONTINUE TO MONITOR
--- NOTE | 2018-09-15 09:04 | NUR ---
PULLED PATIENT UP IN BED. ADMINISTERED MEDICATION. VSS.
--- NOTE | 2018-09-15 09:15 | NUR ---
ASSISTED PATIENT UP TO CHAIR WITH PHYSICAL THERAPY. PATIENT SUPPORTED ABOUT 50% OF WEIGHT DURING TRANSFER. IN ROOM TO ASSIST WITH BREAKFAST. VSS.
--- NOTE | 2018-09-15 11:00 | NUR ---
PATIENT IS RESTING SITTING UP IN CHAIR WITH VSS. IN ROOM. NO COMPLAINTS. WILL CONTINUE TO MONITOR
--- NOTE | 2018-09-15 12:09 | MORECARE ---
CASE MANAGEMENT DISCHARGE SUMMARY PATIENT: MALINDA FAN JR UNIT: [id number] ADM DATE: 08/27/18 AGE: 82 : 36 SEX: M ROOM/BED: D[facility] AUTHOR: AC,DOC PHYSICIAN: REFERRING PHYSICIAN: AMANDO HORNER M.D. DATE OF SERVICE: 09/15/18 Discharge Plan Patient Name: MALINDA FAN Facility: [facility]:[place] : 1935 Planned Disposition: Home Anticipated Discharge Date: Discharge Date: Expected LOS: Initial Reviewer: [email or web address] Initial Review Date: 08/27/2018 Generated: 09/15/18 1:08 pm Comments DCP- Discharge Planning Updated by [email or web address]: Lenore Knapp on 09/14/18 2:[address] Looking at potentially inpatient rehab v/s long term facility Will need to be able to tolerate 3 hours of therapy for inpatient rehab PT has only done ROM thus far Outpatient HD will need to be setup if going to long term facility. AMOS spoke with Nasima regarding HD placement she stated that it depends on whether patient is going inpatient rehab or SNF. DCP- Discharge Planning Updated by [email or web address]: Roya Lees on 09/11/18 3:[address] Patient Name: MALINDA FAN Admission Status: Elective Accout number: [id number] Admission Date: 08-27-2018 : 1935 Admission Diagnosis:ATHSCL HEART DISEASE OF [place] CORONARY ARTERY W/O ANG Attending: AMANDO HORNER Current LOS: 15 Anticipated DC Date: Planned Disposition: Home Primary Insurance: MEDICARE A & B Discharge Planning Comments: CM SPOKE WITH PATIENT AND HIS AFTER NURSE NOTIFIED ME PATIENT INTERESTED IN [facility] WHEN DC'D. THEY ARE INTERESTED IN [facility]. I SPOKE TO NURSE ABOUT [facility] REFERRAL AND SHE STATES DR. BEARD WOULD BE FINE WITH ME ORDERING IT. NURSE IS HERBERT IN CVICU. CM TO FOLLOW AND ASSIST NEEDED. Physician Extender: Roya Lees DCP- Discharge Planning Updated by [email or web address]: Roya Lees on 09/08/18 10:[address] Patient Name: MALINDA FAN Admission Status: Elective Accout number: [id number] Admission Date: 08-27-2018 : 1935 Admission Diagnosis:ATHSCL HEART DISEASE OF [place] CORONARY ARTERY W/O ANG Attending: AMANDO HORNER Current LOS: 12 Anticipated DC Date: Planned Disposition: Home Primary Insurance: MEDICARE A & B Discharge Planning Comments: CM SPOKE WITH NURSE TODAY, PATIENT HAS JUST BEEN EXTUBATED. CM WILL FOLLOW AND ASSIST NEEDED WITH DC PLANNING/NEEDS. FAMILY WANTS [facility], CM WAITING TO SEE IF PATIENT WILL BE APPROPRIATE FOR [facility]. Physician Extender: Roya Lees DCP- Discharge Planning Updated by [id number]: Lenore Knapp on 08/27/18 4:[address] Patient Name: MALINDA FAN Admission Status: Elective Accout number: [id number] Admission Date: 08-27-2018 : 1935 Admission Diagnosis: Attending: AMANDO HORNER Current LOS: 1 Anticipated DC Date: Planned Disposition: Home Primary Insurance: MEDICARE A & B Discharge Planning Comments: CM met with patient and spouse (Priti) at bedside after explaining CM role and obtaining verbal consent. Patient lives at home with his Steffi and plans to return there upon discharge. Patient feels this would be a safe discharge. CM discussed availability / needs of home health and medical equipment. Patient states that he has CPAP. Patient denies any discharge needs at this time. Patient states he will have his drive him home upon discharge. CM will continue to follow and assist as needed with discharge planning / needs. Physician Extender: Lenore Knapp DCPIA - Discharge Planning Initial Assessment Updated by [email or web address]: Lenore Knapp on 08/27/18 5:46 pm * Is the patient Alert and Oriented? Yes * How many steps to enter\exit or inside your home? * PCP DESTIN * Pharmacy [facility] * Preadmission Environment Home with Family * ADLs Independent * Equipment CPAP * List name and contact numbers for known caregivers / representatives who currently or will assist patient after discharge: PRITI FAN - - [phone], * Verbal permission to speak to the caregivers and representatives has been obtained from the patient. Yes * Community resources currently utilized None * Additional services required to return to the preadmission environment? No * Can the patient safely return to the preadmission environment? Yes * Has this patient been hospitalized within the prior 30 days at any hospital? No External Providers External Provider: Angel Jacinto [facility] Next Contact Date: Service Request Date: Service Type: Resolution: Reviewer: Comments: Last DP export: 09/14/18 2:52 p Patient Name: MALINDA FAN Page 11175 at 1209 All edits/amendments must be made on the electronic document DICTATION DATE: 09/15/181207 GUN STOCKER: TANYA 09/15/181207 RPT#: [id number] DC DATE: STATUS: ADM IN [facility] [address] [place] [address] END OF REPORT
--- NOTE | 2018-09-15 12:27 | MORECARE ---
CASE MANAGEMENT DISCHARGE SUMMARY PATIENT: MALINDA FAN JR UNIT: [id number] ADM DATE: 08/27/18 AGE: 82 : 36 SEX: M ROOM/BED: [facility] AUTHOR: AC,DOC PHYSICIAN: REFERRING PHYSICIAN: AMANDO HORNER M.D. DATE OF SERVICE: 09/15/18 Discharge Plan Patient Name: MALINDA FAN Facility: [facility]:[place] : 1935 Planned Disposition: Anticipated Discharge Date: Discharge Date: Expected LOS: Initial Reviewer: [email or web address] Initial Review Date: 08/27/2018 Generated: 09/15/18 1:26 pm Comments DCP- Discharge Planning Updated by [email or web address]: Lenore Knapp on 09/15/18 11:[address] CM spoke with Fátima Beard nurse regarding placement to LTACH v/s SNF. Would prefer for patient to go to LTACH if possible. CM spoke with patient and his at bedside and they both agree on LTACH. CM called and spoke with Juliana at [facility] in [place] and faxed over records. CM will continue to follow and assist as needed with discharge planning / needs DCP- Discharge Planning Updated by [id number]: Lenore Knapp on 09/14/18 2:[address] Looking at potentially inpatient rehab v/s prison facility Will need to be able to tolerate 3 hours of therapy for inpatient rehab PT has only done ROM thus far Outpatient HD will need to be setup if going to prison facility. CM spoke with Nasima regarding HD placement she stated that it depends on whether patient is going inpatient rehab or SNF. DCP- Discharge Planning Updated by [id number]: Roya Lees on 09/11/18 3:[address] Patient Name: MALINDA FAN Admission Status: Elective Accout number: [id number] Admission Date: 08-27-2018 : 1935 Admission Diagnosis:ATHSCL HEART DISEASE OF [place] CORONARY ARTERY W/O ANG Attending: AMANDO HORNER Current LOS: 15 Anticipated DC Date: Planned Disposition: Home Primary Insurance: MEDICARE A & B Discharge Planning Comments: CM SPOKE WITH PATIENT AND HIS AFTER NURSE NOTIFIED ME PATIENT INTERESTED IN [facility] WHEN DC'D. THEY ARE INTERESTED IN [facility]. I SPOKE TO NURSE ABOUT [facility] REFERRAL AND SHE STATES DR. BEARD WOULD BE FINE WITH ME ORDERING IT. NURSE IS HERBERT IN CVICU. CM TO FOLLOW AND ASSIST NEEDED. Dispatcher Motor Vehicle: Roya Lees DCP- Discharge Planning Updated by [id number]: Roya Lees on 09/08/18 10:[address] Patient Name: MALINDA FAN Admission Status: Elective Accout number: [id number] Admission Date: 08-27-2018 : 1935 Admission Diagnosis:ATHSCL HEART DISEASE OF [place] CORONARY ARTERY W/O ANG Attending: AMANDO HORNER Current LOS: 12 Anticipated DC Date: Planned Disposition: Home Primary Insurance: MEDICARE A & B Discharge Planning Comments: CM SPOKE WITH NURSE TODAY, PATIENT HAS JUST BEEN EXTUBATED. CM WILL FOLLOW AND ASSIST NEEDED WITH DC PLANNING/NEEDS. FAMILY WANTS [facility], CM WAITING TO SEE IF PATIENT WILL BE APPROPRIATE FOR [facility]. Dispatcher Motor Vehicle: Roya Lees DCP- Discharge Planning Updated by [email or web address]: Lenore Knapp on 08/27/18 4:[address] Patient Name: MALINDA FAN Admission Status: Elective Accout number: [id number] Admission Date: 08-27-2018 : 1935 Admission Diagnosis: Attending: AMANDO HORNER Current LOS: 1 Anticipated DC Date: Planned Disposition: Home Primary Insurance: MEDICARE A & B Discharge Planning Comments: CM met with patient and spouse (Priti) at bedside after explaining CM role and obtaining verbal consent. Patient lives at home with his Steffi and plans to return there upon discharge. Patient feels this would be a safe discharge. CM discussed availability / needs of home health and medical equipment. Patient states that he has CPAP. Patient denies any discharge needs at this time. Patient states he will have his drive him home upon discharge. CM will continue to follow and assist as needed with discharge planning / needs. Dispatcher Motor Vehicle: Lenore Knapp DCPIA - Discharge Planning Initial Assessment Updated by [id number]: Lenore Knapp on 08/27/18 5:46 pm * Is the patient Alert and Oriented? Yes * How many steps to enter\exit or inside your home? * PCP DESTIN * Pharmacy [facility] * Preadmission Environment Home with Family * ADLs Independent * Equipment CPAP * List name and contact numbers for known caregivers / representatives who currently or will assist patient after discharge: PRITI FAN - - [phone], * Verbal permission to speak to the caregivers and representatives has been obtained from the patient. Yes * Community resources currently utilized None * Additional services required to return to the preadmission environment? No * Can the patient safely return to the preadmission environment? Yes * Has this patient been hospitalized within the prior 30 days at any hospital? No Last DP export: 09/15/18 11:08 a Patient Name: MALINDA FAN Page 44204 at 1227 All edits/amendments must be made on the electronic document DICTATION DATE: 09/15/186 PICKING TECH: TANYA 09/15/186 RPT#: [id number] DC DATE: STATUS: ADM IN [facility] [address] [place] [address] END OF REPORT
--- NOTE | 2018-09-15 13:00 | NUR ---
PT STILL UP IN CHAIR. FED LUNCH TO PATIENT. 100% EATIN. VSS.
--- NOTE | 2018-09-15 15:00 | NUR ---
ASSISTED PATIENT BACK TO BED WITH PHYSICAL THERAPY. GAVE PATIENT FULL HIBBA CLEANSE BATH AND CHANGED ALL LINENS. TURNED TO RIGHT SIDE.
--- NOTE | 2018-09-15 17:54 | NUR ---
OBTAINED ORDER FROM DR. TOMLIN FOR PRN CLONIDINE FOR SYSTOLIC BP > THAN 160.
--- NOTE | 2018-09-15 19:55 | MORECARE ---
CASE MANAGEMENT DISCHARGE SUMMARY PATIENT: MALINDA FAN JR UNIT: [id number] ADM DATE: 08/27/18 AGE: 82 : 36 SEX: M ROOM/BED: D.02 AUTHOR: AC,DOC PHYSICIAN: REFERRING PHYSICIAN: AMANDO HORNER M.D. DATE OF SERVICE: 09/15/18 Discharge Plan Patient Name: MALINDA FAN Facility: [facility]:[place] : 1935 Planned Disposition: Anticipated Discharge Date: Discharge Date: Expected LOS: Initial Reviewer: [id number] Initial Review Date: 08/27/2018 Generated: 09/15/18 8:54 pm Comments DCP- Discharge Planning Updated by [id number]: Lenore Knapp on 09/15/18 6:[address] CM spoke with Fátima Beard nurse regarding placement to LTACH v/s SNF. Would prefer for patient to go to LTACH if possible. CM spoke with patient and his at bedside and they both agree on LTACH. CM called and spoke with Juliana at [facility] in [place] and faxed over records. CM will continue to follow and assist as needed with discharge planning / needs Appended by Lenore Knapp on 09/15/2018 19:54 CDT: Juliana with LTACH will be here to evaluate patient in am. (0830) DCP- Discharge Planning Updated by [email or web address]: Lenore Knapp on 09/14/18 2:[address] Looking at potentially inpatient rehab v/s chcf facility Will need to be able to tolerate 3 hours of therapy for inpatient rehab PT has only done ROM thus far Outpatient HD will need to be setup if going to chcf facility. AMOS spoke with Nasima regarding HD placement she stated that it depends on whether patient is going inpatient rehab or SNF. DCP- Discharge Planning Updated by [email or web address]: Roya Lees on 09/11/18 3:[address] Patient Name: MALINDA FAN Admission Status: Elective Accout number: [id number] Admission Date: 08-27-2018 : 1935 Admission Diagnosis:ATHSCL HEART DISEASE OF [place] CORONARY ARTERY W/O ANG Attending: AMANDO HORNER Current LOS: 15 Anticipated DC Date: Planned Disposition: Home Primary Insurance: MEDICARE A & B Discharge Planning Comments: CM SPOKE WITH PATIENT AND HIS AFTER NURSE NOTIFIED ME PATIENT INTERESTED IN [facility] WHEN DC'D. THEY ARE INTERESTED IN [facility]. I SPOKE TO NURSE ABOUT [facility] REFERRAL AND SHE STATES DR. BEARD WOULD BE FINE WITH ME ORDERING IT. NURSE IS HERBERT IN CVICU. CM TO FOLLOW AND ASSIST NEEDED. 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 CM WILL FOLLOW AND ASSIST NEEDED WITH DC PLANNING/NEEDS. FAMILY WANTS [facility], CM WAITING TO SEE IF PATIENT WILL BE APPROPRIATE FOR [facility]. Milling Machine Set Up Operator: Roya Lees DCP- Discharge Planning Updated by [id number]: Lenore Knapp on 08/27/18 4:[address] Patient Name: MALINDA FAN Admission Status: Elective Accout number: [id number] Admission Date: 08-27-2018 : 1935 Admission Diagnosis: Attending: AMANDO HORNER Current LOS: 1 Anticipated DC Date: Planned Disposition: Home Primary Insurance: MEDICARE A & B Discharge Planning Comments: CM met with patient and spouse (Priti) at bedside after explaining CM role and obtaining verbal consent. Patient lives at home with his Steffi and plans to return there upon discharge. Patient feels this would be a safe discharge. CM discussed availability / needs of home health and medical equipment. Patient states that he has CPAP. Patient denies any discharge needs at this time. Patient states he will have his drive him home upon discharge. CM will continue to follow and assist as needed with discharge planning / needs. Milling Machine Set Up Operator: Lenore Knapp DCPIA - Discharge Planning Initial Assessment Updated by [id number]: Lenore Knapp on 08/27/18 5:46 pm * Is the patient Alert and Oriented? Yes * How many steps to enter\exit or inside your home? * PCP DESTIN * Pharmacy [facility] * Preadmission Environment Home with Family * ADLs Independent * Equipment CPAP * List name and contact numbers for known caregivers / representatives who currently or will assist patient after discharge: PRITI FAN - - [phone], * Verbal permission to speak to the caregivers and representatives has been obtained from the patient. Yes * Community resources currently utilized None * Additional services required to return to the preadmission environment? No * Can the patient safely return to the preadmission environment? Yes * Has this patient been hospitalized within the prior 30 days at any hospital? No Last DP export: 09/15/18 11:26 a Patient Name: MALINDA FAN Page 86114 at 1955 All edits/amendments must be made on the electronic document DICTATION DATE: 09/15/181953 GROCERY PACKER: TANYA 09/15/181953 RPT#: [id number] DC DATE: STATUS: ADM IN [facility] [address] [place] [address] END OF REPORT
--- NOTE | 2018-09-15 20:03 | NUR ---
PT RECEIVED WITH EYES OPEN. PT YELLING OUT, PT ASKING FOR HELP. PT LEANING ON SIDERAI. HOB LOWERED AND PT REPOSITIONED AND PULLED UP IN THE BED. HOB ELEVATED. PT COMFORT NOTED. ANDRY SHERMAN. VSS. WILL CONTINUE TO OBSERVE.
--- NOTE | 2018-09-15 21:05 | NUR ---
SCHEDULED MEDICATIONS GIVEN PER MAR. NO DIFFICULTY NOTED. REPOSTIONED FOR COMFORT. WILL CONTINUE TO OBSERVE.
--- NOTE | 2018-09-15 23:17 | NUR ---
REASSESSMENT COMPLETED, SEE FLOW SHEET. WILL CONTINUE TO OBSERVE
[2018-09-16] VITALS (22 sets, daily range): BP systolic 115–167; BP diastolic 5–134
--- NOTE | 2018-09-16 03:31 | NUR ---
PT AWAKE. REASSESSMENT COMPLETED, SEE FLOW SHEET. SUBSTERNAL DRESSING CHANGED. WILL CONTINUE TO OBSERVE.
[2018-09-16 06:56] LABS: BASOPHILS 0.6 % (0-2); EOSINOPHILS 0 % (0-7); HEMATOCRIT 29.9 % (42.0-54.0); HEMOGLOBIN 10.1 g/dL (13.5-17.5); IMMATURE GRANULOCYTES 0.7 % (0-5); LYMPHOCYTES 5.7 % (15-50); MCH 29.4 pg (26.0-34.0); MCHC 33.8 g/dL (31.0-37.0); MCV 86.9 fL (80.0-100.0); MONOCYTES 6.1 % (2-11); NEUTROPHILS 86.9 % (40-80); PLATELET COUNT 149 10x3/uL (130-400); RBC 3.44 10x6/uL (4.20-6.10); RDW 15.1 % (11.5-14.5); WBC 10.4 10x3/uL (4.8-10.8)
[2018-09-16 07:15] LABS: ALBUMIN 2.9 g/dL (3.4-5.0); ANION GAP 16.5 mmol/L (8-16); BILIRUBIN - TOTAL 0.79 mg/dL (0.2-1.3); CALCIUM 8.9 mg/dL (8.5-10.1); CARBON DIOXIDE 27.7 mmol/L (21.0-32.0); CREATININE - SERUM 5.1 mg/dL (0.6-1.3); PHOSPHOROUS 6.8 mg/dL (2.5-4.9); POTASSIUM - SERUM 4.2 mmol/L (3.5-5.1)
--- NOTE | 2018-09-16 08:05 | NUR ---
PT POSITIONED IN BED FOR BREAKFAST. FED BREAKFAST. SWALLOW PRECAUTIONS USED.
--- NOTE | 2018-09-16 09:45 | NUR ---
NUTRITION F/U PT VISIT, SPOUSE AT BEDSIDE. PT TOLERATING REG PUREED DIET, ~50% INTAKE BREAKFAST. WILL CONTINUE TO PROVIDE DIET, MONITOR PO INTAKE. RD FOLLOWING
--- NOTE | 2018-09-16 09:50 | NUR ---
PT SAT ON SIDE OF BED BY PT. HD NURSE TOOK PT TO HD FOR TX.
--- NOTE | 2018-09-16 12:41 | NUR ---
OT NOTE: REQUIRED P.T. ASSIST FOR BED MOB INCLUDING SUPINE TO SIT; SITTING BALANCE BETTER TODAY. ABLE TO SIT UNSUPPORTED FOR APPROX 5 MIN; SIT TO STAND X 2 TRIALS WITH MAX ASSIST.. CONT WITH EXTENSIVE WEAKNESS THROUGHOUT. WILL BENEFIT FROM IP REHAB. SAUNDRA DUNHAM, OTR/L
--- NOTE | 2018-09-16 13:07 | NUR ---
REC'D PT BACK FROM . VSS.
--- NOTE | 2018-09-16 18:49 | NUR ---
REPOSITIONED PT FOR COMFORT. PT CONTINUES TO BE CONFUSED. BED ALARM ON.
--- NOTE | 2018-09-16 19:55 | NUR ---
PT RECEIVED YELLING OUT. PULLING OFF B/P CUFF AND GOWN. PT STRAIGHTENED UP IN BED AND PULLED UP. PT CALM AT THIS TIME. VSS. WILL CONTINUE TO OBSERVE.
--- NOTE | 2018-09-16 21:40 | NUR ---
SCHEDULED MEDICATIONS GIVEN, TOLERATED WELL. PT PULLING NASAL CANNULA OFF, AND REPLACED. NO OTHER CONCERNS NOTED. WILL CONTINUE TO OBSERVE.
[2018-09-17] VITALS (14 sets, daily range): BP systolic 127–177; BP diastolic 73–102
--- NOTE | 2018-09-17 01:27 | NUR ---
PT WITH EYES OPEN WATCHING TV. YELLS OUT AT TIMES. WHEN ASSESSESS PT REMINDED OF PLACE, TIME. REPOSITIONED. WILL CONTINUE TO OBSERVE.
--- NOTE | 2018-09-17 04:21 | NUR ---
PT PULLING OFF N/C AND PLACE BACK ON. ATTEMPT TO REORIENTATE TO IMPORTANCE OF O2.
[2018-09-17 06:48] LABS: BASOPHILS 0.3 % (0-2); EOSINOPHILS 0 % (0-7); HEMATOCRIT 30.7 % (42.0-54.0); HEMOGLOBIN 10.4 g/dL (13.5-17.5); IMMATURE GRANULOCYTES 0.6 % (0-5); MCH 29.4 pg (26.0-34.0); MCHC 33.9 g/dL (31.0-37.0); MCV 86.7 fL (80.0-100.0); MEAN PLATELET VOLUME 9.3 fL (7.4-10.4); MONOCYTES 4.8 % (2-11); NEUTROPHILS 88.3 % (40-80); PLATELET COUNT 140 10x3/uL (130-400); RBC 3.54 10x6/uL (4.20-6.10); RDW 14.9 % (11.5-14.5); WBC 9.8 10x3/uL (4.8-10.8)
[2018-09-17 06:50] LABS: ALBUMIN 3.1 g/dL (3.4-5.0); ANION GAP 16.7 mmol/L (8-16); BILIRUBIN - TOTAL 0.87 mg/dL (0.2-1.3); CALCIUM 8.6 mg/dL (8.5-10.1); CARBON DIOXIDE 27.2 mmol/L (21.0-32.0); CREATININE - SERUM 4.1 mg/dL (0.6-1.3); POTASSIUM - SERUM 3.9 mmol/L (3.5-5.1); PROTEIN - SERUM 7.2 g/dL (6.4-8.2)
--- NOTE | 2018-09-17 06:58 | NUR ---
PT GIVEN CHG BATH AND LINEN CHANGE PROVIDED. PT YELLS OUT FOR HELP AFTER PUTTING HEAD ON ONE SIDERAIL AND FEET OVER OTHER. ASSIST GIVEN TO STRAIGHT PT IN BED. WILL CONTINUE TO OBSERVE.
[2018-09-17] MEDS ORDERED: ALBUTEROL2.5 MG/3 M UPD (09:21)
[2018-09-17] MEDS ORDERED: LOPRESSOR25 MG PO (09:21)
[2018-09-17] MEDS ORDERED: ASPIRIN EC81 M1 PO (09:22)
[2018-09-17] MEDS ORDERED: CATAPRES0.1 MG PO (09:22)
[2018-09-17] MEDS ORDERED: Tessalon Perle PO (09:23)
[2018-09-17] MEDS ORDERED: MUCOMYST 20% INH (09:23)
[2018-09-17] MEDS ORDERED: MUCINEX600 MG PO (09:23)
[2018-09-17] MEDS ORDERED: HYDROCODON-ACE1 EAC7 PO (09:23)
[2018-09-17] MEDS ORDERED: PROTONIX40 MG PO (09:23)
[2018-09-17] MEDS ORDERED: HUMULIN REG INJ [BKC SC (09:24)
--- NOTE | 2018-09-17 09:27 | NUR ---
0700 PT RECIEVED IN BED ALERT, TRACKS WITH EYES BUT IS NONVERBAL OR GARBLED, O2 4L NC, WILDE DRAINING DION URINE, REPOSITIONS INDEPENDENTLY AND WITH ASSIST, ALARMS SET, WILL COTNINUE TO MONITOR 0930 AM MEDS GIVEN, WILL HOLD LOPRESSOR PER DIALYSIS NURSE WHO IS ON WAY TO UNIT TO DO DIALYSIS BEFORE TRANSFERRING
--- NOTE | 2018-09-17 12:59 | NUR ---
REPOSITIONED Q2 HOURS AND NEEDED PT REPOSITIONS SELF IN BED, REPORT CALLED TO JUNE AND PT LEFT FACILITY AT 1258 WITH LIFENET, AWARE OF TRANSFER AND ATTEMPTED TO CALL AND NOTIFY AT TIME OF DEPARTURE
--- NOTE | 2018-09-17 16:38 | MORECARE ---
CASE MANAGEMENT DISCHARGE SUMMARY PATIENT: MALINDA FAN JR UNIT: [id number] ADM DATE: 08/27/18 AGE: 82 : 36 SEX: M ROOM/BED: D.02 AUTHOR: AC,DOC PHYSICIAN: REFERRING PHYSICIAN: AMANDO HORNER M.D. DATE OF SERVICE: 09/17/18 Discharge Plan Patient Name: MALINDA FAN Facility: [facility]:[place] : 1935 Planned Disposition: Anticipated Discharge Date: Discharge Date: 09/17/2018 Expected LOS: Initial Reviewer: [email or web address] Initial Review Date: 08/27/2018 Generated: 09/17/18 5:38 pm Comments DCP- Discharge Planning Updated by [id number]: Lenore Knapp on 09/15/18 6:[address] CM spoke with Fátima Beard nurse regarding placement to LTACH v/s SNF. Would prefer for patient to go to LTACH if possible. CM spoke with patient and his at bedside and they both agree on LTACH. CM called and spoke with Juliana at [facility] in [place] and faxed over records. CM will continue to follow and assist as needed with discharge planning / needs Appended by Lenore Knapp on 09/15/2018 19:54 CDT: Juliana with LTACH will be here to evaluate patient in am. (0830) DCP- Discharge Planning Updated by [email or web address]: Lenore Knapp on 09/14/18 2:[address] Looking at potentially inpatient rehab v/s fpc facility Will need to be able to tolerate 3 hours of therapy for inpatient rehab PT has only done ROM thus far Outpatient HD will need to be setup if going to fpc facility. AMOS spoke with Nasima regarding HD placement she stated that it depends on whether patient is going inpatient rehab or SNF. DCP- Discharge Planning Updated by [email or web address]: Roya Lees on 09/11/18 3:[address] Patient Name: MALINDA FAN Admission Status: Elective Accout number: [id number] Admission Date: 08-27-2018 : 1935 Admission Diagnosis:ATHSCL HEART DISEASE OF [place] CORONARY ARTERY W/O ANG Attending: AMANDO HORNER Current LOS: 15 Anticipated DC Date: Planned Disposition: Home Primary Insurance: MEDICARE A & B Discharge Planning Comments: CM SPOKE WITH PATIENT AND HIS AFTER NURSE NOTIFIED ME PATIENT INTERESTED IN [facility] WHEN DC'D. THEY ARE INTERESTED IN [facility]. I SPOKE TO NURSE ABOUT [facility] REFERRAL AND SHE STATES DR. BEARD WOULD BE FINE WITH ME ORDERING IT. NURSE IS HERBERT IN CVICU. CM TO FOLLOW AND ASSIST NEEDED. 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 CM WILL FOLLOW AND ASSIST NEEDED WITH DC PLANNING/NEEDS. FAMILY WANTS [facility], CM WAITING TO SEE IF PATIENT WILL BE APPROPRIATE FOR I[facility]. Brilliandeer Looper: Roya Lees DCP- Discharge Planning Updated by [email or web address]: Lenore Knapp on 08/27/18 4:[address] Patient Name: MALINDA FAN Admission Status: Elective Accout number: [id number] Admission Date: 08-27-2018 : 1935 Admission Diagnosis: Attending: AMANDO HORNER Current LOS: 1 Anticipated DC Date: Planned Disposition: Home Primary Insurance: MEDICARE A & B Discharge Planning Comments: CM met with patient and spouse (Priti) at bedside after explaining CM role and obtaining verbal consent. Patient lives at home with his Steffi and plans to return there upon discharge. Patient feels this would be a safe discharge. CM discussed availability / needs of home health and medical equipment. Patient states that he has CPAP. Patient denies any discharge needs at this time. Patient states he will have his drive him home upon discharge. CM will continue to follow and assist as needed with discharge planning / needs. Brilliandeer Looper: Lenore Knapp DCPIA - Discharge Planning Initial Assessment Updated by [id number]: Lenore Knapp on 08/27/18 5:46 pm * Is the patient Alert and Oriented? Yes * How many steps to enter\exit or inside your home? * PCP DESTNI * Pharmacy [facility] * Preadmission Environment Home with Family * ADLs Independent * Equipment CPAP * List name and contact numbers for known caregivers / representatives who currently or will assist patient after discharge: PRITI FAN - - [phone], * Verbal permission to speak to the caregivers and representatives has been obtained from the patient. Yes * Community resources currently utilized None * Additional services required to return to the preadmission environment? No * Can the patient safely return to the preadmission environment? Yes * Has this patient been hospitalized within the prior 30 days at any hospital? No Last DP export: 09/15/18 6:55 p Patient Name: MALINDA FAN Page 31908 at 1638 All edits/amendments must be made on the electronic document DICTATION DATE: 09/17/181637 SEATER GRINDER: TANYA 09/17/181637 RPT#: [id number] DC DATE:09/17/18 STATUS: DIS IN [facility] [address] [place] [address] END OF REPORT
--- NOTE | 2018-09-18 17:40 | MORECARE ---
CASE MANAGEMENT DISCHARGE SUMMARY PATIENT: MALINDA FAN JR UNIT: [id number] ADM DATE: 08/27/18 AGE: 82 : 36 SEX: M ROOM/BED: D.02 AUTHOR: AC,DOC PHYSICIAN: REFERRING PHYSICIAN: AMANDO HORNER M.D. DATE OF SERVICE: 09/18/18 Discharge Plan Patient Name: MALINDA FAN Facility: [facility]:[place] : 1935 Planned Disposition: Anticipated Discharge Date: Discharge Date: 09/17/2018 Expected LOS: Initial Reviewer: [email or web address] Initial Review Date: 08/27/2018 Generated: 09/18/18 6:40 pm Comments DCP- Discharge Planning Updated by [email or web address]: Lenore Knapp on 09/18/18 4:[address] LATE ENTRY 09/16/17 1815 CM RECIEVED NOTICE THAT PATIENT HAS BEEN ACCEPTED TO [facility]. CM ARRANGED FOR [facility] @ 8AM 09/17/18. D/C IMM SIGNED VIA SPOUSE @ 1800. CM WILL CONTINUE TO FOLLOW AND ASSIST IN DISCHARGE PLANNING / NEEDS. LATE ENTRY 09/17/[address] @ [address] TOMLIN REQUESTED THAT PATIENT HAS DIALYSIS PRIOR TO DISCHARGE TO [facility] TODAY. CM NOTIFIED JULIANA AT [facility] OF CHANGE BUT PLANNING TRANSFER LATER IN DAY. DCP- Discharge Planning Updated by [email or web address]: Lenore Knapp on 09/15/18 6:[address] CM spoke with Fátima Beard nurse regarding placement to [facility] v/s SNF. Would prefer for patient to go to [facility] if possible. CM spoke with patient and his at bedside and they both agree on [facility]. CM called and spoke with Juliana at [facility] in [place] and faxed over records. CM will continue to follow and assist as needed with discharge planning / needs Appended by Lenore Knapp on 09/15/2018 19:54 CDT: Juliana with [facility] will be here to evaluate patient in am. (0830) DCP- Discharge Planning Updated by [email or web address]: Lenore Knapp on 09/14/18 2:[address] Looking at potentially inpatient rehab v/s penitentiary facility Will need to be able to tolerate 3 hours of therapy for inpatient rehab PT has only done ROM thus far Outpatient HD will need to be setup if going to penitentiary facility. CM spoke with Nasima regarding HD placement she stated that it depends on whether patient is going inpatient rehab or SNF. DCP- Discharge Planning Updated by [email or web address]: Roya Lees on 09/11/18 3:[address] Patient Name: MALINDA FAN Admission Status: Elective Accout number: [id number] Admission Date: 08-27-2018 : 1935 Admission Diagnosis:ATHSCL HEART DISEASE OF [place] CORONARY ARTERY W/O ANG Attending: AMANDO HORNER Current LOS: 15 Anticipated DC Date: Planned Disposition: Home Primary Insurance: MEDICARE A & B Discharge Planning Comments: CM SPOKE WITH PATIENT AND HIS AFTER NURSE NOTIFIED ME PATIENT INTERESTED IN [facility] WHEN DC'D. THEY ARE INTERESTED IN [facility]. I SPOKE TO NURSE ABOUT [facility] REFERRAL AND SHE STATES DR. BEARD WOULD BE FINE WITH ME ORDERING IT. NURSE IS HERBERT IN [facility]. CM TO FOLLOW AND ASSIST NEEDED. Charge Accounts Audit Clerk: Roya Lees DCP- Discharge Planning Updated by [email or web address]: Roya Lees on 09/08/18 10:[address] Patient Name: MALINDA FAN Admission Status: Elective Accout number: [id number] Admission Date: 08-27-2018 : 1935 Admission Diagnosis:ATHSCL HEART DISEASE OF [place] CORONARY ARTERY W/O ANG Attending: AMANDO HORNER Current LOS: 12 Anticipated DC Date: Planned Disposition: Home Primary Insurance: MEDICARE A & B Discharge Planning Comments: CM SPOKE WITH NURSE TODAY, PATIENT HAS JUST BEEN EXTUBATED. CM WILL FOLLOW AND ASSIST NEEDED WITH DC PLANNING/NEEDS. FAMILY WANTS [facility], CM WAITING TO SEE IF PATIENT WILL BE APPROPRIATE FOR [facility]. Charge Accounts Audit Clerk: Roya Yoana DCP- Discharge Planning Updated by [id number]: Lenore Knapp on 08/27/18 4:[address] Patient Name: MALINDA FAN Admission Status: Elective Accout number: [id number] Admission Date: 08-27-2018 : 1935 Admission Diagnosis: Attending: AMANDO HORNER Current LOS: 1 Anticipated DC Date: Planned Disposition: Home Primary Insurance: MEDICARE A & B Discharge Planning Comments: CM met with patient and spouse (Priti) at bedside after explaining CM role and obtaining verbal consent. Patient lives at home with his Steffi and plans to return there upon discharge. Patient feels this would be a safe discharge. CM discussed availability / needs of home health and medical equipment. Patient states that he has CPAP. Patient denies any discharge needs at this time. Patient states he will have his drive him home upon discharge. CM will continue to follow and assist as needed with discharge planning / needs. Charge Accounts Audit Clerk: Lenore Knapp DCPIA - Discharge Planning Initial Assessment Updated by [id number]: Lenore Knapp on 08/27/18 5:46 pm * Is the patient Alert and Oriented? Yes * How many steps to enter\exit or inside your home? * PCP DESTIN * Pharmacy [facility] * Preadmission Environment Home with Family * ADLs Independent * Equipment CPAP * List name and contact numbers for known caregivers / representatives who currently or will assist patient after discharge: PRITI FAN - - [phone], * Verbal permission to speak to the caregivers and representatives has been obtained from the patient. Yes * Community resources currently utilized None * Additional services required to return to the preadmission environment? No * Can the patient safely return to the preadmission environment? Yes * Has this patient been hospitalized within the prior 30 days at any hospital? No Coverage Notice Reviewer: [id number] - Lenore Knapp Notice Issued Date-Time: 09/16/2018 18:00 Notice Type: IM Discharge Notice Notice Delivered To: Family Member Relationship to Patient: Spouse Baton Twirler Name: Priti Fan Delivery Method: HAND - Hand Delivered Suri Days: Prior Verbal Notification: Recipient Understood Notice: Yes Recipient Signature: Yes Med Rec Note Co-signed by Attending: Coverage Notice Comment: Last DP export: 09/17/18 3:38 p Patient Name: MALINDA FAN Page [phone] at 1740 All edits/amendments must be made on the electronic document DICTATION DATE: 09/18/181739 WOOD GANG SAWYER: TANYA 09/18/181739 RPT#: [id number] DC DATE:09/17/18 STATUS: DIS IN [facility] [address] [place] [address] END OF REPORT
== END 2018-09-17 13:00 | disposition short-term general hospital (02) | DRG 216 ==
LOC: D.CATH 11:15 → D.M2 11:15 → D.CATH 13:30 → D.M2 14:57 → D.CATH 08-27 08:10 → D.M2 08-27 08:11 → D.CVICU 08-27 08:11
PROVIDERS: Internal Medicine Hematology & Oncology; Internal Medicine Nephrology; Internal Medicine Pulmonary Disease; Thoracic Surgery (Cardiothoracic Vascular Surgery); ADMIT Internal Medicine Cardiovascular Disease; ATTEND Internal Medicine Cardiovascular Disease
PROC: 4A023N7 Measurement of Cardiac Sampling and Pressure, Left Heart, Percutaneous Approach (ICD-10-PCS; 2018-08-27)
PROC: 021209W Bypass Coronary Artery, Three Arteries from Aorta with Autologous Venous Tissue, Open Approach (ICD-10-PCS; 2018-08-28)
PROC: 02L70CK Occlusion of Left Atrial Appendage with Extraluminal Device, Open Approach (ICD-10-PCS; 2018-08-28)
PROC: 02RF08Z Replacement of Aortic Valve with Zooplastic Tissue, Open Approach (ICD-10-PCS; principal; 2018-08-28 07:30)
PROC: 02100A9 Bypass Coronary Artery, One Artery from Left Internal Mammary with Autologous Arterial Tissue, Open Approach (ICD-10-PCS; 2018-08-28 07:30)
PROC: 0JH63XZ Insertion of Tunneled Vascular Access Device into Chest Subcutaneous Tissue and Fascia, Percutaneous Approach (ICD-10-PCS; 2018-09-10)
PROC: 05H533Z Insertion of Infusion Device into Right Subclavian Vein, Percutaneous Approach (ICD-10-PCS; 2018-09-10)
DX: I25.10 Atherosclerotic heart disease of native coronary artery without angina pectoris (principal); J15.6 Pneumonia due to other Gram-negative bacteria; J96.01 Acute respiratory failure with hypoxia; G93.41 Metabolic encephalopathy; N18.4 Chronic kidney disease, stage 4 (severe); D62 Acute posthemorrhagic anemia; J90 Pleural effusion, not elsewhere classified; J81.1 Chronic pulmonary edema; I35.0 Nonrheumatic aortic (valve) stenosis; I48.91 Unspecified atrial fibrillation; I10 Essential (primary) hypertension; E78.5 Hyperlipidemia, unspecified; E66.9 Obesity, unspecified; I12.9 Hypertensive chronic kidney disease with stage 1 through stage 4 chronic kidney disease, or unspecified chronic kidney disease; E11.22 Type 2 diabetes mellitus with diabetic chronic kidney disease; D69.6 Thrombocytopenia, unspecified; E11.21 Type 2 diabetes mellitus with diabetic nephropathy; E11.42 Type 2 diabetes mellitus with diabetic polyneuropathy; G47.33 Obstructive sleep apnea (adult) (pediatric); E03.9 Hypothyroidism, unspecified; Z95.0 Presence of cardiac pacemaker; R53.81 Other malaise; T42.4X5A Adverse effect of benzodiazepines, initial encounter

== ENCOUNTER → 2018-11-13 13:25 | Outpatient (CLI) | payer MEDICARE, BC ==
[2018-08-30 08:14] VITALS: BMI 32.8
[~2018-11-13 13:25] MED LIST: ALBUTEROL2.5 MG/3 M UPD; ASPIRIN EC81 M1 PO; CATAPRES0.1 MG PO; FUROSEMIDE40 MG PO; GLIMEPIRIDE2 MG PO; HUMULIN REG INJ [BKC SC; HYDROCODON-ACE1 EAC7 PO; HYTRIN5 MG PO; LASIX40 MG PO; LEVO-T25 MCG PO; LISINOPRIL-HCT1 EAC7 PO; LOPRESSOR25 MG PO; MUCINEX600 MG PO; MUCOMYST 20% INH; NORVASC5 MG PO; PRINIVIL20 MG PO; PROTONIX40 MG PO; TRADJENTA5 MG PO; Tessalon Perle PO; ZYLOPRIM300 MG PO
== END | disposition home or self-care (01) ==
LOC: D.HCCECHO 09:30 → D.HCCARDIO 14:00 → D.HCCECHO 14:00
PROVIDERS: ATTEND Internal Medicine Cardiovascular Disease
DX: I48.91 Unspecified atrial fibrillation (principal)

== ENCOUNTER 2018-12-19 17:56 | Inpatient (IN) | payer MEDICARE, BC ==
[~2018-12-19] VITALS: Ht 172.7 cm; Wt 83.3 kg
[2018-12-19 18:34] LABS: BASOPHILS 0.2 % (0-2); EOSINOPHILS 0.1 % (0-7); HEMATOCRIT 35.7 % (42.0-54.0); HEMOGLOBIN 11.5 g/dL (13.5-17.5); IMMATURE GRANULOCYTES 0.3 % (0-5); LYMPHOCYTES 12.1 % (15-50); MCH 29.3 pg (26.0-34.0); MCHC 32.2 g/dL (31.0-37.0); MCV 90.8 fL (80.0-100.0); MEAN PLATELET VOLUME 9.5 fL (7.4-10.4); MONOCYTES 8.1 % (2-11); NEUTROPHILS 79.2 % (40-80); PLATELET COUNT 157 10x3/uL (130-400); RBC 3.93 10x6/uL (4.20-6.10); RDW 14.5 % (11.5-14.5); WBC 11.9 10x3/uL (4.8-10.8)
[2018-12-19 18:41] LABS: INR 1.27 (0.85-1.17); PROTIME 15.3 SECONDS (11.6-15.0)
[2018-12-19 18:45] LABS: CALC OSMOLALITY 295 mosm/kg (275-300); CALCIUM 9.2 mg/dL (8.5-10.1); CARBON DIOXIDE 27.2 mmol/L (21.0-32.0); CHLORIDE - SERUM 103 mmol/L (98-107); CREATININE - SERUM 2.1 mg/dL (0.6-1.3); GLUCOSE 204 mg/dL (74-106); POTASSIUM - SERUM 3.5 mmol/L (3.5-5.1); SODIUM 139 mmol/L (136-145); UREA NITROGEN 47 mg/dL (7-18); eGFR NON AFRICAN AMERICAN 32 mL/min (90-120)
[2018-12-19 19:02] LABS: APPEARANCE CLEAR (CLEAR); BILIRUBIN NEGATIVE (NEGATIVE); COLOR YELLOW (YELLOW); GLUCOSE 100 mg/dL (NEGATIVE); KETONE NEGATIVE (NEGATIVE); NITRITE NEGATIVE (NEGATIVE); PROTEIN 2+ mg/dL (NEGATIVE); SPECIFIC GRAVITY 1.015 (1.005-1.020); UROBILINOGEN NORMAL (NORMAL)
[2018-12-19 19:07] LABS: ALBUMIN 3.3 g/dL (3.4-5.0); ALKALINE PHOSPHATASE 86 U/L (46-116); ALT (SGPT) 12 U/L (10-68); CKMB 3.6 U/L (0.0-3.6); CREATINE KINASE 69 UL (21-232); MAGNESIUM - SERUM 1.9 mg/dL (1.8-2.4); PROTEIN - SERUM 7.5 g/dL (6.4-8.2); TROPONIN-I 0.053 ng/mL (0.000-0.060)
[2018-12-19 19:18] LABS: BACTERIA FEW /hpf (NEGATIVE); EPITHELIAL CELLS NSEEN /hpf (0-5); RED CELLS - URINE NONE SEEN /hpf (0-5); WHITE CELLS - URINE 0-5 /hpf (NEGATIVE)
[2018-12-19 19:19] LABS: HYALINE CAST 0-5 /lpf (NONE SEEN)
--- NOTE | 2018-12-19 21:32 | NUR ---
LAWANDA STOP TIME 2131.
--- NOTE | 2018-12-19 21:52 | NUR ---
LAWANDA STOP TIME WAS 4593
[2018-12-19] MEDS ORDERED: LEXAPRO5 MG PO (22:57)
[2018-12-19] MEDS ORDERED: FUROSEMIDE20 MG PO (22:58)
[2018-12-19] MEDS ORDERED: COREG12.5 MG PO (22:59)
[2018-12-19] MEDS ORDERED: K-DUR20 MEQ PO (23:00)
[2018-12-19 23:15] VITALS: BP 188/88
--- NOTE | 2018-12-19 23:23 | NUR ---
PT ARRIVED FROM ER, FAMILY AT BEDSIDE, KNEW SOME MEDS BUT NOT ALL, WILL BRING MED LIST TOMORROW, PT HAS A R.CHEST HEMOSPLIT AND A 22G.IV TO LAC-ANTIBONIC INFUSING, FAMILY SET UP HIS C-PAP, DENIES ANY OTHER NEEDS AT THIS TIME, PLACED ON QUOC ALARM, BED IS LOW, SRX2, CALL LIGHT IN REACH, WILL CONTINUE PLAN OF CARE
[2018-12-19 23:50] VITALS: BP 188/88
[2018-12-20 04:00] VITALS: BP 164/74
[2018-12-20 05:40] LABS: BASOPHILS 0.3 % (0-2); EOSINOPHILS 0.1 % (0-7); HEMATOCRIT 33.9 % (42.0-54.0); HEMOGLOBIN 10.7 g/dL (13.5-17.5); IMMATURE GRANULOCYTES 0.4 % (0-5); LYMPHOCYTES 8.7 % (15-50); MCHC 31.6 g/dL (31.0-37.0); MCV 91.9 fL (80.0-100.0); MEAN PLATELET VOLUME 9.1 fL (7.4-10.4); MONOCYTES 5.8 % (2-11); NEUTROPHILS 84.7 % (40-80); PLATELET COUNT 134 10x3/uL (130-400); RBC 3.69 10x6/uL (4.20-6.10); RDW 14.6 % (11.5-14.5); WBC 9.9 10x3/uL (4.8-10.8)
[2018-12-20 06:05] LABS: ANION GAP 12.1 mmol/L (8-16); CALCIUM 9.4 mg/dL (8.5-10.1); CARBON DIOXIDE 27.9 mmol/L (21.0-32.0); CREATININE - SERUM 2.2 mg/dL (0.6-1.3); MAGNESIUM - SERUM 1.9 mg/dL (1.8-2.4); PHOSPHOROUS 3.4 mg/dL (2.5-4.9)
[2018-12-20 07:52] VITALS: BP 163/80
[2018-12-20 12:00] VITALS: BP 154/79
[2018-12-20] MEDS ORDERED: COLACE100 MG PO (15:04)
[2018-12-20] MEDS ORDERED: MELATONIN 3 MG1 TAB PO (15:04)
[2018-12-20] MEDS ORDERED: DULCOLAX5 MG PO (15:05)
[2018-12-20] MEDS ORDERED: VITAMIN D31000 UNIT PO (15:06)
[2018-12-20] MEDS ORDERED: TRAZODONE HCL150 MG PO (15:07)
[2018-12-20] MEDS ORDERED: EPOGEN4000 U/ML SC (15:08)
[2018-12-20] MEDS ORDERED: PEPCID40 MG PO (15:10)
[2018-12-20] MEDS ORDERED: KLOR-CON 1010 MEQ PO (15:12)
[2018-12-20 15:47] VITALS: BP 139/85
[2018-12-20 20:00] VITALS: BP 164/82
[2018-12-21 00:34] VITALS: BP 163/83
--- NOTE | 2018-12-21 00:41 | NUR ---
PT RESTING IN BED WITH CPAP ON. RR EVEN AND UNLABORED. NO S/S OF DISTRESS NOTED. NO NEEDS EXPRESSED. SR X2. CALL LIGHT IN REACH. WILL CTM
[2018-12-21 04:00] VITALS: BP 157/86
[2018-12-21 05:51] LABS: BASOPHILS 0.5 % (0-2); EOSINOPHILS 3.9 % (0-7); HEMATOCRIT 30.6 % (42.0-54.0); HEMOGLOBIN 9.9 g/dL (13.5-17.5); IMMATURE GRANULOCYTES 0.5 % (0-5); LYMPHOCYTES 14.3 % (15-50); MCH 28.9 pg (26.0-34.0); MCHC 32.4 g/dL (31.0-37.0); MEAN PLATELET VOLUME 9.3 fL (7.4-10.4); MONOCYTES 5.7 % (2-11); NEUTROPHILS 75.1 % (40-80); PLATELET COUNT 141 10x3/uL (130-400); RBC 3.43 10x6/uL (4.20-6.10); RDW 14.6 % (11.5-14.5)
[2018-12-21 05:57] LABS: MCV 89.2 fL (80.0-100.0); WBC 6.4 10x3/uL (4.8-10.8)
[2018-12-21 06:25] LABS: ANION GAP 12.5 mmol/L (8-16); CALCIUM 8.8 mg/dL (8.5-10.1); CARBON DIOXIDE 25.7 mmol/L (21.0-32.0); CREATININE - SERUM 2.5 mg/dL (0.6-1.3)
[2018-12-21 06:28] LABS: POTASSIUM - SERUM 3.2 mmol/L (3.5-5.1)
[2018-12-21 07:38] VITALS: BP 129/81
[2018-12-21 11:27] VITALS: BP 136/72
--- NOTE | 2018-12-21 13:45 | HP ---
PATIENT: MALINDA FAN JR MEDICAL RECORD: [id number] ACCOUNT: [id number] LOCATION:[address] : [birth year] ADMISSION DATE: 12/19/18 PCP: GARETH WEIR HISTORY AND PHYSICAL EXAMINATION DATE OF ADMISSION: 12/19/2018 CHIEF COMPLAINT: Weakness, decreased appetite, and nausea. HISTORY OF PRESENT ILLNESS: This is an 83-year-old white male who was brought to the ER because family reported increased weakness, decreased appetite, and nausea. The patient had prolonged hospitalization this past summer in [place] and he was admitted to the hospital by cardiology after cardiac catheterization showed severe aortic stenosis and occlusive coronary artery disease. He underwent coronary artery bypass graft, aortic valve replacement, and Maze procedure. He had a difficult course postoperatively due to chronic renal failure and other comorbidities. He was placed on dialysis for a length of time. He was transferred to [facility] for further rehabilitation. He continued his dialysis there. He was then discharged from there to [facility] where he did not have dialysis and then he was discharged from [facility] to [facility] where he was just discharged on Friday12/18/2018. I spoke to his daughter before the patient came in to the Emergency Room and she stated he was not feeling too well; they did not have a glucometer at home as he was on insulin sliding scale, but on long-acting insulin for his diabetes. In the Emergency Room, his blood pressure was a little high. He was afebrile. His white blood cell count was 11,900. His proBNP was 20,415. Chest x-ray showed bibasilar airspace opacity consistent with normal atelectasis and/or CT of the head was done and no acute process was found there. He was admitted for pneumonia and for weakness. His baseline creatinine was between 2.2 and 2.5 prior to his hospitalization and heart procedures. PAST MEDICAL AND SURGICAL HISTORY: He has a known history of coronary artery disease and aortic valve disease. He has a history of diabetes, hypertension, hypothyroidism, sleep apnea, melanoma, followed by Dr. Marquez Downey. He had prostate cancer. ALLERGIES: ADHESIVE TAPE. PAST SURGICAL HISTORY: He has had pacemaker placement. Other surgical procedures include appendectomy and prostatectomy. FAMILY HISTORY: Unknown. HABITS: He never smoked. No alcohol or drugs. REVIEW OF SYSTEMS: GENERAL: He has had some mild weight loss throughout these hospitalizations and admissions to rehab. HEENT: No particular sinus or allergy problems. RESPIRATORY: No known history of COPD or asthma. CARDIAC: See above history with his coronary disease and aortic valve disease. GASTROINTESTINAL: No significant problems with diarrhea, constipation, or reflux. GENITOURINARY: He has had history of prostate cancer and had prostatectomy. HISTORY AND PHYSICAL [id number] MALINDA FAN JR MUSCULOSKELETAL: No significant arthritis. NEUROLOGIC: No migraines or seizures. PSYCHIATRIC: Denies depression or melancholia. HOME MEDICATIONS: He was discharged from [facility] with albuterol via updrafts 4 times a day as needed, reportedly to get Epogen 4000 units subcutaneously on Mondays, Wednesdays, and Fridays, but I am not sure if he was just given that during dialysis, carvedilol 3.125 mg twice a day, aspirin 81 mg once a day, [place] 5/325 q.4-6 hours p.r.n. pain, Lexapro 10 mg once a day, trazodone 100 mg at bedtime, furosemide 40 mg twice a day, potassium 10 mEq once a day, Mucinex 600 mg twice a day, Colace 100 mg once a day, Pepcid 40 mg once a day, Dulcolax 5 mg p.o. b.i.d., levothyroxine 25 mcg once a day, vitamin D3 1000 units once a day, melatonin 3 mg p.o. at bedtime. He was on regular insulin sliding scale with meals. PHYSICAL EXAMINATION: VITAL SIGNS: Temperature 97.5, pulse 65, respirations 17, blood pressure is 154/79, and O2 sat 96%. GENERAL: He is awake. He does not appear in acute distress. He has a CPAP in place as he was taking a nap. HEENT: Unremarkable. NECK: Supple. HEART: Regular rate and rhythm without murmur. LUNGS: Decreased breath sounds in the bases bilaterally. ABDOMEN: Soft. EXTREMITIES: Trace to 1+ lower extremity edema. NEUROLOGIC: Unremarkable. LABORATORY DATA: CBC with a white count of 11,900, hemoglobin 11.5, hematocrit 35.7. INR 1.27. Basic metabolic panel is okay except BUN and creatinine were 50 and 3.2. Urinalysis is yellow, clear, 2+ protein, trace blood, few bacteria are seen. Lactic acid 1.2, proBNP is 20,415. CT of the head shows no acute process. Chest x-ray shows bibasilar airspace opacities consistent with atelectasis and/or pneumonia. ASSESSMENT: 1. Bibasilar pneumonia. 2. Weakness. 3. Chronic kidney disease. 4. Sleep apnea. 5. Diabetes. PLAN: Blood cultures have been done. He was started on IV antibiotics. We will monitor his glucose. Further tests or procedures as per Dr. Weir in the morning. TRANSINT:[id number] Voice Confirmation ID: [id number] DOCUMENT ID: [id number] HISTORY AND PHYSICAL [id number] MALINDA FAN JR, WILLIAM MD at 1345 CC: [id number] DICTATION DATE: 12/20/182236 GROUNDMAN: 12/20/18 234 ADM IN [facility] [address] [id number]
[2018-12-21 15:06] VITALS: BP 147/80
--- NOTE | 2018-12-21 15:16 | NUR ---
I have reviewed this patient and I concur with the Shift Assessment completed by the Licensed Practical Nurse today this shift.
[2018-12-21 15:29] VITALS: BMI 28.5
--- NOTE | 2018-12-21 19:10 | NUR ---
AWAKE AND ALERT LCTA SKIN WARM AND DRY ASSISTED WITH URINAL BED IS LOW AND LOCKED AND SRX2 CALL LIGHT IS WITH PT
[2018-12-21 20:00] VITALS: BP 157/107
--- NOTE | 2018-12-21 20:41 | NUR ---
BP RECHECK 148/89
[2018-12-22] VITALS: BP 159/86
[2018-12-22 04:27] VITALS: BP 163/82
[2018-12-22 05:17] LABS: BASOPHILS 0.3 % (0-2); EOSINOPHILS 2.6 % (0-7); HEMATOCRIT 31.8 % (42.0-54.0); HEMOGLOBIN 10.1 g/dL (13.5-17.5); IMMATURE GRANULOCYTES 0.2 % (0-5); LYMPHOCYTES 17.9 % (15-50); MCH 28.7 pg (26.0-34.0); MCHC 31.8 g/dL (31.0-37.0); MCV 90.3 fL (80.0-100.0); MEAN PLATELET VOLUME 9.2 fL (7.4-10.4); MONOCYTES 6.9 % (2-11); NEUTROPHILS 72.1 % (40-80); PLATELET COUNT 143 10x3/uL (130-400); RBC 3.52 10x6/uL (4.20-6.10); RDW 14.6 % (11.5-14.5); WBC 6.7 10x3/uL (4.8-10.8)
[2018-12-22 05:40] LABS: ANION GAP 12.1 mmol/L (8-16); CALCIUM 8.7 mg/dL (8.5-10.1); CARBON DIOXIDE 26.1 mmol/L (21.0-32.0); CREATININE - SERUM 2.6 mg/dL (0.6-1.3); POTASSIUM - SERUM 3.2 mmol/L (3.5-5.1)
[2018-12-22 07:37] VITALS: BP 175/89
[2018-12-22 11:10] VITALS: BP 167/92
[2018-12-22 14:17] VITALS: Ht 172.7 cm; Wt 83.3 kg
[2018-12-22 14:44] VITALS: BP 161/88
[2018-12-22 15:42] LABS: CREATININE - URINE 86.9 mg/dL (30-125); PRO/CRE RATIO URINE 1.5 mg/g; PROTEIN - URINE 131.4 mg/dL (0.0-11.9)
[2018-12-22 16:08] LABS: APPEARANCE CLEAR (CLEAR); BILIRUBIN NEGATIVE (NEGATIVE); COLOR YELLOW (YELLOW); GLUCOSE NEGATIVE (NEGATIVE); KETONE NEGATIVE (NEGATIVE); NITRITE NEGATIVE (NEGATIVE); PROTEIN 1+ mg/dL (NEGATIVE); UROBILINOGEN NORMAL (NORMAL)
[2018-12-22 16:09] LABS: RED CELLS - URINE 0-5 /hpf (0-5); WHITE CELLS - URINE OCC /hpf (NEGATIVE)
[2018-12-22 16:10] LABS: BACTERIA FEW /hpf (NEGATIVE)
[2018-12-22 20:00] VITALS: BP 168/90
--- NOTE | 2018-12-22 20:00 | NUR ---
ASSISTED PT TO PUT CPAP ON AT HIS REQUEST. HE VOIDED 150ML OF CLEAR YELLOW URINE. DRESSINGS TO ROXANNE HEELS C/D/I. PUT HIS HEEL PROTECTORS BACK ON. DENIES NEEDS OR PAIN. FALL ALARM ON, BED LOW AND CALL LIGHT WITHIN REACH.
[2018-12-23] VITALS (7 sets, daily range): BP systolic 147–182; BP diastolic 67–92
[2018-12-23 07:09] LABS: BASOPHILS 0.3 % (0-2); EOSINOPHILS 2.4 % (0-7); HEMATOCRIT 30.4 % (42.0-54.0); HEMOGLOBIN 9.8 g/dL (13.5-17.5); IMMATURE GRANULOCYTES 0.3 % (0-5); LYMPHOCYTES 18.7 % (15-50); MCH 28.8 pg (26.0-34.0); MCHC 32.2 g/dL (31.0-37.0); MCV 89.4 fL (80.0-100.0); MONOCYTES 7.1 % (2-11); NEUTROPHILS 71.2 % (40-80); PLATELET COUNT 142 10x3/uL (130-400); RDW 14.6 % (11.5-14.5); WBC 5.9 10x3/uL (4.8-10.8)
[2018-12-23 07:14] LABS: CALCIUM 8.6 mg/dL (8.5-10.1); CARBON DIOXIDE 27.1 mmol/L (21.0-32.0); CREATININE - SERUM 2.2 mg/dL (0.6-1.3); POTASSIUM - SERUM 3.1 mmol/L (3.5-5.1)
--- NOTE | 2018-12-23 14:09 | NUR ---
PT LYING IN BED WITH HOB ELEVATED. EYES CLOSED. CHEST RISING AND FALLING. BED LOW. CL IN REACH. AT BEDSIDE.
--- NOTE | 2018-12-23 14:43 | NUR ---
NUTRITION F/U PT TOLERATING ADA DIET. 75% INTAKE LUNCH TODAY. WILL CONTINUE TO MONITOR PO INTAKE, PT PROGRESS. RD FOLLOWING
--- NOTE | 2018-12-23 15:55 | NUR ---
I have reviewed this patient and I concur with the Shift Assessment completed by the Licensed Practical Nurse today this shift.
--- NOTE | 2018-12-23 16:39 | NUR ---
I have reviewed this patient and I concur with the Shift Assessment completed by the Licensed Practical Nurse today this shift.
--- NOTE | 2018-12-23 18:20 | NUR ---
PT SPILT URINAL ON BILATERAL HEEL/FOOT DRESSINGS AND ON FOAM BOOTS. REMOVED DRESSINGS. CLEANSED BILATERAL HEEL WOUNDS WITH WOUND CLEANSER AND PATTED DRY, PLACED 4X4'S AND WRAPPED WITH KERLIX. PLACED NEW FOAM HEEL PROTECTORS ON FEET. CHANGED RIGHT CHEST HEMOSPLIT DRESSING PER PROTCOL USING STERILE TECHNIQUE.
--- NOTE | 2018-12-23 20:02 | NUR ---
RECFIEVED UP IN BED WITH BIPAP IN PLACE. ALERT AND ORIENTED WITH TV ON. LUNG SOUNDS CLEAR BILATERALLY. DSG TO ROXANNE HEELS. HEEL PROTECTORS IN PLACE. PACEMAKER TO LEFT CHEST. TELEMETRY IN P0LACE. LOWER EXTREMITIES RED AND RIGHT LEG WARM. HEMO SPLIT TO RIGHT CHEST AND IV TO LEFT AC SL. DENIES ANY NEEDS AT THIS TIME.
--- NOTE | 2018-12-23 21:47 | NUR ---
clonidine given and b/p now 131/55.
[2018-12-24 04:30] VITALS: BP 162/83
[2018-12-24 05:33] LABS: BASOPHILS 0.5 % (0-2); EOSINOPHILS 1.7 % (0-7); HEMATOCRIT 30.8 % (42.0-54.0); IMMATURE GRANULOCYTES 0.3 % (0-5); MCH 29.2 pg (26.0-34.0); MCHC 32.5 g/dL (31.0-37.0); MCV 89.8 fL (80.0-100.0); MEAN PLATELET VOLUME 9.4 fL (7.4-10.4); NEUTROPHILS 70.5 % (40-80); PLATELET COUNT 149 10x3/uL (130-400); RBC 3.43 10x6/uL (4.20-6.10); RDW 14.8 % (11.5-14.5); WBC 5.9 10x3/uL (4.8-10.8)
[2018-12-24 06:00] LABS: ANION GAP 11.6 mmol/L (8-16); CALCIUM 8.6 mg/dL (8.5-10.1); CARBON DIOXIDE 27.8 mmol/L (21.0-32.0); CREATININE - SERUM 2.2 mg/dL (0.6-1.3); POTASSIUM - SERUM 3.4 mmol/L (3.5-5.1)
--- NOTE | 2018-12-24 06:17 | NUR ---
NOTIFIED FREDDY BARTON OF POTASSIUM LEVEL OF 3.4 AND EP. NEW ORDER TO HOLD POTASSIUM TODAY.
--- NOTE | 2018-12-24 06:48 | NUR ---
REPORT RECEIVED. HE IS ALERT ABLE TO VOICE NEEDS. O2 ON AT 2 L/M PER N/C. RIGHT CHEST HEMOSPLIT AND LEFT A/C SALINE LOCK INTACT. C-PAP IS CURRENTLY ON. RESP EVEN WITHOUT LABOR AT REST. HOB IS UP. BED IN LOWEST POSITION AND LOCKED. CAREPLAN REVIEW DONE WITH SAFETY PRECAUTIONS IN PLACE. CL IN REACH
[2018-12-24 08:10] VITALS: BP 147/77
[2018-12-24 11:02] VITALS: BP 153/74
--- NOTE | 2018-12-24 15:40 | NUR ---
Pt was admitted on 12/19/18 with pneumonia, DM and CHF. It is noted today that he has a stage 3 pressure injury on his left heel measuring 3cm x 3cm x 0.6cm and a dry intact blood blister on his his right heel also measuring 3cm x 3cm. Pt states he has had these areas since he was [facility]. Heel protectors were in place along with kerlix wraps upon assessment. Both heels were cleansed with wound book cleaner and patted dry. They were then painted with betadine and covered with 4x4s and secured with kerlix. Heel protectors were reapplied and heels were bridged on pillow. Recommend daily dressing changes and heels bridged even when wearing heel protectors. Wound care will monitor.
[2018-12-24 15:51] VITALS: BP 166/84
--- NOTE | 2018-12-24 19:33 | NUR ---
PT SITTING UP IN BED. REQUESTING HIS LIGHTS BE TURNED OFF SO HE CAN TAKE A NAP. OFFERED TO PUT ON HIS CPAP BUT HE WANTS TO WAIT UNTIL AFTER HE RECEIVES HIS NIGHT TIME MEDS. HE IS ON 2L NC. RESPIRATIONS EVEN AND UNLABORED. DENIES PAIN OR NEEDS. CALL LIGHT IN REACH AND BED IS LOW. FALL ALARM ON.
[2018-12-24 20:19] VITALS: BP 169/73
[2018-12-24 23:19] VITALS: BP 176/91
[2018-12-25] VITALS (7 sets, daily range): BP systolic 154–174; BP diastolic 64–89
[2018-12-25 04:29] LABS: BASOPHILS 0.6 % (0-2); EOSINOPHILS 1.7 % (0-7); HEMATOCRIT 31.7 % (42.0-54.0); HEMOGLOBIN 10.4 g/dL (13.5-17.5); IMMATURE GRANULOCYTES 0.3 % (0-5); LYMPHOCYTES 19.8 % (15-50); MCH 29.5 pg (26.0-34.0); MCHC 32.8 g/dL (31.0-37.0); MCV 89.8 fL (80.0-100.0); MONOCYTES 8.5 % (2-11); NEUTROPHILS 69.1 % (40-80); PLATELET COUNT 142 10x3/uL (130-400); RBC 3.53 10x6/uL (4.20-6.10); RDW 14.8 % (11.5-14.5); WBC 6.6 10x3/uL (4.8-10.8)
[2018-12-25 04:50] LABS: ANION GAP 6.3 mmol/L (8-16); CALCIUM 8.9 mg/dL (8.5-10.1); CARBON DIOXIDE 29.8 mmol/L (21.0-32.0); CREATININE - SERUM 2.2 mg/dL (0.6-1.3); POTASSIUM - SERUM 3.1 mmol/L (3.5-5.1)
--- NOTE | 2018-12-25 07:00 | NUR ---
REPORT RECEIVED. ASSISTED RT TO PULL HIM UP IN THE BED. O2 ON AT 3 L/M PER N/C, HE PUTS CPAP ON AND OFF AT TIMES DURING THE DAY. RESP EVEN WITHOUT LABOR. BED IN LOWEST POSITION AND LOCKED WITH BED ALARM ON. RIGHT HEMOSPLIT INTACT, LEFT SALINE LOCK INTACT. CAREPLAN REVIEW DONE WITH SAFETY PRECAUTIONS INTACT. HEEL PROTECTORS ON AND HEELS FLOATED IN THE BED. HE HAS DRESSING INTACT TO ROXANNE HEELS.
--- NOTE | 2018-12-25 10:30 | NUR ---
LEFT TO HAVE RIGHT HEMOSPLIT REMOVED AT THIS TIME. PREOP COMPLETE. HE IS ALERT AND TRANSFERRED WITH PORTABLE O2.
--- NOTE | 2018-12-25 11:00 | NUR ---
SURGEON STATED TO DISPOSE OF CATHETER- NOT SENT TO PATHOLOGY- SH
--- NOTE | 2018-12-25 11:54 | NUR ---
MEETS ANESTHESIA DISCHARGE CRITERIA
--- NOTE | 2018-12-25 12:15 | NUR ---
RETURN FROM REMOVAL OF RIGHT CHEST HEMOSPLIT. DRESSING WITH SMALL AMOUNT OF BLOOD NOTED. HE IS AWAKE AND SWALLOWS WITHOUT DIFF. BBS ARE CLEAR. SALINE LOCK INTACT. VSS. HE WAS GIVEN ONE TIME DOSE OF APPRESSALINE WHILE IN RECOVERY. AT BEDSIDE. HE IS ABLE TO MOVE EXT UPON COMMAND.
--- NOTE | 2018-12-25 12:29 | OP ---
PATIENT NAME: MALINDA FAN JR MEDICAL RECORD: [id number] :37 LOCATION:D.M2 D.2131 ADMISSION DATE:12/19/18 SURGEON: ELVER HAWKINS MD DATE OF OPERATION: 12/25/2018 SURGEON: Elver Hawkins MD PREOPERATIVE DIAGNOSIS: Chronic kidney disease with indwelling HemoSplit hemodialysis catheter. POSTOPERATIVE DIAGNOSIS: Chronic kidney disease with indwelling HemoSplit hemodialysis catheter. PROCEDURE PERFORMED: Removal of tunneled right subclavian HemoSplit hemodialysis catheter. ANESTHESIA: Local. COMPLICATIONS: None. SPECIMENS: None. Case was clean. OPERATIVE COURSE: After consent was obtained, the patient was taken to the operating room. A time-out was taken to confirm the correct patient and procedure. The patient was placed in the supine position on the operating table. Gentle IV sedation was given. The right chest was prepped and draped in typical sterile fashion. A 30 cc of local anesthetic was used in the right chest wall. The sutures were cut with a 15 blade scalpel. The cuff was dissected out of the subcutaneous tissue. A combination of hemostats and Metzenbaum scissor dissection. Once the cuff was circumferentially dissected, the catheter was removed. Pressure was held for approximately 5 minutes until there was no evidence of bleeding. The skin incision site was then closed with 3-0 Vicryl suture in a subcuticular fashion. At the end of the case, all needle and instrument counts were correct. No complications occurred. The patient was transferred to the recovery room in satisfactory condition. TRANSINT:[id number] Voice Confirmation ID: [id number] DOCUMENT ID: [id number] ELVER HAWKINS MD at 1229 CC: [id number] DICTATION DATE: 12/25/18 1103 COLLECTIONS MANAGER: 12/25/18 114[address] [place] [address]
--- NOTE | 2018-12-25 12:52 | NUR ---
Nutrition Follow-up: S/p hemosplit removal this AM. Per chart, noted pt with stage 3 pressure injury to L heel. Diet: Diabetic PO intake: 57% avg x 6 meals Wt: 183.2# Last BM: 12/24 per chart Labs noted: K+ 3.1, Glu 105 Meds noted: Lasix, Micro K, Vitamin D, Colace, Humulin -Change to Cardiac Diabetic diet. -Offer nutrition supplements. -May consider appetite stimulant. -RD following.
--- NOTE | 2018-12-25 15:14 | MORECARE ---
CASE MANAGEMENT DISCHARGE SUMMARY PATIENT: MALINDA FAN JR UNIT: [id number] ADM DATE: 12/19/18 AGE: 83 : 36 SEX: M ROOM/BED: D.2131 AUTHOR: FRANKIE SHEN PHYSICIAN: REFERRING PHYSICIAN: JOCELYNE JIMENEZ MD DATE OF SERVICE: 12/25/18 Discharge Plan Patient Name: MALINDA FAN Facility: [facility]:[place] : 1935 Planned Disposition: Anticipated Discharge Date: Discharge Date: Expected LOS: Initial Reviewer: [email or web address] Initial Review Date: 12/25/2018 Generated: 12/25/18 4:14 pm Comments DCP- Discharge Planning Updated by [id number]: Roya Lees on 12/25/18 2:[address] Patient Name: MALINDA FAN Admission Status: ER Accout number: [id number] Admission Date: 12-19-2018 : 1935 Admission Diagnosis: Attending: JOCELYEN JIMENEZ Current LOS: 6 Anticipated DC Date: Planned Disposition: Primary Insurance: MEDICARE A & B Discharge Planning Comments: CM MET WITH PATIENT ABOUT DC PLANNING/NEEDS. ASKED HIM ABOUT REHAB, HH AND EQUIPMENT. HE WANTS ME TO TALK TO HIS PRITI WHO SHOULD BE HERE IN APPROX AN HOUR. I ANTICIPATE HE MAY NEED REHAB VS. HH. CM WILL FOLLOW. Hedis Specialist: Roya Lees Patient Name: MALINDA FAN Page [phone] at 1514 All edits/amendments must be made on the electronic document DICTATION DATE: 12/25/181512 PUBLIC RECORDS RESEARCHER: TANYA 12/25/181512 RPT#: [id number] DC DATE: STATUS: ADM IN [facility] [address] [place] [address] END OF REPORT
--- NOTE | 2018-12-25 15:22 | NUR ---
CALOSEPTINE APPIED TO REDNESS ON COCCYX. AREAS MANAS WITH SMALL OLD PURPLE BRUISE ON LEFT BUTTOCK. HE WAS ASSISTED X2 UP TO CHAIR IN HIS ROOM TO SIT UP AWHILE. CL IN REACH O2 IS ON.
--- NOTE | 2018-12-25 21:35 | NUR ---
PT LYINGIN BED, A&A. FSBS 118, NO INSULIN NEEDED, PER SLIDING SCALE. PM MEDS ADMINISTERED, PER ORDER. OFFERED PT SNACK, PT REFUSED. PLACED CPAP ON PT. DENIES ANY OTHER NEEDS AT THIS TIME. BED IN LOWEST POSITION, SR X2, CALL LIGHT AND GLASSES WITHIN REACH. WILL CONTINUE TO MONITOR.
[2018-12-26] VITALS: BP 160/72
--- NOTE | 2018-12-26 07:59 | NUR ---
PATIENT IS RESTING ON HIS BACK IN BED. DENIES ANY NEEDS AT THIS TIME.
[2018-12-26 09:20] VITALS: BP 174/82
[2018-12-26 11:54] LABS: BASOPHILS 0.5 % (0-2); EOSINOPHILS 0.7 % (0-7); HEMOGLOBIN 10.4 g/dL (13.5-17.5); IMMATURE GRANULOCYTES 0.4 % (0-5); LYMPHOCYTES 14.3 % (15-50); MCH 28.7 pg (26.0-34.0); MCHC 31.5 g/dL (31.0-37.0); MCV 91.2 fL (80.0-100.0); MEAN PLATELET VOLUME 8.9 fL (7.4-10.4); MONOCYTES 7.5 % (2-11); NEUTROPHILS 76.6 % (40-80); PLATELET COUNT 128 10x3/uL (130-400); RBC 3.62 10x6/uL (4.20-6.10); RDW 15.3 % (11.5-14.5); WBC 7.6 10x3/uL (4.8-10.8)
[2018-12-26 11:59] LABS: ANION GAP 10.8 mmol/L (8-16); CALCIUM 8.9 mg/dL (8.5-10.1); CARBON DIOXIDE 29.1 mmol/L (21.0-32.0); CREATININE - SERUM 2.1 mg/dL (0.6-1.3)
[2018-12-26 12:00] VITALS: BP 151/81
[2018-12-26 12:01] LABS: POTASSIUM - SERUM 3.9 mmol/L (3.5-5.1)
--- NOTE | 2018-12-26 13:35 | NUR ---
PATIENT IS UP TO CHAIR. HE IS WEARING HIS BIPAP ALL DAY. HE FINALLY REMOVED IT TO EAT.
--- NOTE | 2018-12-26 16:16 | NUR ---
PATIENT HAD A PAUSE IN HIS HEART RATE AND IT LOOKED LIKE A LARGE PVC. PACE MAKER IS PACING NORMALLY AGAIN AT THIS TIME.
[2018-12-26 16:30] VITALS: BP 151/81
--- NOTE | 2018-12-26 17:56 | NUR ---
PATIENT SITTING UP AT SIDE OF BED EATTING DINNER. NEEDS ASSISTANCE TO USE URINAL. AT BEDSIDE.
--- NOTE | 2018-12-26 18:27 | NUR ---
PATIENT REQUEST TO GO BACK TO HIS CHAIR. HE IS SITTING UP IN HIS CHAIR NOW. HAS GONE HOME.
[2018-12-26 20:00] VITALS: BP 164/78
--- NOTE | 2018-12-26 20:23 | NUR ---
INITIAL ROUNDS COMPLETED AT 1910 HRS. PT ASSISTED BACK TO BED WITH STAFF X2. GAIT SHUFFLING. PT STATED HE WAS SOB AT 1940 HRS. O2 SAT 98% ON 3LNC. PT ASSISTED BACK TO RECLINER WITH STAFF X2. HUMIDIFIER PLACED ON O2. ASSESSMENT COMPELTED. O2 3LNC. LUNGS DIMINISHED IN BASES BILAT. ALERT AND OREINTED TO PERSON, PLACE AND TIME. PATE. ABD SOFT WITH ACTIVE BS NOTED. BILAT HEEL DRESSINGS CLEAN,DRY AND INTACT. HEEL PROTECTORS IN USE. CALL LIGHT WITHIN REACH AND DOOR OPEN.
--- NOTE | 2018-12-26 21:55 | NUR ---
PM MEDS GIVEN. PT ASSISTED BACKTO BED AT THAT TIME. PT CURRENTLY WATCHING TC. SR UP X2,CALL LIGHT WITHIN REACH AND BED ALARM ON.
--- NOTE | 2018-12-26 23:43 | NUR ---
PT RESTING WITH EYES CLOSED. RESP EVEN AND REGULAR. CPAP IN USE. SR UP X2, CALL LIGHT WITHIN REACH AND BED ALARM ON.
[2018-12-27] VITALS: BP 164/76
--- NOTE | 2018-12-27 02:06 | NUR ---
PT TO SITTING ON SIDEOF BED. VOIDED 175CC OF YELLOWURINE. ASSISTED BACK INTO BED ANDREPOSITIONED FOR COMFORT. HEELS BRIDGED. SR UP X2, CALL LIGHT WITHIN REACH.
[2018-12-27 04:00] VITALS: BP 158/78
--- NOTE | 2018-12-27 04:13 | NUR ---
PT RESTING WITH EYES CLOSED. RESP EVEN AND REGULAR. SR UP X2, CALL LIGHT WITHIN REACH AND BED ALARM ON. CPAP IN USE.
--- NOTE | 2018-12-27 06:36 | NUR ---
VSS TRHOUGHOUT NIGHT. PACED RHYTHM PER CM. AM FSBS 82. NO COVERAGE NEEDED. PT STATED NORCO ALLEVIATED BILAT HEEL PAIN. NEEDS MET; WILL CONTINUE TO MONITOR.
--- NOTE | 2018-12-27 07:44 | NUR ---
PATIENT IS RESTING ON HIS BACK IN BED. CPAP IN PLACE. DENIES ANY OTHER NEEDS AT THIS TIME.
[2018-12-27 07:58] VITALS: BP 175/89
--- NOTE | 2018-12-27 10:44 | NUR ---
PATIENT IS UP IN CHAIR. PT WITH PATIENT.
[2018-12-27 12:41] VITALS: BP 155/70
[2018-12-27 17:04] VITALS: BP 146/73
--- NOTE | 2018-12-27 19:33 | NUR ---
INITIAL ORUNDS COMPLETED. PT DENIES ANY DISCOMFORT. CALL LIGHT WITHIN REACH.
[2018-12-27 20:00] VITALS: BP 177/69
--- NOTE | 2018-12-27 22:38 | NUR ---
ASSESSMENT COMPLETED AT 2004 HRS. VSS. PACED RHTYHM PER CM HR 69. ALERT AND ORIENTED TO PERSON, PLACE AND TIME. PATE. LUNGS DIMINISHED IN BASES BILAT. BRUISES AND SCABS NOTED TO BILAT ARMS. IV TO LAC SL. ABD SOFT WITH ACTIVE BS NOTED. BILAT HEEL DRESSINGS CLEAN, DRY AND INTACT WITH HEEL PROTECTORES IN USE. PM FSBS 179. 4 UNITS REG INSULIN GIVEN SUB-Q TO UPPER L ARM. PM MMEDS GIVEN. PM SNACK SERVED. PT CURRETNLY RESTING WITH EYES CLOSED. RESP EVEN AND REGULAR. SR UP X2, CALL LIGHT WITHIN REACH AND BED ALARM ON.
[2018-12-28] VITALS: BP 154/68
--- NOTE | 2018-12-28 00:04 | NUR ---
PT RESTING WITH EYES CLOSED. RESP EVEN AND REGULAR. CPAP IN USE. SR UP X2, CALL LIGHT WITHIN REACH AND BED ALARM ON.
--- NOTE | 2018-12-28 01:50 | NUR ---
ASSISTED PT TO SIDE OF BED. VOIDED 150CC OF CLEAR, YELLOW URINE. REPOSITONED PT IN BED. SR UP X2,CALL LIGHT WITHIN REACH, CPAP AND BED ALARM ON.
[2018-12-28 04:00] VITALS: BP 159/81
--- NOTE | 2018-12-28 04:30 | NUR ---
PT RESTING WITH EYES CLOSED. RESP EVEN AND REGULAR. SR UP X2, CALL LIGHT WITHIN REACH AND BED ALARM ON.
--- NOTE | 2018-12-28 07:29 | NUR ---
PATIENT IS RESTING QUIETLY ON HIS BACK AT THIS TIME. CPAP IN PLACE. LIGHTS LOW.
[2018-12-28 08:27] VITALS: BP 164/74
--- NOTE | 2018-12-28 08:48 | NUR ---
PATIENT UP TO CHAIR FOR BREAKFAST. HE STOOD AT BEDSIDE WITH ASSISTANCE AND USED THE URINAL.
--- NOTE | 2018-12-28 09:15 | MORECARE ---
CASE MANAGEMENT DISCHARGE SUMMARY PATIENT: MALINDA FAN JR UNIT: [id number] ADM DATE: 12/19/18 AGE: 83 : 36 SEX: M ROOM/BED: D.2131 AUTHOR: FRANKIE SHEN PHYSICIAN: REFERRING PHYSICIAN: JOCELYNE JIMENEZ MD DATE OF SERVICE: 12/28/18 Discharge Plan Patient Name: MALINDA FAN [facility] [facility] 1935 Planned Disposition: Anticipated Discharge Date: Discharge Date: Expected LOS: Initial Reviewer: [id number] Initial Review Date: 12/25/2018 Generated: 12/28/18 10:14 am Comments DCP- Discharge Planning Updated by [id number]: Roya Lees on 12/25/18 2:[address] Patient Name: MALINDA FAN Admission Status: ER Accout number: [id number] Admission Date: 12-19-2018 : 1935 Admission Diagnosis: Attending: JOCELYNE JIMENEZ Current LOS: 6 Anticipated DC Date: Planned Disposition: Primary Insurance: MEDICARE A & B Discharge Planning Comments: CM MET WITH PATIENT ABOUT DC PLANNING/NEEDS. ASKED HIM ABOUT REHAB, HH AND EQUIPMENT. HE WANTS ME TO TALK TO HIS PRITI WHO SHOULD BE HERE IN APPROX AN HOUR. I ANTICIPATE HE MAY NEED REHAB VS. HH. CM WILL FOLLOW. Machinist Linotype: Roya Lees Last DP export: 12/25/18 2:14 Patient Name: MALINDA FAN Page [phone] at 0915 All edits/amendments must be made on the electronic document DICTATION DATE: 12/28/18913 BALING MACHINE TENDER: TANYA 12/28/18913 RPT#: [id number] DC DATE: STATUS: ADM IN [facility] [address] [place] [address] END OF REPORT
--- NOTE | 2018-12-28 09:22 | MORECARE ---
CASE MANAGEMENT DISCHARGE SUMMARY PATIENT: MALINDA FAN JR UNIT: [id number] ADM DATE: 12/19/18 AGE: 83 : 36 SEX: M ROOM/BED: D.2131 AUTHOR: FRANKIE SHEN PHYSICIAN: REFERRING PHYSICIAN: JOCELYNE JIMENEZ MD DATE OF SERVICE: 12/28/18 Discharge Plan Patient Name: MALINDA FAN Facility[facility]:[place] : 1935 Planned Disposition: Anticipated Discharge Date: Discharge Date: Expected LOS: Initial Reviewer: [id number] Initial Review Date: 12/25/2018 Generated: 12/28/18 10:22 am Comments DCP- Discharge Planning Updated by [id number]: Kandy Gao on 12/28/18 8:[address] LATE ENTRY FOR 12/06/18 Patient's spouse requested a list of care home facilities in [place]. CM met with patient and his spouse and provided PAXTON with list of SNF's. Spouse stated the patient is out of rehab days and she was private paying at [facility] the last few weeks he was there. He discharged home on Friday from [facility] and fell at home that night. She stated she is not going to be able to take him home when he is discharged. CM explained that if the patient was out of days at [facility] he will be out of days at all facilities. Explained the 60 day wellness period to reset his snf days. She verbalized understanding. She denied further questions at this time. CM will continue to follow and assist as needed with dc plans/needs. Kandy Gao RN, [facility] DCP- Discharge Planning Updated by [id number]: Roya Lees on 12/25/18 2:[address] Patient Name: MALINDA FAN Admission Status: ER Accout number: [id number] Admission Date: 12-19-2018 : 1935 Admission Diagnosis: Attending: JOCELYNE JIMENEZ Current LOS: 6 Anticipated DC Date: Planned Disposition: Primary Insurance: MEDICARE A & B Discharge Planning Comments: CM MET WITH PATIENT ABOUT DC PLANNING/NEEDS. ASKED HIM ABOUT REHAB, HH AND EQUIPMENT. HE WANTS ME TO TALK TO HIS PRITI WHO SHOULD BE HERE IN APPROX AN HOUR. I ANTICIPATE HE MAY NEED REHAB VS. HH. CM WILL FOLLOW. Casting Trucker: Roya VALENZUELA export: 12/28/18 8:15 Patient Name: MALINDA FAN Page [phone] at 0922 All edits/amendments must be made on the electronic document DICTATION DATE: 12/28/18920 METAL FURNITURE POLISHER: TANYA 12/28/18920 RPT#: [id number] DC DATE: STATUS: ADM IN [facility] [address] [place] [address] END OF REPORT
[2018-12-28 13:04] VITALS: BP 114/84; BP 161/48
[2018-12-28 17:19] VITALS: BP 182/93
--- NOTE | 2018-12-28 19:38 | NUR ---
ASSESSMENT COMPLETE, PT A&O. RESPERATIONS NON LABORED ON O2 AT 2 LITERS VIA NC. IV TO LEFT AC SL. PT CURRENTLY DENIES PAIN OR NEEDS AT THIS TIME, BED LOW, CL IN REACH.
[2018-12-28 20:00] VITALS: BP 165/84
--- NOTE | 2018-12-28 21:14 | NUR ---
HS MEDS GIVEN WITH FRESH ICE WATER. BS 134, NO COVERAGE PER S/S. PT DENIES PAIN OR NEEDS, BED LOW, CL IN REACH.
[2018-12-29] VITALS: BP 168/81
--- NOTE | 2018-12-29 03:38 | NUR ---
RESTING WITH EYES CLOSED, RESPERATIONS EVEN, NO S/S DISTRESS NOTED.
[2018-12-29 04:00] VITALS: BP 161/83
--- NOTE | 2018-12-29 06:24 | NUR ---
ASSISTED PT WITH USE OF URINAL.
--- NOTE | 2018-12-29 07:08 | NUR ---
REPORT RECEIVED. WILL CONTINUE WITH POC. PT CURRENTLY LYING SUPINE. CALL LIGHT W/I REACH. RR EVEN AND UNLABORED ON 2L 02. L.AC PIV IS SALINE LOCKED. PT IS AAO AND DENIES ANY NEEDS AT THIS TIME. NO S/S OF DISTRESS NOTED. WILL CTM.
[2018-12-29 12:05] VITALS: BP 141/73
--- NOTE | 2018-12-29 14:37 | NUR ---
ALERT AND ORIENTED X4. SITTING UP IN CHAIR. SINUS RYTHM PACED 71 ON TELEMETRY. DENIES ANY NEEDS. TAE STONE CONTINUES PLAN OF CARE AND SAFETY PRECAUTIONS.
[2018-12-29 16:00] VITALS: BP 166/82
--- NOTE | 2018-12-29 17:17 | MORECARE ---
CASE MANAGEMENT DISCHARGE SUMMARY PATIENT: MALINDA FAN JR UNIT: [id number] ADM DATE: 12/19/18 AGE: 83 : 36 SEX: M ROOM/BED: D.2131 AUTHOR: FRANKIE SHEN PHYSICIAN: REFERRING PHYSICIAN: JOCELYNE JIMENEZ MD DATE OF SERVICE: 12/29/18 Discharge Plan Patient Name: MALINDA FAN [facility] : 1935 Planned Disposition: Anticipated Discharge Date: Discharge Date: Expected LOS: Initial Reviewer: [id number] Initial Review Date: 12/25/2018 Generated: 12/29/18 6:16 pm Comments DCP- Discharge Planning Updated by [id number]: Kandy Gao on 12/28/18 8:[address] LATE ENTRY FOR 12/06/18 Patient's spouse requested a list of group home facilities in [place]. CM met with patient and his spouse and provided PAXTON with list of SNF's. Spouse stated the patient is out of rehab days and she was private paying at [facility] the last few weeks he was there. He discharged home on Friday from [facility] and fell at home that night. She stated she is not going to be able to take him home when he is discharged. CM explained that if the patient was out of days at [facility] he will be out of days at all facilities. Explained the 60 day wellness period to reset his snf days. She verbalized understanding. She denied further questions at this time. CM will continue to follow and assist as needed with dc plans/needs. Kandy Gao RN, [facility] DCP- Discharge Planning Updated by [email or web address]: Roya Lees on 12/25/18 2:[address] Patient Name: MALINDA FAN Admission Status: ER Accout number: [id number] Admission Date: 12-19-2018 : 1935 Admission Diagnosis: Attending: JOCELYNE JIMENEZ Current LOS: 6 Anticipated DC Date: Planned Disposition: Primary Insurance: MEDICARE A & B Discharge Planning Comments: CM MET WITH PATIENT ABOUT DC PLANNING/NEEDS. ASKED HIM ABOUT REHAB, HH AND EQUIPMENT. HE WANTS ME TO TALK TO HIS PRITI WHO SHOULD BE HERE IN APPROX AN HOUR. I ANTICIPATE HE MAY NEED REHAB VS. HH. CM WILL FOLLOW. Radiology Transporter: Roya Lees External Providers External Provider: [facility] Next Contact Date: 12/30/2018 Service Request Date: Service Type: Resolution: Reviewer: Comments: Coverage Notice Reviewer: [id number] Rizvi Notice Issued Date-Time: 12/29/2018 15:20 Notice Type: IM Discharge Notice Notice Delivered To: Family Member Relationship to Patient: Spouse Transport Analyst Name: PRITI FAN Delivery Method: HAND - Hand Delivered Suri Days: Prior Verbal Notification: Recipient Understood Notice: Yes Recipient Signature: Yes Med Rec Note Co-signed by Attending: Coverage Notice Comment: Reviewer: [id number] Romelia Rizvi Notice Issued Date-Time: 12/29/2018 15:20 Notice Type: Patient Choice Letter Notice Delivered To: Family Member Relationship to Patient: Spouse Transport Analyst Name: PRITI FAN Delivery Method: HAND - Hand Delivered Suri Days: Prior Verbal Notification: Recipient Understood Notice: Yes Recipient Signature: Yes Med Rec Note Co-signed by Attending: Coverage Notice Comment: MANOHAR Del Angel DP export: 12/28/18 8:22 Patient Name: MALINDA FAN Page [phone] at 1717 All edits/amendments must be made on the electronic document DICTATION DATE: 12/29/181715 BLOCK GREASER: TANYA 12/29/181715 RPT#: [id number] DC DATE: STATUS: ADM IN [facility] [address] [place] [address] END OF REPORT
--- NOTE | 2018-12-29 17:24 | MORECARE ---
CASE MANAGEMENT DISCHARGE SUMMARY PATIENT: MALINDA FAN JR UNIT: [id number] ADM DATE: 12/19/18 AGE: 83 : 36 SEX: M ROOM/BED: D.2197 AUTHOR: FRANKIE SHEN PHYSICIAN: REFERRING PHYSICIAN: JOCELYNE JIMENEZ MD DATE OF SERVICE: 12/29/18 Discharge Plan Patient Name: MALINDA FAN Facility: [facility]:[place] : 1935 Planned Disposition: Anticipated Discharge Date: Discharge Date: Expected LOS: Initial Reviewer: [email or web address] Initial Review Date: 12/25/2018 Generated: 12/29/18 6:24 pm Comments DCP- Discharge Planning Updated by [id number]: Apollo Rizvi on 12/29/18 4:[address] Patient Name: MALINDA FAN Encounter No: [id number] : 1935 Primary Insurance: MEDICARE A & B Anticipated DC Date: 12-30-2018 Planned Disposition: INPATIENT REHAB External Planned Provider: [facility] INPATIENT REHAB DCP follow-up note: CM MET WITH PT AND HIS SPOUSE AT THEIR REQUEST. PT'S SPOUSE REPORTS THE DOCTOR TOLD THEM TODAY THAT PT WILL DISCHARGE TOMORROW. CM REVIEWED PLAN, ASKED IF PT'S SPOUSE MADE ANY DECISIONS REGARDING [facility] PLACEMENT. PT'S SPOUSE STATES SHE HAS NOT AND ASKED CM TO GET PT INTO REHAB AT [facility] OR HERE AT [place]. CM REVIEWED PREVIOUS CASE MANAGEMENT NOTES WITH PT AND SPOUSE, WHICH INDICATED PT IS PRIVATE PAY AND HAS EXHAUSTED SENIOR LIVING DAYS UNTIL PT HAS 60 "WELL DAYS". PT'S ACKNOWLEDGED THE CONVERSTATION WITH PREVIOUS STRUCTURAL STEEL ENGINEER. SHE HAS CALLED [facility] WHO TOLD HER THAT THEY ARE NOT AN ASSISTED LIVING. SHE HAS CALLED [facility] AND IS WAITING A CALL BACK TO FIND OUT HOW MUCH THEY WOULD WANT TO TAKE CARE OF PT. THE [facility] AND [facility] ARE NOT PRIVATE ROOMS, [place] IS FULL AND [facility] IS EXPENSIVE BUT HAS PRIVATE ROOM AND WILL TAKE PT BACK. PT'S SPOUSE DOES NOT WANT CM TO LOOK INTO ANY OTHER SENIOR LIVING FACILITY. CHOICE FOR [facility] SIGNED. PT'S SPOUSE REPORTS IF PT CANNOT GET INTO INPATIENT REHAB AT [place], SHE WILL TAKE PT BACK TO [facility]. IMPORTANT MESSAGE FROM MEDICARE PROVIDED AND EXPLAINED. CM CALLED AND SPOKE TO DR. JIMENEZ'S NURSE, JEMAL, AND OBTAINED ORDER FOR INPATIENT REHAB PRESCREENING ORDER. CM ATTEMPTED TO NOTIFY [facility] OF INPATIENT REHAB AND DID NOT RECEIVE ANSWER. CM WAITING INPATIENT REHAB PRESCREENING FROM [facility] INPATIENT REHAB. IF DECLINED, PT AND SPOUSE PLAN TO ADMIT BACK TO [facility] FOR PRIVATE PAY ACCOUNT SERVICES COORDINATOR CARE. Apollo Rizvi, CASE MANAGEMENT DCP- Discharge Planning Updated by [id number]: Kandy Gao on 12/28/18 8:[address] LATE ENTRY FOR 12/06/18 Patient's spouse requested a list of prison facilities in [place]. CM met with patient and his spouse and provided [facility]XTON with list of SNF's. Spouse stated the patient is out of rehab days and she was private paying at [facility] the last few weeks he was there. He discharged home on Friday from [facility] and fell at home that night. She stated she is not going to be able to take him home when he is discharged. CM explained that if the patient was out of days at [place] [facility] he will be out of days at all facilities. Explained the 60 day wellness period to reset his snf days. She verbalized understanding. She denied further questions at this time. CM will continue to follow and assist as needed with dc plans/needs. Kandy Gao RN, [facility] DCP- Discharge Planning Updated by [id number]: Roya Lees on 12/25/18 2:[address] Patient Name: MALINDA FAN Admission Status: ER Accout number: [id number] Admission Date: 12-19-2018 : 1935 Admission Diagnosis: Attending: JOCELYNE JIMENEZ Current LOS: 6 Anticipated DC Date: Planned Disposition: Primary Insurance: MEDICARE A & B Discharge Planning Comments: CM MET WITH PATIENT ABOUT DC PLANNING/NEEDS. ASKED HIM ABOUT REHAB, HH AND EQUIPMENT. HE WANTS ME TO TALK TO HIS PRITI WHO SHOULD BE HERE IN APPROX AN HOUR. I ANTICIPATE HE MAY NEED REHAB VS. HH. CM WILL FOLLOW. Bottling Line Attendant: Roya Lees Coverage Notice Reviewer: [id number] - Apollo Rizvi Notice Issued Date-Time: 12/29/2018 15:20 Notice Type: IM Discharge Notice Notice Delivered To: Family Member Relationship to Patient: Spouse Cuprous Chloride Operator Name: PRITI FAN Delivery Method: HAND - Hand Delivered Suri Days: Prior Verbal Notification: Recipient Understood Notice: Yes Recipient Signature: Yes Med Rec Note Co-signed by Attending: Coverage Notice Comment: Reviewer: [id number] Romelia Rizvi Notice Issued Date-Time: 12/29/2018 15:20 Notice Type: Patient Choice Letter Notice Delivered To: Family Member Relationship to Patient: Spouse Cuprous Chloride Operator Name: PRITI FAN Delivery Method: HAND - Hand Delivered Suri Days: Prior Verbal Notification: Recipient Understood Notice: Yes Recipient Signature: Yes Med Rec Note Co-signed by Attending: Coverage Notice Comment: MANOHAR Del Angel DP export: 12/29/18 4:17 Patient Name: MALINDA FAN Page [phone] at 1724 All edits/amendments must be made on the electronic document DICTATION DATE: 12/29/181723 SOCIAL MEDIA MANAGER: TANYA 12/29/181723 RPT#: [id number] [place] DATE: STATUS: ADM IN [facility] [address] [place] [address] END OF REPORT
--- NOTE | 2018-12-29 19:02 | NUR ---
PT AWAKE UP TO BEDSIDE WITH ASSIST LUNGS CLEAR BUT DEMINISHED WITH TX JUST RINDERED SKIN WARM AND DRY BED IS LOW AND LOCKED WITH CALL LIGHT IN REACH
[2018-12-29 20:00] VITALS: BP 174/86
[2018-12-30] VITALS: BP 174/89
[2018-12-30 04:00] VITALS: BP 144/76
--- NOTE | 2018-12-30 07:11 | MORECARE ---
CASE MANAGEMENT DISCHARGE SUMMARY PATIENT: MALINDA FAN JR UNIT: [id number] ADM DATE: 12/19/18 AGE: 83 : 36 SEX: M ROOM/BED: D.8597 AUTHOR: FRANKIE SHEN PHYSICIAN: REFERRING PHYSICIAN: JOCELYNE JIMENEZ MD DATE OF SERVICE: 12/30/18 Discharge Plan Patient Name: MALINDA FAN Facility: [facility]:[place] : 1935 Planned Disposition: Inpatient Rehab Anticipated Discharge Date: 12/30/18 Discharge Date: Expected LOS: 11 Initial Reviewer: [id number] Initial Review Date: 12/25/2018 Generated: 12/30/18 8:10 am Comments DCP- Discharge Planning Updated by [id number]: Apollo Rizvi on 12/29/18 4:[address] Patient Name: MALINDA FAN Encounter No: [id number] : 1935 Primary Insurance: MEDICARE A & B Anticipated DC Date: 12-30-2018 Planned Disposition: INPATIENT REHAB External Planned Provider: [facility] DCP follow-up note: CM MET WITH PT AND HIS SPOUSE AT THEIR REQUEST. PT'S SPOUSE REPORTS THE DOCTOR TOLD THEM TODAY THAT PT WILL DISCHARGE TOMORROW. CM REVIEWED PLAN, ASKED IF PT'S SPOUSE MADE ANY DECISIONS REGARDING HALFWAY PLACEMENT. PT'S SPOUSE STATES SHE HAS NOT AND ASKED CM TO GET [facility] HERE AT [place]. CM REVIEWED PREVIOUS CASE MANAGEMENT NOTES WITH PT AND SPOUSE, WHICH INDICATED PT IS PRIVATE PAY AND HAS EXHAUSTED [facility] DAYS UNTIL PT HAS 60 "WELL DAYS". PT'S ACKNOWLEDGED THE CONVERSTATION WITH PREVIOUS RETOUCHING OPERATOR. SHE HAS CALLED [facility] WHO TOLD HER THAT THEY ARE NOT AN ASSISTED LIVING. SHE HAS CALLED [facility] AND IS WAITING A CALL BACK TO FIND OUT HOW MUCH THEY WOULD WANT TO TAKE CARE OF PT. THE [facility] AND [facility] ARE NOT PRIVATE ROOMS, [place] IS FULL AND [facility] EXPENSIVE BUT HAS PRIVATE ROOM AND WILL TAKE PT BACK. PT'S SPOUSE DOES NOT WANT CM TO LOOK INTO ANY OTHER [facility] FACILITY. [facility] SIGNED. PT'S SPOUSE REPORTS IF PT CANNOT GET INTO INPATIENT REHAB AT [place], SHE WILL TAKE [facility] BACK TO [facility]. IMPORTANT MESSAGE FROM MEDICARE PROVIDED AND EXPLAINED. CM CALLED AND SPOKE TO DR. JIMENEZ'S NURSE, JEMAL, AND OBTAINED ORDER FOR INPATIENT REHAB PRESCREENING ORDER. CM ATTEMPTED TO NOTIFY [facility]I OF INPATIENT REHAB AND DID NOT RECEIVE ANSWER. CM WAITING INPATIENT REHAB PRESCREENING FROM [facility] INPATIENT REHAB. IF DECLINED, PT AND SPOUSE PLAN TO ADMIT [facility] FOR PRIVATE PAY CUSTOMER SERVICE SPECIALIST CARE. Apollo Rizvi, CASE MANAGEMENT DCP- Discharge Planning Updated by [id number]: Kandy Gao on 12/28/18 8:[address] LATE ENTRY FOR 12/06/18 Patient's spouse requested a list of long term facilities in [place]. CM met with patient and his spouse and provided [facility]XTON with list of SNF's. Spouse stated the patient is out of rehab days and she was private paying at [facility] the last few weeks he was there. He discharged home on Friday from [facility] and fell at home that night. She stated she is not going to be able to take him home when he is discharged. CM explained that if the patient was out of days at [facility] he will be out of days at all facilities. Explained the 60 day wellness period to reset his snf days. She verbalized understanding. She denied further questions at this time. CM will continue to follow and assist as needed with dc plans/needs. Kandy Gao RN, [facility] DCP- Discharge Planning Updated by [id number]: Roya Lees on 12/25/18 2:[address] Patient Name: MALINDA FAN Admission Status: ER Accout number: [id number] Admission Date: 12-19-2018 : 1935 Admission Diagnosis: Attending: JOCELYNE JIMENEZ Current LOS: 6 Anticipated DC Date: Planned Disposition: Primary Insurance: MEDICARE A & B Discharge Planning Comments: CM MET WITH PATIENT ABOUT DC PLANNING/NEEDS. ASKED HIM ABOUT REHAB, HH AND EQUIPMENT. HE WANTS ME TO TALK TO HIS PRITI WHO SHOULD BE HERE IN APPROX AN HOUR. I ANTICIPATE HE MAY NEED REHAB VS. HH. CM WILL FOLLOW. Sample Sewer: Roya Lees Coverage Notice Reviewer: [id number] - Apollo Rizvi Notice Issued Date-Time: 12/29/2018 15:20 Notice Type: IM Discharge Notice Notice Delivered To: Family Member Relationship to Patient: Spouse Power Barker Name: PRITI FAN Delivery Method: HAND - Hand Delivered Suri Days: Prior Verbal Notification: Recipient Understood Notice: Yes Recipient Signature: Yes Med Rec Note Co-signed by Attending: Coverage Notice Comment: Reviewer: [id number] Romelia Rizvi Notice Issued Date-Time: 12/29/2018 15:20 Notice Type: Patient Choice Letter Notice Delivered To: Family Member Relationship to Patient: Spouse Power Barker Name: PRITI FAN Delivery Method: HAND - Hand Delivered Suri Days: Prior Verbal Notification: Recipient Understood Notice: Yes Recipient Signature: Yes Med Rec Note Co-signed by Attending: Coverage Notice Comment: MANOHAR Del Angel DP export: 12/29/18 4:24 Patient Name: MALINDA FAN Page [phone] at 0711 All edits/amendments must be made on the electronic document DICTATION DATE: 12/30/18709 NURSE MONITORING: TANYA 12/30/18709 RPT#: [id number] DC DATE: STATUS: ADM IN [facility] [address] [place] [address] END OF REPORT
[2018-12-30 09:00] VITALS: BP 174/93
--- NOTE | 2018-12-30 10:05 | NUR ---
BILATERAL FOOT DRESSINGS REMOVED. HEELS CLEANSED WITH WOUND CLEANSER, PATTED DRY WITH 4X4'S, APPLIED BETADINE TO HEEL WOUNDS AND COVERED WITH 4X4'S AND WRAPPED WITH KERLIX. FLOATED HEELS ON PILLOW.
[2018-12-30 13:01] VITALS: BP 162/77
--- NOTE | 2018-12-30 13:05 | NUR ---
REHAB PRESCREENING Rehab referral received and chart reviewed. Mr. Rock meets acute inpatient rehab admission criteria. He will be accepted to rehab when approvals are in place and his physicians feel he is appropriate to discharge. Thank you for this referral! Addis Hood, SHOE REPAIRER APPRENTICE Rehab PD
--- NOTE | 2018-12-30 13:18 | NUR ---
I have reviewed this patient and I concur with the Shift Assessment completed by the Licensed Practical Nurse today this shift.
--- NOTE | 2018-12-30 13:26 | NUR ---
Rehab Note- Acute INpatient Rehab prescreen order received. Met with the patient and his . They were going to discuss his rehab options and let us know their decision. SPoke with [facility] & they are in agreeance to come to [facility] Acute Inpatient REhab. Thank you for this referral! Celine Stinson RN Clinical Liaison, [facility] Rehab
--- NOTE | 2018-12-30 13:29 | NUR ---
Nutrition Follow-up: Pt reports good appetite/PO intake. Noted possible d/c plans for today. Diet: Diabetic Cardiac PO intake: 89% avg x 4 meals No new wt Last BM: 12/25 per chart Labs reviewed Meds noted: Lasix, Micro K, vitamin D, Humulin, Colace -Continue current diet as tolerated. -RD following.
--- NOTE | 2018-12-30 15:32 | MORECARE ---
CASE MANAGEMENT DISCHARGE SUMMARY PATIENT: MALINDA FAN JR UNIT: [id number] ADM DATE: 12/19/18 AGE: 83 : 36 SEX: M ROOM/BED: D.6312 AUTHOR: FRANKIE SHEN PHYSICIAN: REFERRING PHYSICIAN: JOCELYNE JIMENEZ MD DATE OF SERVICE: 12/30/18 Discharge Plan Patient Name: MALINDA FAN Facility: [facility]:[place] : 1935 Planned Disposition: Inpatient Rehab Anticipated Discharge Date: 12/30/18 Discharge Date: Expected LOS: 11 Initial Reviewer: [id number] Initial Review Date: 12/25/2018 Generated: 12/30/18 4:32 pm DCP- Discharge Planning Updated by [email or web address]: Apollo Rizvi on 12/29/18 4:[address] Patient Name: MALINDA FAN Encounter No: [id number] : 1935 Primary Insurance: MEDICARE A & B Anticipated DC Date: 12-30-2018 Planned Disposition: INPATIENT REHAB External Planned Provider: [facility] INPATIENT REHAB DCP follow-up note: CM MET WITH PT AND HIS SPOUSE AT THEIR REQUEST. PT'S SPOUSE REPORTS THE DOCTOR TOLD THEM TODAY THAT PT WILL DISCHARGE TOMORROW. CM REVIEWED PLAN, ASKED IF PT'S SPOUSE MADE ANY DECISIONS REGARDING [facility] PLACEMENT. PT'S SPOUSE STATES SHE HAS NOT AND ASKED CM TO GET PT INTO REHAB AT [facility] OR HERE AT [place]. CM REVIEWED PREVIOUS CASE MANAGEMENT NOTES WITH PT AND SPOUSE, WHICH INDICATED PT IS PRIVATE PAY AND HAS EXHAUSTED CUSTODIAL DAYS UNTIL PT HAS 60 "WELL DAYS". PT'S ACKNOWLEDGED THE CONVERSTATION WITH PREVIOUS FEATHER DUSTER WINDER. SHE HAS CALLED [facility] WHO TOLD HER THAT THEY ARE NOT AN ASSISTED LIVING. SHE HAS CALLED [facility] AND IS WAITING A CALL BACK TO FIND OUT HOW MUCH THEY WOULD WANT TO TAKE CARE OF PT. THE [facility] AND [facility] ARE NOT PRIVATE ROOMS, [place] IS FULL AND [facility] IS EXPENSIVE BUT HAS PRIVATE ROOM AND WILL TAKE PT BACK. PT'S SPOUSE DOES NOT WANT CM TO LOOK INTO ANY OTHER CUSTODIAL FACILITY. CHOICE FOR [facility] SIGNED. PT'S SPOUSE REPORTS IF PT CANNOT GET INTO INPATIENT REHAB AT [facility], SHE WILL TAKE PT BACK TO [facility]. IMPORTANT MESSAGE FROM MEDICARE PROVIDED AND EXPLAINED. CM CALLED AND SPOKE TO DR. JIMENEZ'S NURSE, JEMAL, AND OBTAINED ORDER FOR INPATIENT REHAB PRESCREENING ORDER. CM ATTEMPTED TO NOTIFY MADI OF INPATIENT REHAB AND DID NOT RECEIVE ANSWER. CM WAITING INPATIENT REHAB PRESCREENING FROM [facility] INPATIENT REHAB. IF DECLINED, PT AND SPOUSE PLAN TO ADMIT BACK TO [facility] FOR PRIVATE PAY [facility] CARE. Apollo Rizvi, CASE MANAGEMENT DCP- Discharge Planning Updated by [id number]: Kandy Gao on 12/28/18 8:[address] LATE ENTRY FOR 12/06/18 Patient's spouse requested a list of residential facilities in [place]. CM met with patient and his spouse and provided [facility] with list of SNF's. Spouse stated the patient is out of rehab days and she was private paying at [facility] the last few weeks he was there. He discharged home on Friday from [facility] and fell at home that night. She stated she is not going to be able to take him home when he is discharged. CM explained that if the patient was out of days at [facility] he will be out of days at all facilities. Explained the 60 day wellness period to reset his snf days. She verbalized understanding. She denied further questions at this time. CM will continue to follow and assist as needed with dc plans/needs. Kandy Gao RN, [facility] DCP- Discharge Planning Updated by [id number]: Roya Lees on 12/25/18 2:[address] Patient Name: MALINDA FAN Admission Status: ER Accout number: [id number] Admission Date: 12-19-2018 : 1935 Admission Diagnosis: Attending: JOCELYNE JIMENEZ Current LOS: 6 Anticipated DC Date: Planned Disposition: Primary Insurance: MEDICARE A & B Discharge Planning Comments: CM MET WITH PATIENT ABOUT DC PLANNING/NEEDS. ASKED HIM ABOUT REHAB, HH AND EQUIPMENT. HE WANTS ME TO TALK TO HIS PRITI WHO SHOULD BE HERE IN APPROX AN HOUR. I ANTICIPATE HE MAY NEED REHAB VS. HH. CM WILL FOLLOW. Rag Boiler: Roya Lees Coverage Notice Reviewer: [email or web address] - Apollo Rizvi Notice Issued Date-Time: 12/29/2018 15:20 Notice Type: IM Discharge Notice Notice Delivered To: Family Member Relationship to Patient: Spouse Tipple Oiler Name: PRITI FAN Delivery Method: HAND - Hand Delivered Suri Days: Prior Verbal Notification: Recipient Understood Notice: Yes Recipient Signature: Yes Med Rec Note Co-signed by Attending: Coverage Notice Comment: Reviewer: [email or web address] Romelia Rizvi Notice Issued Date-Time: 12/29/2018 15:20 Notice Type: Patient Choice Letter Notice Delivered To: Family Member Relationship to Patient: Spouse Tipple Oiler Name: PRITI FAN Delivery Method: HAND - Hand Delivered Suri Days: Prior Verbal Notification: Recipient Understood Notice: Yes Recipient Signature: Yes Med Rec Note Co-signed by Attending: Coverage Notice Comment: MANOHAR Del Angel DP export: 12/30/18 6:11 Patient Name: MALINDA FAN Page [id number] at 1532 All edits/amendments must be made on the electronic document DICTATION DATE: 12/30/181531 CELERY CUTTER: TANYA 12/30/18 153 RPT#: [id number] DC DATE: STATUS: ADM IN [facility] [address] [place] [address] END OF REPORT
--- NOTE | 2018-12-30 15:49 | NUR ---
PAGE INTO DR VANN TO SEE ABOUT CONTINUING DUONEB. AWAITING CALL BACK.
--- NOTE | 2018-12-30 15:52 | NUR ---
NO FLU SHOT UPON ADMIT, NOT GIVEN AT DISCHARGE PATIENT HAD PNEUMONIA.
[2018-12-30] MEDS ORDERED: CATAPRES0.1 MG PO (15:55)
[2018-12-30] MEDS ORDERED: IPRAT-ALBUT 0.5-3 ML UPD (15:55)
[2018-12-30] MEDS ORDERED: ACETAMINOPHEN325 MG PO (15:56)
[2018-12-30] MEDS ORDERED: CALMOSEPTINE OI71 GM TOPICAL (15:56)
--- NOTE | 2018-12-30 16:05 | NUR ---
DR VANN TO CALL BACK WITH ORDERS TO CONTINUE DUONEB.
--- NOTE | 2018-12-30 17:04 | NUR ---
REPORT GIVEN TO REKHA COLES IN REHAB.
--- NOTE | 2018-12-30 18:20 | NUR ---
LEFT AC 22G IV DC'D WITH CATH INTACT. TELEMETRY DC'D. DISCHARGE EXPLAINED TO PT AND PT'S . CHART COPY SIGNED.
--- NOTE | 2018-12-30 18:40 | NUR ---
PT TAKEN DOWN VIA BED TO REHAB ACCOMPNAIED BY .
== END 2018-12-30 18:56 | DRG 252 ==
LOC: D.ER 17:56 → D.M2 20:59
PROVIDERS: Emergency Medicine; Family Medicine; Internal Medicine Nephrology; Surgery; ADMIT Family Medicine; ATTEND Family Medicine
PROC: 05PY0YZ Removal of Other Device from Upper Vein, Open Approach (ICD-10-PCS; principal; 2018-12-25 09:00)
DX: I13.0 Hypertensive heart and chronic kidney disease with heart failure and stage 1 through stage 4 chronic kidney disease, or unspecified chronic kidney disease (principal); J18.1 Lobar pneumonia, unspecified organism; N18.4 Chronic kidney disease, stage 4 (severe); N17.9 Acute kidney failure, unspecified; J98.11 Atelectasis; R53.1 Weakness; E11.22 Type 2 diabetes mellitus with diabetic chronic kidney disease; E03.9 Hypothyroidism, unspecified; I25.10 Atherosclerotic heart disease of native coronary artery without angina pectoris; G47.30 Sleep apnea, unspecified; I50.9 Heart failure, unspecified; I48.91 Unspecified atrial fibrillation; M35.3 Polymyalgia rheumatica; E87.6 Hypokalemia; D63.1 Anemia in chronic kidney disease

== ENCOUNTER 2018-12-30 16:16 | Inpatient (IN) | payer MEDICARE, BC ==
[~2018-12-30] VITALS: Ht 172.7 cm; Wt 83.9 kg
[~2018-12-30 16:16] MED LIST changes: +ACETAMINOPHEN325 MG PO; +CALMOSEPTINE OI71 GM TOPICAL; +COLACE100 MG PO; +COREG12.5 MG PO; +DULCOLAX5 MG PO; +EPOGEN4000 U/ML SC; +FUROSEMIDE20 MG PO; +IPRAT-ALBUT 0.5-3 ML UPD; +K-DUR20 MEQ PO; +KLOR-CON 1010 MEQ PO; +LEXAPRO5 MG PO; +MELATONIN 3 MG1 TAB PO; +PEPCID40 MG PO; +TRAZODONE HCL150 MG PO; +VITAMIN D31000 UNIT PO
--- NOTE | 2018-12-30 19:40 | NUR ---
PT SITTING UP IN BED. CL IN REACH. RESP EVEN AND UNLABORED. A/O X4. LUNGS DIMINISHED. BOWEL HYPOACTIVE X4. BED IN LOW SIDE RAILS X3. LOWER [place]. PT WEARS GLASSES. ASSESSMENT COMPLETED. DENIES NEEDS AT THIS TIME. O2 ON 2L VIA NC. WILL CONTINUE TO MONITOR.
[2018-12-30 21:20] VITALS: BP 168/84
--- NOTE | 2018-12-30 22:21 | NUR ---
CHANGED DRESSING TO BILATERAL HEELS. 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 HOME CPAP PLACED ON PT. WCTM
[2018-12-30 22:59] VITALS: BP 168/84; BMI 28.1
--- NOTE | 2018-12-31 02:00 | NUR ---
ASSISTED TO AND FROM BATHROOM. CL IN REACH. BACK IN BED. DENIES FURTHER NEEDS. CPAP BACK ON. WCTM
--- NOTE | 2018-12-31 04:24 | NUR ---
QUIET HOURS. PT LYING IN BED EYES CLOSED RESTING. HOME CPAP IN USE. RR EVEN AND UNLABORED. CL IN REACH
--- NOTE | 2018-12-31 04:26 | NUR ---
I have reviewed this patient and I concur with the Shift Assessment completed by the Licensed Practical Nurse today this shift.
[2018-12-31 06:51] LABS: BASOPHILS 0.5 % (0-2); EOSINOPHILS 0.8 % (0-7); HEMATOCRIT 33.7 % (42.0-54.0); HEMOGLOBIN 10.7 g/dL (13.5-17.5); IMMATURE GRANULOCYTES 0.4 % (0-5); LYMPHOCYTES 22.3 % (15-50); MCH 29.2 pg (26.0-34.0); MCHC 31.8 g/dL (31.0-37.0); MCV 91.8 fL (80.0-100.0); MEAN PLATELET VOLUME 9.2 fL (7.4-10.4); MONOCYTES 8.3 % (2-11); NEUTROPHILS 67.7 % (40-80); PLATELET COUNT 143 10x3/uL (130-400); RBC 3.67 10x6/uL (4.20-6.10); RDW 15.4 % (11.5-14.5); WBC 7.5 10x3/uL (4.8-10.8)
[2018-12-31 07:20] LABS: ANION GAP 12.1 mmol/L (8-16); CARBON DIOXIDE 28.6 mmol/L (21.0-32.0); CREATININE - SERUM 1.9 mg/dL (0.6-1.3); POTASSIUM - SERUM 3.7 mmol/L (3.5-5.1)
[2018-12-31 08:00] VITALS: BP 176/84
[2018-12-31 09:44] VITALS: Ht 172.7 cm; Wt 83.9 kg
--- NOTE | 2018-12-31 14:48 | NUR ---
PT WAS ADMITTED TO REHAB WITH A HEALING STAGE 3 PRESSURE INJURY ON HIS LEFT HEEL AND A DRIED BLOOD BLISTER ON RIGHT HEEL. CURRENTLY BOTH HEELS ARE BEING PAINTED WITH BETADINE AND BEING PROTECTED WITH GAUZE/KERLIX AND HEEL PROTECTORS. HE HAD A SCABBED SPOT ON HIS RIGHT BUTTOCK BUT THE SKIN IS INTACT UNDERNEATH THE SCAB. CALMOSEPTINE CREAM WAS BEING USED FOR THIS AREA. RECOMMEND CONTINUING WITH THE CURRENT TREATMENT (BETADINE TO HEELS AND CALMOSEPTINE OR SKIN PROTECTOR TO BUTTOCK). WOUND CARE WILL CONTINUE MONITORING.
[2018-12-31 19:22] VITALS: BP 162/66
--- NOTE | 2018-12-31 19:45 | NUR ---
PT LYING IN BED COMPLAINING OF HAVING HARD TIME BREATHING. PULLED PATIENT UP IN BED AND PT WANTED CPAP PUT ON. HOME CPAP PLACED ON PATIENT. O2 SAT WNL. WILL CONTINUE TO MONITOR. CL IN REACH. DENIES FURTHER NEEDS. A/O X4.
--- NOTE | 2019-01-01 03:30 | NUR ---
ASSISTED TO AND FROM BATHROOM. PT BACK IN BED. BED ALARM ON. CL IN REACH. DENIES FURTHER NEEDS. BED IN LOW SIDE RAILS X2. HEEL PROTECTORS ON. WCTM
--- NOTE | 2019-01-01 04:38 | NUR ---
I have reviewed this patient and I concur with the Shift Assessment completed by the Licensed Practical Nurse today this shift.
--- NOTE | 2019-01-01 07:27 | NUR ---
CONVENIENCE STORE MANAGER REPORTS BP 191/95, THE PATIENT HAS CATAPRESS, AWAITING TO REMOVE FROM THE PYXIS.
[2019-01-01 07:54] LABS: BASOPHILS 0.5 % (0-2); EOSINOPHILS 1.1 % (0-7); HEMOGLOBIN 10.7 g/dL (13.5-17.5); IMMATURE GRANULOCYTES 0.3 % (0-5); LYMPHOCYTES 19.8 % (15-50); MCH 28.9 pg (26.0-34.0); MCHC 31.5 g/dL (31.0-37.0); MCV 91.9 fL (80.0-100.0); MEAN PLATELET VOLUME 9.7 fL (7.4-10.4); MONOCYTES 9.6 % (2-11); NEUTROPHILS 68.7 % (40-80); PLATELET COUNT 142 10x3/uL (130-400); RDW 15.4 % (11.5-14.5); WBC 7.4 10x3/uL (4.8-10.8)
[2019-01-01 07:57] VITALS: BP 191/95
--- NOTE | 2019-01-01 07:59 | NUR ---
The patient received his clonidine 0.1 mg PO now for elevated BP, will recheck.
[2019-01-01 08:08] LABS: ANION GAP 11.3 mmol/L (8-16); CALCIUM 9.1 mg/dL (8.5-10.1); CARBON DIOXIDE 29.3 mmol/L (21.0-32.0); CREATININE - SERUM 1.9 mg/dL (0.6-1.3); POTASSIUM - SERUM 3.6 mmol/L (3.5-5.1)
--- NOTE | 2019-01-01 08:54 | NUR ---
BP RECHECK 162/77 PER FERNANDO CABELLO.
--- NOTE | 2019-01-01 09:49 | NUR ---
The patient is compliant with medications this am.
--- NOTE | 2019-01-01 10:04 | NUR ---
Looked in on the patient and he requested a blanket around his shoulders. Provided a blanket, he denies any other needs.
--- NOTE | 2019-01-01 11:11 | NUR ---
PATIENT ADMITTED TO REHAB FROM ACUTE FLOOR. DR. WEIR IS PATIENT PCP. AT DISCHARGE PATIENT WILL DISCHARGE BACK TO [facility] WHERE THE REQUEST. WILL CONTINUE TO FOLLOW WITH PATIENT.
--- NOTE | 2019-01-01 13:44 | NUR ---
Assisted the patient to the toilet. He also called for assist to go back to bed.
--- NOTE | 2019-01-01 18:39 | NUR ---
Bilateral heel cleansed with betadine, dressing is 4x4's and wrapped with kerlix.
[2019-01-01 19:00] VITALS: BP 144/69
--- NOTE | 2019-01-01 19:21 | NUR ---
PT IS RESTING IN BED WITH EYES OPEN. ALERT AND ORIENTED X 3. DENIES ANY PAIN OR DISCOMFORT AT THIS TIME. NO NEEDS VOICED. O2 IS ON @ 2LPM PER NC. NO SOB NOTED. PT IS VERY [place]. SR'S ARE UP X 2 IN BED. CALL LIGHT AND BEDSIDE TABLE ARE WITHIN EASY REACH.
--- NOTE | 2019-01-01 21:11 | NUR ---
PT IS RESTING QUIETLY IN BED WITH EYES CLOSED. NO DISTRESS NOTED.
--- NOTE | 2019-01-02 00:01 | NUR ---
RESTING IN BED WITH EYES CLOSED.
--- NOTE | 2019-01-02 01:15 | NUR ---
I have reviewed this patient and I concur with the Shift Assessment completed by the Licensed Practical Nurse today this shift.
--- NOTE | 2019-01-02 05:11 | NUR ---
RESTING IN BED WITH EYES CLOSED.
[2019-01-02 07:46] VITALS: BP 175/68
--- NOTE | 2019-01-02 08:30 | NUR ---
AM MEDS GIVEN ORDERED.
--- NOTE | 2019-01-02 14:23 | NUR ---
FAMILY MEMBER COME TO VISIT. CALL LIGHT IN REACH.
--- NOTE | 2019-01-02 18:17 | NUR ---
I have reviewed this patient and I concur with the Shift Assessment completed by the Licensed Practical Nurse today this shift.
[2019-01-02 19:30] VITALS: BP 133/61
--- NOTE | 2019-01-02 19:30 | NUR ---
PT IS RESTING IN WC IN HIS ROOM WATCHING TV. ALERT AND ORIENTED X 3. VOICED COMPLAINT OF ROXANNE FOOT PAIN LEVEL OF 7. PT IS VERY [place]. DRESSINGS TO ROXANNE HEELS ARE CDI. NO DRAINAGE NOTED. O2 IS ON @ 2LPM PER NC. PULSE OX IS 96%. CALL LIGHT AND BEDSIDE TABLE ARE WITHIN EASY REACH.
--- NOTE | 2019-01-02 22:12 | NUR ---
PT RESTING QUIETLY IN BED WITH EYES CLOSED.
--- NOTE | 2019-01-03 00:54 | NUR ---
I have reviewed this patient and I concur with the Shift Assessment completed by the Licensed Practical Nurse today this shift.
--- NOTE | 2019-01-03 03:49 | NUR ---
RESTING IN BED WITH EYES CLOSED.
--- NOTE | 2019-01-03 05:50 | NUR ---
PT IS RESTING IN BED WITH EYES CLOSED. AWOKE EASILY TO VERBAL STIMULI. TOLERATED AM MEDS WITHOUT DIFFICULTY.
[2019-01-03 08:00] VITALS: BP 179/86
--- NOTE | 2019-01-03 08:00 | NUR ---
SHIFT ASSMT COMPLETED.CL IN REACH.BREAKFAST GIVEN.
--- NOTE | 2019-01-03 12:00 | NUR ---
REMAINS SITTING UP IN WC.CL IN REACH.
--- NOTE | 2019-01-03 16:00 | NUR ---
WILL CONT TO MONITOR.
[2019-01-03 16:46] VITALS: BP 148/76
[2019-01-03 19:04] VITALS: BP 117/77
--- NOTE | 2019-01-03 19:24 | NUR ---
PT IS RESTING IN BED WITH EYES OPEN. ALERT AND ORIENTED X 3. NO COMPLAINTS OR NEEDS VOICED. VSS. ROXANNE HEELS ARE ELEVATED ON A PILLOW AND HEEL PROTECTORS ARE ON. SR'S ARE UP X 2 IN BED. CALL LIGHT AND BEDSIDE TABLE ARE WITHIN EASY REACH.
--- NOTE | 2019-01-03 21:33 | NUR ---
PT RESTING IN BED WITH EYES OPEN. NO NEEDS VOICED. DRESSINGS TO ROXANNE HEELS CHANGED PER ORDERS. CPAP APPLIED.
--- NOTE | 2019-01-04 00:25 | NUR ---
RESTING IN BED WITH EYES CLOSED. CPAP ON. NO DISTRESS NOTED.
--- NOTE | 2019-01-04 02:51 | NUR ---
I have reviewed this patient and I concur with the Shift Assessment completed by the Licensed Practical Nurse today this shift.
--- NOTE | 2019-01-04 04:50 | NUR ---
PT RESTING IN BED WITH EYES CLOSED. NO DISTRESS NOTED.
[2019-01-04 05:37] LABS: BASOPHILS 0.9 % (0-2); EOSINOPHILS 1.1 % (0-7); IMMATURE GRANULOCYTES 0.2 % (0-5); LYMPHOCYTES 23.2 % (15-50); MCH 28.7 pg (26.0-34.0); MCHC 31.3 g/dL (31.0-37.0); MEAN PLATELET VOLUME 9.4 fL (7.4-10.4); MONOCYTES 9.6 % (2-11); PLATELET COUNT 142 10x3/uL (130-400); RBC 3.48 10x6/uL (4.20-6.10); RDW 15.5 % (11.5-14.5); WBC 6.6 10x3/uL (4.8-10.8)
[2019-01-04 05:51] LABS: ANION GAP 12.4 mmol/L (8-16); CALCIUM 8.7 mg/dL (8.5-10.1); CARBON DIOXIDE 26.5 mmol/L (21.0-32.0); CREATININE - SERUM 2.1 mg/dL (0.6-1.3); POTASSIUM - SERUM 3.9 mmol/L (3.5-5.1)
[2019-01-04 08:00] VITALS: BP 145/67
--- NOTE | 2019-01-04 13:17 | NUR ---
SITTING UP IN WC IN ROOM. OXYGEN IN USE. NO S/S DISTRESS. CALL LIGHT IN REACH
--- NOTE | 2019-01-04 18:16 | NUR ---
SITTING IN RECLINER CHAIR WATCHING TV. DENIES NEEDS. CALL LIGHT IN REACH
--- NOTE | 2019-01-04 18:55 | NUR ---
PT YELLED OUT FOR HELP. PT FOUND LYING ON THE FLOOR IN HIS ROOM BY THE WALL OPPOSITE OF THE FOOT OF HIS BED. SMALL AMOUNT OF BLOOD NOTED ON THE FLOOR. PT STATES HIS HEAD HURTS. NO OTHER INJURIES VOICED. 6 CM HEMATOMA NOTED TO PTS RIGHT SCALP. SITE CLEANSED WITH WOUND MARKETING ANALYTICS LEAD. NO ACTIVE BLEEDING NOTED. PT ASSISTED UP TO WC, AND NOTIFIED TO NOT TRY AND WALK BY HIMSELF AGAIN. HE VOICED UNDERSTANDING. DENIES NEED TO VOID AT THIS TIME. VSS. DR SPEAR NOTIFIED, AND HEAD CT ORDERED. DAVI BURNSB, PTS DAUGHTER ALSO NOTIFIED. SHE STATES SHE WILL CALL HIS .
[2019-01-04 19:26] VITALS: BP 155/81
--- NOTE | 2019-01-04 21:00 | NUR ---
PT IS RESTING IN BED WITH EYES OPEN. MOVED TO ROOM 1113B TO BE CLOSER TO THE NURSES STATION. PT IS RESTING COMFORTABLY WITHOUT COMPLAINT. HEMATOMA ON SCALP IS NOTICIBLY SMALLER AT THIS TIME. VSS. NEURO CHECKS ARE WNL.
--- NOTE | 2019-01-04 22:21 | NUR ---
I have reviewed this patient and I concur with the Shift Assessment completed by the Licensed Practical Nurse today this shift.
--- NOTE | 2019-01-05 01:35 | NUR ---
RESTING IN BED WITH EYES CLOSED. AROUSES EASILY TO VERBAL STIMULI. NO NEEDS VOICED. NEURO CHECKS WNL.
--- NOTE | 2019-01-05 02:46 | NUR ---
QUIET HOURS. PT LYING IN BED ON RIGHT SIDE EYES CLOSED RESTING QUIETLY. HOME CPAP IN USE. RR EVEN AND UNLABORED. CL IN REACH.
--- NOTE | 2019-01-05 06:22 | NUR ---
PT RESTING IN BED WITH EYES CLOSED. AWOKE EASILY TO VERBAL STIMULI. NEURO CHECKS WNL. FSBS WNL. TOLERATED AM MEDS WITHOUT DIFFICULTY.
[2019-01-05 08:02] VITALS: BP 159/81
--- NOTE | 2019-01-05 11:18 | NUR ---
Nutrition Follow-up: Diet: Diabetic PO intake: 75-100% all meals Last BM: 01/04/19. Wt: 185# (12/31/18), no new wt. Labs noted: Glu 154. Meds noted: lasix, SSI. Noted stage II PU to heels and buttocks in nursing skin assessment. Continue current diet. Will add Mark BID for nutritionally aided wound healing. RD Following.
--- NOTE | 2019-01-05 11:27 | NUR ---
ALERT AND ORIENTED. FORGETFUL. PARTICIPATED IN THERAPY THIS AM. IN ROOM AT THIS TIME. PAIN MED GIVEN. SITTING IN WC WITH CHAIR ALARM ON. CL IN REACH.
--- NOTE | 2019-01-05 16:31 | NUR ---
RESTING WO C/O PAIN. NO CHANGE IN ASSESSMENT. CL IN REACH. BED ALARM ON.
[2019-01-05 19:00] VITALS: BP 154/88
--- NOTE | 2019-01-05 19:00 | NUR ---
GREETED PATIENT AND INTRODUCED MYSELF. PATIENT IS LAYING IN BED RESTING AT THIS TIME. O2 AT 2L IN USE VIA NC. REPIRATIONS EVEN. NO S/S OF DISTRESS. CALL LIGHT IN REACH.
--- NOTE | 2019-01-05 23:19 | NUR ---
PT. RESTING QUIETLY WITH EYES CLOSED. RESPIRATIONS EVEN. NO S/S OF DISTRESS. CPAP MACHINE IN USE. CALL LIGHT IN REACH.
--- NOTE | 2019-01-06 03:36 | NUR ---
PTS. PERSONAL CPAP MACHINE IS OVER HEATING. PUT PATIENT BACK ON O2 AT 2L VIA NC. CONTACTED RESPIRATORY TO GIVE PT. PRN BREATHING TREATMENT.
[2019-01-06 05:47] LABS: BASOPHILS 0.9 % (0-2); EOSINOPHILS 1.3 % (0-7); HEMATOCRIT 34.6 % (42.0-54.0); HEMOGLOBIN 10.8 g/dL (13.5-17.5); IMMATURE GRANULOCYTES 0.1 % (0-5); LYMPHOCYTES 15.2 % (15-50); MCH 28.8 pg (26.0-34.0); MCHC 31.2 g/dL (31.0-37.0); MCV 92.3 fL (80.0-100.0); MEAN PLATELET VOLUME 8.8 fL (7.4-10.4); MONOCYTES 8.5 % (2-11); PLATELET COUNT 139 10x3/uL (130-400); RBC 3.75 10x6/uL (4.20-6.10); RDW 15.3 % (11.5-14.5); WBC 6.9 10x3/uL (4.8-10.8)
[2019-01-06 06:05] LABS: ANION GAP 14.3 mmol/L (8-16); CALCIUM 9.4 mg/dL (8.5-10.1); CARBON DIOXIDE 25.7 mmol/L (21.0-32.0); CREATININE - SERUM 2.1 mg/dL (0.6-1.3)
--- NOTE | 2019-01-06 07:26 | NUR ---
ALERT AND OREINTED. RESTING WO DISTRESS. RESP EVEN AND UNLABORED. CL IN REACH.
[2019-01-06 07:48] VITALS: BP 164/78
--- NOTE | 2019-01-06 12:04 | NUR ---
PARTICIPATED IN THERAPY ELADIO ZAMORA.
--- NOTE | 2019-01-06 15:31 | NUR ---
NO CHANGE IN ASSESSMENT. RESTING WO DISTRESS. RESP EVEN AND UNLABORED. CL IN REACH.
--- NOTE | 2019-01-06 15:47 | NUR ---
CARE TEAM MEETING: PATIENT PROGRESSING IN THEAPY . WILL CONTINUE TO FOLLOW WITH PATIENT. TENATIVE DISCHARGE DATE IS 01/13/19.
--- NOTE | 2019-01-06 19:52 | NUR ---
GREETED PATIENT AND INTRODUCED MYSELF HIS NURSE. PATIENT IS SITTING IN WHEELCHAIR NEXT TO BED. O2 AT 2L IN USE VIA NC. RESPIRATIONS EVEN. NO S/S OF DISTRESS. CALL LIGHT IN REACH.
[2019-01-06 21:32] VITALS: BP 162/72
--- NOTE | 2019-01-07 04:20 | NUR ---
PT. RESTING QUIETLY WITH EYES CLOSED. CPAP IN USE. RESPIRATIONS EVEN. NO S/S OF DISTRESS. SR UP X2. BED IN LOWEST POSITION. CALL LIGHT IN REACH.
--- NOTE | 2019-01-07 08:00 | NUR ---
PATIENT IS ALERT WITH CONFUSION. C-PAP TAKEN OFF FOR BREAKFAST. SITTING UP IN BED TO EAT BREAKFAST. BED ALARM ON. CALL LIGHT WITHIN REACH. VOICES NO NEEDS AT THIS TIME. WILL CONTINUE WITH PLAN OF CARE
[2019-01-07 08:34] VITALS: BP 172/86
--- NOTE | 2019-01-07 10:43 | NUR ---
PT IN THERAPY NO TX GIVEN
--- NOTE | 2019-01-07 11:02 | NUR ---
OCCUPATIONAL THERAPIST WORKING WITH PATIENT. PATIENT HAD A LARGE INCONT OF BOWEL AND URINE. PATIENT WASHED UP AT SINK AND CLOTHES CHANGED. DRESSING TO RIGHT HEAL CHANGED DUE TO BEING SOILED.
--- NOTE | 2019-01-07 11:58 | NUR ---
THIS NURSE TALKED TO DR LOPEZ IN REGARDS TO CONSULT FOR SUBGALEAL HEMATOMA/CONFUSION
--- NOTE | 2019-01-07 13:50 | NUR ---
SPEECH THERAPIST IN PATIENTS ROOM. WORKING WITH PATIENT.
--- NOTE | 2019-01-07 20:00 | NUR ---
PATIENT RECEIVED SITTING UP IN WHEELCHAIR AT BEDSIDE. ASSESSMENT & VITAL SIGNS DONE. CALL LIGHT WITHIN REACH. CHAIR ALARM ON. WILL CONTINUE TO MONITOR.
[2019-01-07 21:12] VITALS: BP 134/59
--- NOTE | 2019-01-08 02:12 | NUR ---
I have reviewed this patient and I concur with the Shift Assessment completed by the Licensed Practical Nurse today this shift.
--- NOTE | 2019-01-08 02:57 | NUR ---
PATIENT ALARM SOUNDING. PATIENT STANDING ON SIDE OF BED TRYING TO USE THE URINAL. THIS NURSE WENT INTO ROOM, ASSISTED PATIENT TO STAND. PATIENT HAD 200 CC OF URINE IN URINAL. PATIENT RETURNED TO BED. CPAP BACK ON. ALARM ON. CALL LIGHT WITHIN REACH. WILL CONTINUE TO MONITOR.
[2019-01-08 07:47] LABS: BASOPHILS 0.9 % (0-2); EOSINOPHILS 1.7 % (0-7); HEMATOCRIT 32.2 % (42.0-54.0); IMMATURE GRANULOCYTES 0.4 % (0-5); LYMPHOCYTES 20.9 % (15-50); MCH 28.5 pg (26.0-34.0); MCHC 31.1 g/dL (31.0-37.0); MCV 91.7 fL (80.0-100.0); MEAN PLATELET VOLUME 9.3 fL (7.4-10.4); MONOCYTES 8.3 % (2-11); NEUTROPHILS 67.8 % (40-80); PLATELET COUNT 131 10x3/uL (130-400); RBC 3.51 10x6/uL (4.20-6.10); RDW 15.4 % (11.5-14.5); WBC 5.5 10x3/uL (4.8-10.8)
[2019-01-08 07:50] LABS: ANION GAP 10.5 mmol/L (8-16); CALCIUM 9.1 mg/dL (8.5-10.1); POTASSIUM - SERUM 3.5 mmol/L (3.5-5.1)
[2019-01-08 08:00] VITALS: BP 166/95
--- NOTE | 2019-01-08 10:07 | NUR ---
PT IN THERAPY NO TX GIVEN
--- NOTE | 2019-01-08 13:42 | NUR ---
SITTING IN WC IN ROOM VISITING WITH FAMILY. CALL LIGHT IN REACH IF NEEDED. WEARING OXYGEN. HAVING LOOSE STOOLS AT TIMES.
--- NOTE | 2019-01-08 17:50 | NUR ---
SITTING UP WC IN ROOM EATING SUPPER. STILL WEARING OXYGEN 2LNC. BED AND CHAIR ALARM IN PLACE. CALL LIGHT IN REACH
--- NOTE | 2019-01-08 20:00 | NUR ---
PATIENT RECEIVED SITTING UP IN WHEELCHAIR AT BEDSIDE. CHAIR ALARM ON. ASSESSMENT & VITAL SIGNS DONE. DRESSINGS TO BOTH HEELS DRY & INTACT. NO C/O PAIN OR DISTRESS. WILL CONTINUE TO MONITOR.
[2019-01-08 20:34] VITALS: BP 169/70
--- NOTE | 2019-01-09 02:17 | NUR ---
I have reviewed this patient and I concur with the Shift Assessment completed by the Licensed Practical Nurse today this shift.
--- NOTE | 2019-01-09 03:57 | NUR ---
PATIENT EYES CLOSED. RESPIRATIONS 18 & EVEN. BED LOW. ALARM ON. CALL LIGHT WITHIN REACH. WILL CONTINUE TO MONITOR.
--- NOTE | 2019-01-09 05:40 | NUR ---
PATIENT FSBS 88. ATE ALL OF HIS SNACK. CALL LIGHT WITHIN REACH. WILL CONTINUE TO MONITOR.
[2019-01-09 08:00] VITALS: BP 174/73
--- NOTE | 2019-01-09 08:00 | NUR ---
PATIENT IS ALERT. CONFUSED ON WHICH HOSPITAL HE IS IN AND SITUATION. BED ALARM ON. CALL LIGHT WITHIN REACH. VOICES NO NEEDS AT THIS TIME. WILL COTNINUE WITH PLAN OF CARE.
--- NOTE | 2019-01-09 10:10 | NUR ---
PATIENT IN REHAB ROOM. WORKING WITH PHYSICAL THERAPIST. DENIES ANY PAIN/DISC AT THIS TIME.
--- NOTE | 2019-01-09 19:08 | NUR ---
PATIENT RECEIVED SITTING UP IN BED. PATIENT ASSESSMENT & VITAL SIGNS DONE. PATIENT REQUEST FOR CPAP. CPAP APPLIED. BED LOW. CALL LIGHT & URINAL WITHIN REACH. WILL CONTINUE TO MONITOR.
[2019-01-09 20:00] VITALS: BP 165/74
--- NOTE | 2019-01-10 02:57 | NUR ---
I have reviewed this patient and I concur with the Shift Assessment completed by the Licensed Practical Nurse today this shift.
--- NOTE | 2019-01-10 04:36 | NUR ---
QUIET HOURS. PT LYING IN BED EYES CLOSED RESTING QUIETLY. RR EVEN AND UNLABORED. CL IN REACH
[2019-01-10 08:00] VITALS: BP 162/81
--- NOTE | 2019-01-10 08:30 | NUR ---
PATIENT IS ALERT/ORIENT. USING CALL LIGHT FOR NEEDS. VOICES NO NEEDS AT THIS TIME. WILL CONTINUE WITH PLAN OF CARE.
--- NOTE | 2019-01-10 10:32 | NUR ---
PATIENT HELPED OUT OF BED. MODERATE ASST OF ON INTO WHEELCHAIR. LINENS ON BED CHANGED DUE TO BEING WET FROM USING URINAL
--- NOTE | 2019-01-10 19:09 | NUR ---
PT IS SITTING IN HIS WC IN HIS ROOM. ALERT AND ORIENTED X 3. DENIES ACUTE PAIN OR DISCOMFORT AT THIS TIME. NO NEEDS VOICED. O2 IS ON @ 3LPM PER NC. NO SOB NOTED. HEMATOMA TO SCALP IS HEALING WELL. CALL LIGHT AND BEDSIDE TABLE ARE WITHIN EASY REACH.
[2019-01-10 20:00] VITALS: BP 171/86
--- NOTE | 2019-01-10 21:30 | NUR ---
PT RESTING IN BED WITH EYES CLOSED. CPAP ON.
--- NOTE | 2019-01-11 00:50 | NUR ---
I have reviewed this patient and I concur with the Shift Assessment completed by the Licensed Practical Nurse today this shift.
--- NOTE | 2019-01-11 03:42 | NUR ---
QUIET HOURS. PT LYING IN BED EYES CLOSED RESTING QUIETLY. HOME CPAP ON FUNCTIONING PROPERLY. RR EVEN AND UNLABORED. CL IN REACH. BED ALARM ON.
[2019-01-11 05:47] LABS: BASOPHILS 0.5 % (0-2); EOSINOPHILS 1.9 % (0-7); HEMATOCRIT 32.2 % (42.0-54.0); HEMOGLOBIN 10.1 g/dL (13.5-17.5); IMMATURE GRANULOCYTES 0.3 % (0-5); LYMPHOCYTES 20.1 % (15-50); MCH 28.3 pg (26.0-34.0); MCHC 31.4 g/dL (31.0-37.0); MCV 90.2 fL (80.0-100.0); MEAN PLATELET VOLUME 9.1 fL (7.4-10.4); MONOCYTES 9.5 % (2-11); NEUTROPHILS 67.7 % (40-80); PLATELET COUNT 121 10x3/uL (130-400); RBC 3.57 10x6/uL (4.20-6.10); RDW 15.2 % (11.5-14.5); WBC 6.3 10x3/uL (4.8-10.8)
[2019-01-11 06:02] LABS: ANION GAP 10.6 mmol/L (8-16); CALCIUM 9.1 mg/dL (8.5-10.1); CARBON DIOXIDE 26.6 mmol/L (21.0-32.0); CREATININE - SERUM 1.9 mg/dL (0.6-1.3); POTASSIUM - SERUM 3.2 mmol/L (3.5-5.1)
[2019-01-11 07:54] VITALS: BP 165/86
--- NOTE | 2019-01-11 10:01 | RHP ---
PATIENT: MALINDA FAN JR MEDICAL RECORD: [id number] ACCOUNT: [id number] LOCATION:[id number] : 36 ADMISSION DATE: 12/30/18 REHABILITATION HISTORY AND PHYSICAL EXAMINATION POST ADMISSION PHYSICIAN EXAMINATION DATE OF ADMISSION: 12/30/2018 ADMITTING DIAGNOSIS: Disuse myopathy. HISTORY OF PRESENT ILLNESS: The patient is an 83-year-old gentleman who was brought to the Emergency Room on 12/19/2018 because he had increased weakness, decreased appetite, and nausea. He had a prolonged hospitalization this past summer, was admitted by cardiology for cardiac catheterization, which showed severe aortic stenosis, and occlusive coronary artery disease. He underwent coronary artery bypass grafting, aortic valve replacement, and Maze procedure. He had a difficult course postoperatively due to chronic renal failure and other comorbidities and placed on Dilantin dialysis for a length of time. He was transferred to the LT for further evaluation. He continued his dialysis there. He then discharged from there to [facility] where he did not have dialysis and then was discharged to [facility] where he was just discharged on Friday of 12/18/2018. Dr. Phillips spoke to his doctor prior to then come to the Emergency Room and she said he just not been feeling well, did not have a glucometer at home. He was on insulin sliding scale and on long-acting insulin for his diabetes. His blood pressure was little high in the Emergency Room. He is afebrile. His white count was okay. His BNP was elevated at 20,415. CT of the head was done that showed no acute processes. He was admitted for pneumonia and for weakness. His baseline creatinine is between 2.2 and 2.5 prior to this hospitalization. He had history of coronary artery disease and aortic valve disease. He has got a history of diabetes, hypertension, hypothyroidism, sleep apnea, melanoma. He has got a history of prostate cancer. He did have his HemoSplit removed by Dr. Uriarte on 12/25/2018. Dr. Khan has continued to follow him during his stay. Wound care nurse was also consulted because of his stage III pressure ulcer on his left heel. The patient's states that he has had some areas since he was in [facility]. Heel protectors were in place along with Kerlix wraps upon assessment. Both heels have been cleansed with wound venetian blind cleaner and repairer and dried. He is currently on telemetry, he has self-care deficits. He has the above listed wounds. His proximal muscle weakness, IV antibiotics, fatigues easily, and ambulation requires frequent rest breaks. All these comorbid conditions continued to require 24-hour nursing care and continued need for a physician at least 5-7 days per week. Prior to this serious course of hospitalizations over the past couple of months, he was independent with mobility and ADLs, living at home with his , he has got prolonged illness, which will require intensive therapy in order to get him back to his prior level of function or better. He is currently ambulating 100 feet on 2 liters of O2, requiring 4 rest breaks to reach this distance with a rolling walker and gait belt and has a very unsteady gait. COMORBIDITIES: Include a right lower lobe pneumonia, atelectasis, pleural effusions, Serratia marcescens. He has got obstructive sleep apnea, uses CPAP at night. He has a stage IV renal failure, requiring dialysis. Coronary artery disease. He has got a pacemaker placement, atrial fib, anemia, renal insufficiency, polymyalgia rheumatica, CHF, and debility. HISTORY AND PHYSICAL [id number] MALINDA FAN JR PAST MEDICAL HISTORY: Significant for diabetes, hypothyroidism, CPAP, apnea. He has got a melanoma, prostate problems, polymyalgia rheumatica, chronic lumbago. PAST SURGICAL HISTORY: Includes appendectomy, prostatectomy, skin cancer removal, pacemaker placement, coronary artery bypass grafting, and valve replacement. ALLERGIES: ADHESIVE TAPE. CURRENT MEDICATIONS: Include erythropoietin 4000 units subQ Friday, Friday, and Friday; he is on potassium 10 mEq daily; Pepcid 40 mg daily; Lexapro 10 mg daily; Colace 100 mg daily; vitamin D 1000 units daily; aspirin 81 mg daily; carvedilol 3.125 mg b.i.d. with meals; Ventolin updrafts 2.5 q.i.d.; Synthroid 25 mcg daily; furosemide 40 mg b.i.d.; trazodone 100 mg at bedtime; melatonin 3 mg at bedtime. He is on a sliding scale low resistant with regular insulin. He is on guaifenesin 600 mg b.i.d., Dulcolax 5 mg b.i.d. He is on glucose replacement protocol. He is on updrafts with albuterol and ipratropium bromide. He is on [place] 5/325 one tab q.4 hours p.r.n., clonidine 0.1 mg q.6 hours as needed for elevated systolic blood pressure, and Tylenol 650 q.4 hours p.r.n. fever. HABITS: No current alcohol or tobacco use. FAMILY HISTORY: Noncontributory. SOCIAL HISTORY: The patient hopes to return back home and get back to his prior level of functioning prior to being in the hospital originally. REVIEW OF SYSTEMS: GENERAL: Does complain of some weakness and fatigue. HEENT: She denies cold, cough, or congestion. CARDIOVASCULAR: Denies any chest pain. LUNGS: Does complain of shortness of breath especially with minimal activity. PHYSICAL EXAMINATION: VITAL SIGNS: Stable. He is afebrile. GENERAL: An elderly gentleman, in no acute distress, alert upon exam. HEENT: Normocephalic and atraumatic. Mucosa moist. NECK: Supple. No lymphadenopathy. LUNGS: Clear at this time in upper peters. Decreased breath sounds in the bases. CARDIOVASCULAR: Seems to be a regular rate and rhythm at this time. He does have a murmur noted. ABDOMEN: Soft, benign, and nondistended. Positive bowel sounds times 4. EXTREMITIES: No clubbing, cyanosis or edema. NEUROLOGIC: He does have noted weakness. LABORATORY DATA: White count 7.5, H&H of 11 and 34 and platelet count was noted to be 143, sodium 144, potassium 3.7, BUN and creatinine of 43 and 1.9 and blood sugar is noted to be 106. 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 The patient has potential to make improvement. We instituted the following HISTORY AND PHYSICAL [id number] MALINDA FAN JR multidisciplinary therapies including, but not limited to physical, occupational, respiratory, speech, nutritional services, prosthetics and orthotics. Given his complex medical condition and risk for more complications, rehabilitation services cannot be provided at a low level of care such as skilled nurse facility. PLAN: 1. Admit to [facility] rehab for an intensive inpatient therapy to include the following disciplines: A. Physical therapy to improve gait, all transfer skills and bed mobility to a modified independent level. B. Occupational therapy to a modified independent level. C. Case management to assist with discharge planning and placement options. D. Nutrition to assist with nutritional needs. E. Rehabilitation nursing to assist in monitoring the patient's underlying medical conditions and to assist with any type of bowel or bladder management. 2. The patient's current medication and medical care will be continued. 3. The patient will be placed on standard fall precautions. 4. The patient's estimated length of stay is approximately 7-10 days. 5. We will discuss this patient during care team staff meeting this week. TRANSINT:[id number] Voice Confirmation ID: [id number] DOCUMENT ID: [id number] CATHY notes whether there has been none or any medical/functional change since admission: - No change since preadmission screen. CATHY attests patient continues to be appropriate for IRF: - Continues to be appropriate. GARETH SPEAR MD at 1001 CC: [id number] DICTATION DATE: 12/31/18911 PERSONAL LINES UNDERWRITER: 12/31/18 1022 ADM IN [facility] [address] [place] [address]
--- NOTE | 2019-01-11 10:05 | NUR ---
SITTING ON SIDE OF BED. OXYGEN IN PLACE. DENIES NEEDS OR C/O. CALL LIGHT IN REACH
--- NOTE | 2019-01-11 14:24 | NUR ---
Nutrition Follow-up: Diet: Diabetic diet PO intake: ~61% average x last 9 meals. He reports a good appetite. He has not been drinking Mark but after I explained to him how it can help with wound healing he states that he will start drinking it. Last BM: 01/10/19. Wt: 185# (12/31/18) Labs reviewed. Significant meds: SSI. Stage II PU to buttocks. Continue current nutrition regimen. RD Following.
--- NOTE | 2019-01-11 19:48 | NUR ---
GREETED PATIENT AND INTRODUCED MYSELF HER NURSE. ASSISTED PATIENT TO BATHROOM USING WHEELCHAIR. PT. BACK TO BED AND REPOSITIONED FOR COMFORT. O2 AT 2L IN USE VIA NC. RESPIRATIONS EVEN. NO S/S OF DISTRESS. CALL LIGHT IN REACH.
[2019-01-11 21:12] VITALS: BP 163/83
--- NOTE | 2019-01-12 02:40 | NUR ---
PT. RESTING QUIETLY WITH EYES CLOSED. RESPIRATIONS EVEN. NO S/S OF DISTRESS. PERSONAL CPAP IN USE. CALL LIGHT IN REACH.
--- NOTE | 2019-01-12 07:59 | NUR ---
RESTING WITH CPAP ON. NO DISTRESS NOTED. CL IN REACH.
[2019-01-12 08:27] VITALS: BP 158/73
--- NOTE | 2019-01-12 10:26 | NUR ---
NO TX GIVEN PT IN THERAPY
--- NOTE | 2019-01-12 11:39 | NUR ---
SHOWER PER OT.
--- NOTE | 2019-01-12 12:31 | NUR ---
SITTING IN WC FOR LUNCH. DRESSING TO FEET WET DURING SHOWER. CHANGED DRESSING. CHAIR ALARM ON. CL IN REACH.
--- NOTE | 2019-01-12 16:34 | NUR ---
NO CHANGE IN ASSESSMENT. NO DISTRESS NOTED. AT BS. CL IN REACH.
--- NOTE | 2019-01-12 19:13 | NUR ---
GREETED PATIENT AND INTRODUCED MYSELF HIS NURSE. PATIENT IS SITTING IN WHEELCHAIR AT THIS TIME. O2 AT 3.5 L IN USE VIA NC. RESPIRATIONS EVEN. NO S/S OF DISTRESS. RESPIRATORY IN ROOM AT THIS TIME ADMINISTERING BREATHING TREATMENT. CALL LIGHT IN REACH.
[2019-01-12 21:36] VITALS: BP 160/75
--- NOTE | 2019-01-13 01:32 | NUR ---
PT. RESTING QUIETLY WITH EYES CLOSED. CPAP IN USE. RESPIRTATIONS EVEN. NO S/S OF DISTRESS. CALL LIGHT IN REACH.
--- NOTE | 2019-01-13 05:59 | NUR ---
PT. RESTING QUIETLY WITH EYES CLOSED. CPAP IN USE. RESPIRATIONS EVEN. NO S/S OF DISTRESS. CALL LIGHT IN REACH.
[2019-01-13 06:23] LABS: ANION GAP 11.4 mmol/L (8-16); BASOPHILS 0.3 % (0-2); CARBON DIOXIDE 26.8 mmol/L (21.0-32.0); EOSINOPHILS 2.1 % (0-7); HEMATOCRIT 33.8 % (42.0-54.0); HEMOGLOBIN 10.6 g/dL (13.5-17.5); IMMATURE GRANULOCYTES 0.3 % (0-5); LYMPHOCYTES 16.3 % (15-50); MCH 28.6 pg (26.0-34.0); MCHC 31.4 g/dL (31.0-37.0); MCV 91.1 fL (80.0-100.0); MEAN PLATELET VOLUME 9.6 fL (7.4-10.4); MONOCYTES 9.6 % (2-11); NEUTROPHILS 71.4 % (40-80); PLATELET COUNT 128 10x3/uL (130-400); POTASSIUM - SERUM 3.2 mmol/L (3.5-5.1); RBC 3.71 10x6/uL (4.20-6.10); RDW 15.4 % (11.5-14.5); WBC 6.3 10x3/uL (4.8-10.8)
--- NOTE | 2019-01-13 08:00 | NUR ---
UP OOB TO BATHROOM.INCONT OF BM SMALL AMT NOTED.CLEANED AND RETURNED TO SIDE OF BED IN .MEAL SET-UP PROVIDED.BREAKFAST GIVEN.
[2019-01-13 08:34] VITALS: BP 164/84
--- NOTE | 2019-01-13 10:48 | NUR ---
SPOKE WITH PATIENT AND HIS SPOUSE AND THEY WOULD LIKE A REFERRAL TO BE MADE TO [facility]. REFERRAL HAS BEEN FAXED FOR POSSIBLE ADMISSION IN THE AM. WILL CONTINUE TO FOLLOW WITH PATIENT
--- NOTE | 2019-01-13 11:51 | NUR ---
PATIENT HAS BEEN ACCPETED TO [facility] AND WILL DISCHARGE THERE IN AM 01/14/19. WILL CONTINUE TO FOLLOW WITH PATIENT
--- NOTE | 2019-01-13 12:10 | NUR ---
PATIENT SITTING UP IN WHEELCHAIR TO EAT LUNCH. CALL LIGHT WITHIN REACH. VOICES NO NEEDS AT THIS TIME.
--- NOTE | 2019-01-13 14:21 | NUR ---
PATIENT ASST TO THE BATHROOM. INCONT OF BOWEL. THIS NURSE HELPED PATIENT CHANGE BRIEFS AND CLEAN SELF.
[2019-01-13] MEDS ORDERED: K-DUR20 MEQ PO (15:53)
--- NOTE | 2019-01-13 18:55 | NUR ---
GREETED PATIENT AND ASSISTED TO BATHROOM USING WHEELCHAIR. O2 AT 3L IN USE VIA NC. RESPIRATIONS EVEN. NO S/S OF DISTRESS. PT. BACK IN WHEELCHAIR SITTING. DENIES ANY NEEDS AT THIS TIME. CALL LIGHT IN REACH.
[2019-01-13 19:30] VITALS: BP 118/76
--- NOTE | 2019-01-13 23:43 | NUR ---
PT. RESTING QUIETLY WITH EYES CLOSED. CPAP IN USE. RESPIRATIONS EVEN. NO S/S OF DISTRESS. SR UP X 2. BED IN LOWEST POSITION. CALL LIGHT IN REACH.
--- NOTE | 2019-01-14 08:19 | NUR ---
BELVEDERE HERE TO CORROSION ENGINEER PT. PT ASSISTED TO BR BEFORE LEAVING.
--- NOTE | 2019-01-14 08:28 | NUR ---
PT DISCHARGED WITH [facility] STAFF VIA WHEELCHAIR. REPORT CALLED TO [facility].
--- NOTE | 2019-01-14 09:21 | NUR ---
PATIENT DISCHARGED TO [facility] VIA FACILITY [facility]. NO HOME HEALTH OR DME NEEDED AT THIS TIME. AN APPOINTMENT WITH DR. WEIR WILL BE MADE AT TIME OF DISCHARGE FROM FACILITY. PATIENT CHOICE FORM (HANDOUT GIVEN ) AND [facility] FORMS SIGNED, COPY GIVEN TO SPOUSE AND FILED IN CHART. DISCHARGE INSTRUCTIONS REVIEWED WITH SPOUSE AND PATIENT AND FAXED TO PCP AND SNF.
== END 2019-01-14 08:58 | DRG 91 ==
LOC: D.REHAB 16:16
PROVIDERS: ADMIT Emergency Medicine; ATTEND Emergency Medicine
DX: G72.89 Other specified myopathies (principal); J18.1 Lobar pneumonia, unspecified organism; J98.11 Atelectasis; J90 Pleural effusion, not elsewhere classified; I13.0 Hypertensive heart and chronic kidney disease with heart failure and stage 1 through stage 4 chronic kidney disease, or unspecified chronic kidney disease; N18.4 Chronic kidney disease, stage 4 (severe); I50.32 Chronic diastolic (congestive) heart failure; G47.33 Obstructive sleep apnea (adult) (pediatric); Z99.2 Dependence on renal dialysis; I25.10 Atherosclerotic heart disease of native coronary artery without angina pectoris; I48.91 Unspecified atrial fibrillation; D64.9 Anemia, unspecified; M35.3 Polymyalgia rheumatica; R53.81 Other malaise; E03.9 Hypothyroidism, unspecified

== ENCOUNTER → 2019-02-22 12:48 | Outpatient (CLI) | payer MEDICARE, BC ==
[2018-12-31 09:44] VITALS: BMI 28.1
== END | disposition home or self-care (01) ==
LOC: D.HCCECHO 02-15 08:30
PROVIDERS: ATTEND Internal Medicine Cardiovascular Disease
DX: Z95.4 Presence of other heart-valve replacement (principal); I25.10 Atherosclerotic heart disease of native coronary artery without angina pectoris